=== PATIENT | female | born 1965 | race Caucasian/White ===

== ENCOUNTER 2021-01-16 16:56 | Emergency (ER) | payer MEDICARE, MEDICAID ==
[~2021-01-16] VITALS: Ht 160 cm; Wt 134.1 kg
[~2021-01-16 16:56] MED LIST: ASPI-1264 PO; ATOR40TA71 PO; GLAT40SY3 SQ; HYDR-3972 PO; LISI40TA13 PO; LORA-269 PO; NOR5T PO; OXYB5TAB16 PO
--- NOTE | 2021-01-16 19:21 | NUR ---
FERMÍN ([facility]): [phone]
[2021-01-16 19:35] LABS: CLARITY,URINE CLOUDY (Clear); COLOR,URINE YELLOW (Yellow); GLUCOSE, URINE NEGATIVE (Neg); KETONES,URINE NEGATIVE (Neg); LEUKOCYTE ESTERASE ,URINE TRACE (Neg); NITRITES, URINE NEGATIVE (Neg); OCCULT BLOOD,URINE TRACE-INTACT (Neg); PH,URINE 5.5 (4.8-8.0); PROTEIN,URINE NEGATIVE (Neg)
[2021-01-16 19:36] LABS: UA COLLECTION TYPE CLN CATCH MIDSTREAM
[2021-01-16 19:50] LABS: CAL OXALATE CRYSTALS 3+ /HPF (NEGATIVE)
[2021-01-16] MEDS ORDERED: ketorolac tromethamine 15mg/ml inj. IM ONE (19:50)
[2021-01-16 19:51] LABS: RBC,URINE 0-2 /HPF (0-2)
[2021-01-16 19:52] LABS: BACTERIA,URINE FEW /HPF (Neg); MUCUS STRANDS NONE SEEN /LPF (Neg); SQUAMOUS EPITHELIAL CELL,UR FEW /LPF (FEW)
[2021-01-16] MEDS ORDERED: CYCL-1 PO (21:56)
[2021-01-16 22:14] VITALS: BP 153/91
== END 2021-01-16 22:05 | disposition home or self-care (01) ==
LOC: ER 16:57
DX: M54.5 Low back pain (principal); M25.562 Pain in left knee; I10 Essential (primary) hypertension; Z86.73 Personal history of transient ischemic attack (TIA), and cerebral infarction without residual deficits; Z87.442 Personal history of urinary calculi; Z87.440 Personal history of urinary (tract) infections; Z90.89 Acquired absence of other organs; Z98.51 Tubal ligation status; Z56.0 Unemployment, unspecified; Z88.1 Allergy status to other antibiotic agents; Z88.8 Allergy status to other drugs, medicaments and biological substances; Z79.82 Long term (current) use of aspirin; Z79.899 Other long term (current) drug therapy
CPT/HCPCS: 73564; 81001; 87088; 96372; 99284; J1885

== ENCOUNTER 2021-05-01 06:45 | Day surgery (SDC) | payer MEDICARE, MEDICAID ==
[2021-05-01] VITALS (43 sets, daily range): BP systolic 108–165; BP diastolic 52–105
[~2021-05-01] VITALS: Ht 160 cm; Wt 133.0 kg
[~2021-05-01 06:45] MED LIST changes: +AMLO10TA13 PO; -ASPI-1264 PO; -ATOR40TA71 PO; +ATOR40TA72 PO; +BUPIVAcaine 0.5% inj/PF 30 ML ONE; +DIRO231C2 PO; -GLAT40SY3 SQ; +HYDR25TA4 PO; -LORA-269 PO; -NOR5T PO; -OXYB5TAB16 PO; +bacitracin 15gm ointment TP ONE; +ceFAZolin inj. 3,000 MG in normal saline 100ml IV soln 100 ML IV ONE; +famotidine 20mg tablet PO ONE; +ringers solution, lacted 1,000 ML IV SCH
[2021-05-01 08:28] LABS: BASOPHILS # (AUTO) 0.1 X10'3 (0-0.2); BASOPHILS % (AUTO) 1.2 % (0-1); EOSINOPHILS # (AUTO) 0.1 X10'3 (0-0.9); EOSINOPHILS % (AUTO) 1.8 % (0-6); LYMPHOCYTES # (AUTO) 0.8 X10'3 (1.1-4.8); LYMPHOCYTES % (AUTO) 15.7 % (21-51); MEAN CORPUSCULAR HEMOGLOBIN 29.4 PG (27.0-31.0); MEAN CORPUSCULAR HGB CONC 33.5 g/dL (33.0-36.5); MEAN CORPUSCULAR VOLUME 87.6 FL (78-98); MEAN PLATELET VOLUME 9.6 FL (7.4-10.4); MONOCYTES # (AUTO) 0.4 X10'3 (0-0.9); MONOCYTES % (AUTO) 7.7 % (2-12); NEUTROPHILS # (AUTO) 3.7 X10'3 (1.8-7.7); NEUTROPHILS % (AUTO) 73.6 % (42-75); PRE OP HEMOGLOBIN 14.1 g/dL (12.0-16.0); PRE OP PLATELET COUNT 261 X10'3 (140-440); RED BLOOD COUNT 4.79 X10'6 (4.20-5.60); RED CELL DISTRIBUTION WIDTH 14.1 % (11.5-14.5)
[2021-05-01] MEDS ORDERED: diazepam 5mg tablet PO ONE (08:30)
[2021-05-01 08:56] LABS: ALANINE AMINOTRANSFERASE 37 U/L (12-78); ALBUMIN 3.5 G/DL (3.4-5.0); ALBUMIN/GLOBULIN RATIO 0.8 (1.1-1.5); ALKALINE PHOSPHATASE 119 IU/L (46-116); ANION GAP 10 (8-16); ASPARTATE AMINO TRANSFERASE 22 U/L (10-37); BILIRUBIN,TOTAL 0.3 MG/DL (0.1-1.0); BLOOD UREA NITROGEN 10 MG/DL (7-18); BUN/CREATININE RATIO 14.1 (6.6-38.0); CALCIUM 9.4 MG/DL (8.5-10.1); CHLORIDE 108 MMOL/L (99-107); CREATININE 0.71 MG/DL (0.40-0.90); GLUCOSE 100 MG/DL (70-104); POTASSIUM 3.8 MMOL/L (3.5-5.1); SODIUM 145 MMOL/L (135-145); TOTAL CARBON DIOXIDE 27.4 MMOL/L (24-32); eGFR 86 ML/MIN
[2021-05-01] MEDS ORDERED: sevoflurane 250ml liquid IH ONE (09:01)
[2021-05-01] MEDS ORDERED: ondansetron/PF 4mg/2ml inj ONE (09:01)
[2021-05-01] MEDS ORDERED: glycopyrrolate 0.2mg/ml inj ONE (09:01)
[2021-05-01] MEDS ORDERED: fentaNYL/PF 50MCG/1 ML 2ML syringe ONE (09:06)
[2021-05-01] MEDS ORDERED: propofol inj 20 ML IV ONE (09:21)
[2021-05-01] MEDS ORDERED: midazolam 1 mg/ML 2ml injection ONE (09:21)
[2021-05-01] MEDS ORDERED: LIDOcaine 2% (20mg/ml) 5ml vial ONE (09:21)
--- NOTE | 2021-05-01 10:08 | NUR ---
Received from OR via , accompanied by Anesthesiologist DR CARRASQUILLO and report given by Anesthesiolgist. PT PRESETS WITH 20G PIV LEFT AC, DRESSING ON PT'S LEFT FOOT DRY AND INTACT. VSS. Addendum: 05/01/21 at 1013 by Olivia Soto RN, RN Amended: Links added.
[2021-05-01] MEDS ORDERED: hydrALAZINE 20mg/ml inj. IV PRN (10:25)
[2021-05-01] MEDS ORDERED: acetaminophen 1,000mg/100ml IV 100 ML IV PRN (10:25)
[2021-05-01] MEDS ORDERED: ondansetron/PF 4mg/2ml inj IV PRN ×2 (10:25→16:50)
[2021-05-01] MEDS ORDERED: ringers solution, lacted 1,000 ML IV SCH (10:25)
[2021-05-01] MEDS ORDERED: labetalol 20mg/4ml (5mg/ml) syringe IV PRN (10:25)
[2021-05-01] MEDS ORDERED: morphine 4 MG/ML inj SYRINge IV PRN (10:25)
[2021-05-01] MEDS ORDERED: proCHLORperazine 10 MG/2 ml inj IV PRN (10:25)
[2021-05-01] MEDS ORDERED: meperidine/PF 25mg/ml syringe IV PRN ×2 (10:25)
[2021-05-01] MEDS ORDERED: morphine 2 MG/ML inj. syringe IV PRN ×2 (10:25→16:50)
--- NOTE | 2021-05-01 11:10 | NUR ---
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 PT KIRSTEN NOT PUSH OR PULL WITH RIGHT SIDED FOOT. DR CARRASQUILLO CALLED, DR CARRASQUILLO ASKED TO CALL THE STROKE NURSE FOR PT. Addendum: 05/01/21 at 1122 by Olivia Soto RN, RN Amended: Links added.
--- NOTE | 2021-05-01 11:25 | NUR ---
PT BLOOD GLUCOSE 116 AT 1125, Addendum: 05/01/21 at 1236 by Olivia Soto RN RN Amended: Links added.
--- NOTE | 2021-05-01 11:52 | NUR ---
PT BACK FROM CT ON MONITOR, DR CARRASQUILLO STROKE NURSE LAKHWINDER AT BEDSIDE EVALAUTING PT. Addendum: 05/01/21 at 1153 by Olivia Soto RN, RN Amended: Links added.
--- NOTE | 2021-05-01 11:56 | NUR ---
TELE MONITOR AT BEDSIDE JACKLYNING FOR TELE NEURO, LAKHWINDER SALAZAR STROKE NURSE AT BEDSIDE WITH DR CARRASQUILLO. Addendum: 05/01/21 at 1157 by Olivia Soto RN, RN Amended: Links added.
--- NOTE | 2021-05-01 12:01 | NUR ---
PER DR CARRASQUILLO CT IS NEGATIVE, PT IS BEING EVALUATED BY GALI TA. Addendum: 05/01/21 at 1203 by Olivia Soto RN RN Amended: Links added.
[2021-05-01] MEDS ORDERED: acetaminophen 325mg tablet PO PRN ×2 (12:10→16:50)
--- NOTE | 2021-05-01 12:28 | NUR ---
DR ROSA TELE MEDICINE NEUROLOGIST COMPLETE EVALAUTEION. DR ROSA RECOMMENDED MIGRAINE COCKTAIL AND IF SYMPTOMS RESOLVE AFTER HEADACHE RESOLVES SHE CAN GO HOME AND FOLLOW UP WITH HER PCP. IF SYMPTOMS PERISIST WILL NEED AND ADMISSION FOR R/O CVA. PT'S RIGHT SIDED WEAKNESS IMPROVED SOME PRIOR TO NEUROLOGIST ASSESSMENT Addendum: 05/01/21 at 1231 by Olivia Soto RN, RN Amended: Links added.
--- NOTE | 2021-05-01 12:34 | NUR ---
DR WU NOTIFIED OF PT CONDITION, AND WE MIGHT NEED ADMIT ORDERSW FOR PT IF SYMPTOMS DO NOT RESOLVE. Addendum: 05/01/21 at 1235 by Olivia Soto RN, RN Amended: Links added.
[2021-05-01] MEDS: meperidine/PF 25mg/ml syringe IV PRN ×2 (13:33→14:56)
--- NOTE | 2021-05-01 13:36 | NUR ---
LAKHWINDER SALAZAR STROKE NURSE AT BEDSIDE, PT REPORTS DUNN PAIN 04/14. PT MEDICATED FOR PAIN 04/14. DR WU CALLED NO ANSWER. MCKAY KEANE RN REQUESTING TORADOL FOR PT DUNN. Addendum: 05/01/21 at 1337 by Mariajose Bryant RN Amended: Links added.
[2021-05-01] MEDS ORDERED: ketorolac trometh. 30mg/ml inj. IV ONE (14:20)
--- NOTE | 2021-05-01 15:45 | NUR ---
Patient states she still has a headache the right arm is better only has some numbness in her fingers. Right leg is better but still weaker than left, concerned about being able to use crutches at home.
[2021-05-01] MEDS ORDERED: mag hydrox/Alum hydrox/simeth 30ml oral suspension PO PRN (16:50)
[2021-05-01] MEDS ORDERED: HYDROcodone/acetaminophen 5mg/325mg tablet PO PRN (16:50)
[2021-05-01] MEDS ORDERED: magnesium hydroxide 30ml (MOM) UD suspension PO PRN (16:50)
--- NOTE | 2021-05-01 17:38 | NUR ---
PATIENT HAS MET ALL CRITERIA FOR TRANSFER TO THE ORTHO FLOOR. VSS. DRESSINGS INTACT. BED LOW, CALL LIGHT PRESENT AND 2 RAILS UP. CARLYLE SALAZAR PRESENT TO ACCEPT CARE OF PATIENT AND REPORT HAS BEEN CALLED. ALL QUESTIONS ANSWERED TO ACCEPTING RN. Addendum: 05/01/21 at 1758 by Olivia Soto RN RN Amended: Links added.
--- NOTE | 2021-05-01 18:00 | NUR ---
Patient in room ORTHO 4013. I have received report from Ermelinda SALAZAR and had the opportunity to ask questions and assume patient care. Addendum: 05/02/21 at 0120 by Kathryn Elizalde RN Amended: Links added.
[2021-05-01] MEDS: HYDROcodone/acetaminophen 10/325mg tab PO PRN (18:04)
--- NOTE | 2021-05-01 19:07 | NUR ---
Problems reprioritized. Patient report given, questions answered & plan of care reviewed with nadine juarez.
--- NOTE | 2021-05-01 21:00 | NUR ---
Pt. awake A & O Rt ORIF of her L 2nd digit with drsg and pin in place at this time. Pt. able to move self in bed with minimal assist at this time. Pt. voiding adequately. Call light within reach. Addendum: 05/02/21 at 0124 by Kathryn Elizalde RN Amended: Links added.
[2021-05-02] MEDS: heparin, porcine 5000 units/ml vial SQ SCH ×2 (00:01→07:27)
[2021-05-02] MEDS: HYDROcodone/acetaminophen 10/325mg tab PO PRN ×3 (00:01→10:09)
[2021-05-02] MEDS: docusate sod 100mg capsule PO SCH ×2 (00:06→07:25)
[2021-05-02] MEDS: [UNRECOGNIZED DRUG - OTHER] PO SCH ×2 (00:07→08:00)
[2021-05-02 03:00] VITALS: BP_SYST 124; BP_SYST 130; BP_DIAS 79
--- NOTE | 2021-05-02 06:24 | NUR ---
reported to days. anticipate discharge with weightbearing status clarified
[2021-05-02 06:58] LABS: ALANINE AMINOTRANSFERASE 35 U/L (12-78); ALBUMIN 3.2 G/DL (3.4-5.0); ALBUMIN/GLOBULIN RATIO 0.9 (1.1-1.5); ALKALINE PHOSPHATASE 127 IU/L (46-116); ANION GAP 9 (8-16); BILIRUBIN,TOTAL 0.4 MG/DL (0.1-1.0); BLOOD UREA NITROGEN 16 MG/DL (7-18); BUN/CREATININE RATIO 23.9 (6.6-38.0); CALCIUM 9.7 MG/DL (8.5-10.1); CHLORIDE 106 MMOL/L (99-107); CHOL/HDL RATIO 5.8 (0.00-4.99); CHOLESTEROL 261 MG/DL (0-200); CREATININE 0.67 MG/DL (0.40-0.90); GLUCOSE 136 MG/DL (70-104); HDL CHOLESTEROL 45 MG/DL (35-60); LDL CHOLESTEROL 176 MG/DL (50-100); SODIUM 139 MMOL/L (135-145); TOTAL CARBON DIOXIDE 24.4 MMOL/L (24-32); TOTAL PROTEIN 6.9 G/DL (6.4-8.2); TRIGLYCERIDES 141 MG/DL (20-135); eGFR > 90 ML/MIN
[2021-05-02 07:03] LABS: ASPARTATE AMINO TRANSFERASE 31 U/L (10-37)
[2021-05-02 07:05] LABS: POTASSIUM 4.4 MMOL/L (3.5-5.1)
[2021-05-02 08:00] VITALS: BP 155/84
[2021-05-02] MEDS ORDERED: atorvastatin 20mg tablet PO SCH (08:00)
[2021-05-02] MEDS ORDERED: amLODIPine 5mg tablet PO SCH (08:00)
[2021-05-02] MEDS ORDERED: HYDROchlorothiazide 25mg tablet PO SCH (08:00)
[2021-05-02] MEDS ORDERED: lisinopril 20mg tablet PO SCH (08:00)
[2021-05-02 08:28] LABS: BASOPHILS # (AUTO) 0.1 X10'3 (0-0.2); BASOPHILS % (AUTO) 0.8 % (0-1); EOSINOPHILS % (AUTO) 0.1 % (0-6); HEMATOCRIT 41.3 % (35.0-45.0); HEMOGLOBIN 14.1 g/dl (12.0-16.0); LYMPHOCYTES # (AUTO) 0.9 X10'3 (1.1-4.8); LYMPHOCYTES % (AUTO) 10.3 % (21-51); MEAN CORPUSCULAR HEMOGLOBIN 29.7 PG (27.0-31.0); MEAN CORPUSCULAR HGB CONC 34.3 g/dL (33.0-36.5); MEAN CORPUSCULAR VOLUME 86.8 FL (78-98); MEAN PLATELET VOLUME 9.6 FL (7.4-10.4); MONOCYTES # (AUTO) 0.6 X10'3 (0-0.9); MONOCYTES % (AUTO) 6.9 % (2-12); NEUTROPHILS # (AUTO) 7.2 X10'3 (1.8-7.7); NEUTROPHILS % (AUTO) 81.9 % (42-75); PLATELET COUNT 274 X10'3 (140-440); RED BLOOD COUNT 4.75 X10'6 (4.20-5.60); RED CELL DISTRIBUTION WIDTH 13.8 % (11.5-14.5); WHITE BLOOD COUNT 8.8 X10'3 (4.5-11.0)
[2021-05-02 08:49] LABS: PARTIAL THROMBOPLASTIN TIME 24 SECONDS (22-32)
[2021-05-02] MEDS ORDERED: FLUT16SP2 BOTHNARES (11:59)
[2021-05-02] MEDS ORDERED: AMOX-580 PO (11:59)
[2021-05-02 12:00] VITALS: BP 142/77
== END 2021-05-02 16:15 | disposition home or self-care (01) ==
LOC: PAS 06:45 → ORTHO 4S 16:53 → PAS 05-02 16:15
PROVIDERS: ATTEND Podiatrist Foot & Ankle Surgery
DX: S93.115A Dislocation of interphalangeal joint of left lesser toe(s), initial encounter (principal); J32.8 Other chronic sinusitis; G35 Multiple sclerosis; C85.90 Non-Hodgkin lymphoma, unspecified, unspecified site; E78.5 Hyperlipidemia, unspecified; I10 Essential (primary) hypertension; G89.29 Other chronic pain; E66.9 Obesity, unspecified; Z68.43 Body mass index [BMI] 50.0-59.9, adult; Z79.82 Long term (current) use of aspirin; Z79.899 Other long term (current) drug therapy; Z98.890 Other specified postprocedural states; Z88.8 Allergy status to other drugs, medicaments and biological substances; Z88.1 Allergy status to other antibiotic agents; Z91.041 Radiographic dye allergy status; Z87.442 Personal history of urinary calculi; Z79.01 Long term (current) use of anticoagulants; Z20.822 Contact with and (suspected) exposure to COVID-19; Z98.51 Tubal ligation status; Z86.73 Personal history of transient ischemic attack (TIA), and cerebral infarction without residual deficits; Z82.49 Family history of ischemic heart disease and other diseases of the circulatory system; W19.XXXA Unspecified fall, initial encounter; Y93.89 Activity, other specified; Y92.89 Other specified places as the place of occurrence of the external cause; Y99.8 Other external cause status
CPT/HCPCS: 28675; 36415; 70450; 73620; 76000; 80053; 80061; 82948; 85025; 85610; 85730; 87635; 97161; 97530; A6223; C1713; C9803; J0131; J0690; J0780; J1644; J1885; J2001; J2175; J2250; J2270; J2405; J2704; J3010; Z7506; Z7508; Z7512; A4215; A4618; A6449; A7000; G0378; J3490; J7120

== ENCOUNTER 2021-06-22 20:42 | Emergency (ER) | payer MEDICARE, MEDICAID ==
[~2021-06-22] VITALS: Ht 160 cm; Wt 127.3 kg
[~2021-06-22 20:42] MED LIST changes: +AMOX-580 PO; -BUPIVAcaine 0.5% inj/PF 30 ML ONE; +FLUT16SP2 BOTHNARES; -bacitracin 15gm ointment TP ONE; -ceFAZolin inj. 3,000 MG in normal saline 100ml IV soln 100 ML IV ONE; -famotidine 20mg tablet PO ONE; -ringers solution, lacted 1,000 ML IV SCH
[2021-06-22 20:48] VITALS: BP 186/93
[2021-06-22] MEDS ORDERED: normal saline 1000ml 1,000 ML IV ONE (21:05)
[2021-06-22] MEDS ORDERED: morphine 4 MG/ML inj SYRINge IV ONE (21:05)
[2021-06-22] MEDS ORDERED: proCHLORperazine 10 MG/2 ml inj IV ONE (21:25)
[2021-06-22] MEDS ORDERED: ketorolac tromethamine 15mg/ml inj. IV ONE (21:25)
[2021-06-22 21:36] LABS: BASOPHILS # (AUTO) 0.1 X10'3 (0-0.2); BASOPHILS % (AUTO) 0.7 % (0-1); EOSINOPHILS # (AUTO) 0.2 X10'3 (0-0.9); EOSINOPHILS % (AUTO) 2.5 % (0-6); HEMATOCRIT 39.7 % (35.0-45.0); HEMOGLOBIN 13.8 g/dl (12.0-16.0); LYMPHOCYTES # (AUTO) 0.9 X10'3 (1.1-4.8); LYMPHOCYTES % (AUTO) 10.9 % (21-51); MEAN CORPUSCULAR HEMOGLOBIN 30.4 PG (27.0-31.0); MEAN CORPUSCULAR HGB CONC 34.7 g/dL (33.0-36.5); MEAN CORPUSCULAR VOLUME 87.6 FL (78-98); MEAN PLATELET VOLUME 9.7 FL (7.4-10.4); MONOCYTES # (AUTO) 0.6 X10'3 (0-0.9); MONOCYTES % (AUTO) 7.3 % (2-12); NEUTROPHILS # (AUTO) 6.1 X10'3 (1.8-7.7); NEUTROPHILS % (AUTO) 78.6 % (42-75); PLATELET COUNT 242 X10'3 (140-440); RED BLOOD COUNT 4.53 X10'6 (4.20-5.60); RED CELL DISTRIBUTION WIDTH 14.2 % (11.5-14.5); WHITE BLOOD COUNT 7.8 X10'3 (4.5-11.0)
[2021-06-22 21:53] LABS: ALANINE AMINOTRANSFERASE 37 U/L (12-78); ALBUMIN 3.2 G/DL (3.4-5.0); ALBUMIN/GLOBULIN RATIO 0.9 (1.1-1.5); ALKALINE PHOSPHATASE 107 IU/L (46-116); ANION GAP 8 (8-16); BILIRUBIN,TOTAL 0.2 MG/DL (0.1-1.0); BLOOD UREA NITROGEN 18 MG/DL (7-18); BUN/CREATININE RATIO 23.1 (6.6-38.0); CALCIUM 9.2 MG/DL (8.5-10.1); CHLORIDE 112 MMOL/L (99-107); CREATININE 0.78 MG/DL (0.40-0.90); GLUCOSE 113 MG/DL (70-104); LIPASE 132 U/L (73-393); SODIUM 146 MMOL/L (135-145); TOTAL CARBON DIOXIDE 26.4 MMOL/L (24-32); TOTAL PROTEIN 6.9 G/DL (6.4-8.2); eGFR 77 ML/MIN
[2021-06-22 21:59] LABS: ASPARTATE AMINO TRANSFERASE 32 U/L (10-37); POTASSIUM 3.9 MMOL/L (3.5-5.1)
[2021-06-22 22:11] LABS: TOTAL CELLS COUNTED 100
[2021-06-22 22:12] LABS: PLATELET ESTIMATE NORMAL
[2021-06-22 22:37] LABS: URINE HCG NEGATIVE (NEG)
[2021-06-22 22:38] LABS: CLARITY,URINE SLIGHTLY CLOUDY (Clear); COLOR,URINE YELLOW (Yellow); UA COLLECTION TYPE CLN CATCH MIDSTREAM
[2021-06-22 22:39] LABS: GLUCOSE, URINE NEGATIVE (Neg); KETONES,URINE NEGATIVE (Neg); LEUKOCYTE ESTERASE ,URINE NEGATIVE (Neg); NITRITES, URINE NEGATIVE (Neg); OCCULT BLOOD,URINE LARGE (Neg); PROTEIN,URINE NEGATIVE (Neg); UROBILINOGEN,URINE 0.2 E.U/dL (0.2-1.0)
[2021-06-22 22:45] LABS: CAL OXALATE CRYSTALS FEW /HPF (NEGATIVE); MUCUS STRANDS FEW /LPF (Neg)
[2021-06-22 22:46] LABS: BACTERIA,URINE FEW /HPF (Neg); RBC,URINE 20-50 /HPF (0-2)
[2021-06-22 22:47] LABS: SQUAMOUS EPITHELIAL CELL,UR MODERATE /LPF (FEW)
[2021-06-22] MEDS ORDERED: IBUP-1985 PO (23:33)
[2021-06-22] MEDS ORDERED: FLO0.4C PO (23:33)
[2021-06-22] MEDS ORDERED: CEPH250T PO (23:33)
[2021-06-24] MEDS ORDERED: IBUP-1986 PO (08:05)
[2021-06-24] MEDS ORDERED: ATI1T PO (08:07)
== END 2021-06-23 00:21 | disposition home or self-care (01) ==
LOC: ER 20:42
DX: N20.0 Calculus of kidney (principal); G35 Multiple sclerosis; I10 Essential (primary) hypertension; Z87.440 Personal history of urinary (tract) infections; Z86.73 Personal history of transient ischemic attack (TIA), and cerebral infarction without residual deficits; Z90.49 Acquired absence of other specified parts of digestive tract; Z98.51 Tubal ligation status; Z56.0 Unemployment, unspecified; Z79.2 Long term (current) use of antibiotics; Z87.442 Personal history of urinary calculi; Z79.899 Other long term (current) drug therapy; Z91.041 Radiographic dye allergy status; Z88.1 Allergy status to other antibiotic agents; Z88.8 Allergy status to other drugs, medicaments and biological substances
CPT/HCPCS: 36415; 74176; 80053; 81001; 81025; 83690; 85007; 85025; 87088; 96361; 96374; 96375; 99284; J0780; J1885; J2270; J7030

== ENCOUNTER 2021-06-23 16:10 | Inpatient (IN) | payer MEDICARE, MEDICAID ==
[~2021-06-23] VITALS: Ht 160 cm; Wt 127.3 kg
[~2021-06-23 16:10] MED LIST changes: +CEPH250T PO; +FLO0.4C PO; +IBUP-1985 PO
[2021-06-23] MEDS ORDERED: morphine 10mg/ml inj. IV ONE (19:50)
[2021-06-23 21:11] LABS: BASOPHILS % (AUTO) 0.4 % (0-1); EOSINOPHILS % (AUTO) 0.4 % (0-6); HEMOGLOBIN 15.2 g/dl (12.0-16.0); MEAN CORPUSCULAR HEMOGLOBIN 29.9 PG (27.0-31.0); MEAN CORPUSCULAR HGB CONC 34.5 g/dL (33.0-36.5); MEAN CORPUSCULAR VOLUME 86.7 FL (78-98); MEAN PLATELET VOLUME 9.6 FL (7.4-10.4); MONOCYTES # (AUTO) 0.9 X10'3 (0-0.9); MONOCYTES % (AUTO) 8.2 % (2-12); NEUTROPHILS # (AUTO) 8.9 X10'3 (1.8-7.7); PLATELET COUNT 241 X10'3 (140-440); RED BLOOD COUNT 5.08 X10'6 (4.20-5.60); RED CELL DISTRIBUTION WIDTH 14.1 % (11.5-14.5); WHITE BLOOD COUNT 10.9 X10'3 (4.5-11.0)
[2021-06-23 21:14] LABS: ALBUMIN 3.4 G/DL (3.4-5.0); ANION GAP 9 (8-16); BLOOD UREA NITROGEN 15 MG/DL (7-18); BUN/CREATININE RATIO 13.2 (6.6-38.0); CALCIUM 9.6 MG/DL (8.5-10.1); CHLORIDE 104 MMOL/L (99-107); CREATININE 1.14 MG/DL (0.40-0.90); GLUCOSE 123 MG/DL (70-104); SODIUM 140 MMOL/L (135-145); TOTAL CARBON DIOXIDE 27.4 MMOL/L (24-32); eGFR 50 ML/MIN
[2021-06-23] MEDS ORDERED: potassium Cl 20 mEq SR tablet PO PRN ×2 (22:45)
[2021-06-23] MEDS ORDERED: magnesium 2GM in 50ml NS 50 ML IV PRN (22:45)
[2021-06-23] MEDS ORDERED: acetaminophen 325mg tablet PO PRN (22:45)
[2021-06-23] MEDS ORDERED: magnesium 4gm in 100ml NS 100 ML IV PRN (22:45)
[2021-06-23] MEDS ORDERED: magnesium Cl slow-release 64mg tablet PO PRN (22:45)
[2021-06-23] MEDS ORDERED: morphine 2 MG/ML inj. syringe IV PRN (22:45)
[2021-06-23] MEDS ORDERED: potassium Cl 40MEQ/1/2NS 520ml 520 ML IV PRN ×2 (22:45)
[2021-06-23] MEDS: normal saline 1000ml 1,000 ML IV SCH (23:09)
[2021-06-24] MEDS: morphine 2 MG/ML inj. syringe IV PRN ×6 (00:45→18:29)
[2021-06-24] MEDS: ondansetron/PF 4mg/2ml inj IV PRN ×3 (00:45→18:29)
--- NOTE | 2021-06-24 02:04 | NUR ---
PT MOVED TO A HOSPITAL BED DUE TO PT COMPLAINTS THAT THE GURNEY WAS CAUSING HER EVEN WORSE BACK PAIN. PT IS SITTING COMFORTABLY ON THE NEW BED, RESTING WITH EYES CLOSED WITH DEEP AND EVEN RESPIRATIONS.
[2021-06-24 04:05] LABS: BASOPHILS % (AUTO) 0.3 % (0-1); EOSINOPHILS % (AUTO) 0.4 % (0-6); HEMATOCRIT 41.7 % (35.0-45.0); HEMOGLOBIN 13.9 g/dl (12.0-16.0); LYMPHOCYTES # (AUTO) 0.9 X10'3 (1.1-4.8); LYMPHOCYTES % (AUTO) 8.4 % (21-51); MEAN CORPUSCULAR HEMOGLOBIN 29.8 PG (27.0-31.0); MEAN CORPUSCULAR HGB CONC 33.4 g/dL (33.0-36.5); MEAN PLATELET VOLUME 9.9 FL (7.4-10.4); MONOCYTES # (AUTO) 0.8 X10'3 (0-0.9); NEUTROPHILS # (AUTO) 8.7 X10'3 (1.8-7.7); NEUTROPHILS % (AUTO) 82.9 % (42-75); PLATELET COUNT 210 X10'3 (140-440); RED BLOOD COUNT 4.68 X10'6 (4.20-5.60); RED CELL DISTRIBUTION WIDTH 13.6 % (11.5-14.5); WHITE BLOOD COUNT 10.4 X10'3 (4.5-11.0)
[2021-06-24 04:16] LABS: ALBUMIN 3.1 G/DL (3.4-5.0); ANION GAP 10 (8-16); BLOOD UREA NITROGEN 18 MG/DL (7-18); BUN/CREATININE RATIO 16.8 (6.6-38.0); CALCIUM 9.4 MG/DL (8.5-10.1); CHLORIDE 106 MMOL/L (99-107); CREATININE 1.07 MG/DL (0.40-0.90); GLUCOSE 146 MG/DL (70-104); MAGNESIUM 2.1 MG/DL (1.5-2.4); POTASSIUM 3.7 MMOL/L (3.5-5.1); SODIUM 140 MMOL/L (135-145); eGFR 53 ML/MIN
[2021-06-24] MEDS: K and/or MAG REPLACEMENT MC SCH ×2 (08:00→21:10)
[2021-06-24] MEDS: docusate sod 100mg capsule PO SCH ×2 (08:00→20:00)
[2021-06-24] MEDS ORDERED: IBUP-1986 PO (08:05)
[2021-06-24] MEDS ORDERED: ATI1T PO (08:07)
[2021-06-24] MEDS ORDERED: FLU VACC QS2021-22(6MOS UP)/PF 60 MCG/0.5 ML SYRINGE IM ONE (09:00)
[2021-06-24] MEDS: ringers solution, lacted 1,000 ML IV SCH ×2 (10:10→20:10)
[2021-06-24] MEDS: normal saline 1000ml 1,000 ML IV SCH ×2 (11:01→18:45)
--- NOTE | 2021-06-24 12:01 | NUR ---
OR TO PICK PT TO SURG AROUND 190
--- NOTE | 2021-06-24 12:14 | NUR ---
npo since 0900 today
--- NOTE | 2021-06-24 13:35 | NUR ---
PAGER ID: [phone] MESSAGE: MARIAELENA [phone] RE: [facility] BED 9 MS NOT LASTING THE 4 HOURS. CAN WE GIVE SOEMTHING ELSE?
[2021-06-24] MEDS ORDERED: morphine 2 MG/ML inj. syringe IV PRN (14:05)
[2021-06-24 15:43] LABS: CLARITY,URINE SLIGHTLY CLOUDY (Clear); COLOR,URINE YELLOW (Yellow); GLUCOSE, URINE NEGATIVE (Neg); KETONES,URINE TRACE mg/dl (Neg); LEUKOCYTE ESTERASE ,URINE TRACE (Neg); NITRITES, URINE NEGATIVE (Neg); OCCULT BLOOD,URINE MODERATE (Neg); PROTEIN,URINE NEGATIVE (Neg); UA COLLECTION TYPE CLN CATCH MIDSTREAM; UROBILINOGEN,URINE 0.2 E.U/dL (0.2-1.0)
--- NOTE | 2021-06-24 15:45 | NUR ---
OR CALLED PT GOING TO SURGERY TOMORROW AT 0768
[2021-06-24 15:51] LABS: BACTERIA,URINE 1+ /HPF (Neg); CAL OXALATE CRYSTALS 4+ /HPF (NEGATIVE); MUCUS STRANDS FEW /LPF (Neg); RENAL CELLS, URINE FEW /HPF; SQUAMOUS EPITHELIAL CELL,UR MODERATE /LPF (FEW); TRANSITIONAL EPI CELLS,URINE FEW /HPF
[2021-06-24 19:35] VITALS: BP 143/86
[2021-06-24] MEDS ORDERED: levoFLOXACIN-Levaquin 500mg/D5 100 ML IV ONE (19:40)
[2021-06-24] MEDS ORDERED: LORazepam 1 MG tablet PO PRN (19:45)
[2021-06-24] MEDS: DIROXIMEL FUMARATE 231 MG PO SCH (20:00)
[2021-06-24] MEDS ORDERED: CefTRIAXone/D5W-Rocephin 1gm 50 ML IV SCH (20:00)
--- NOTE | 2021-06-24 20:20 | NUR ---
PATIENT ADMITTED TO 340A FROM ER FOR KIDNEY STONE. PLACED COMFORTABLE IN BED. VITAL SIGNS TAKEN AND RECORDED.
[2021-06-24] MEDS: HYDROcodone/acetaminophen 10/325mg tab PO PRN (20:33)
[2021-06-25] VITALS (12 sets, daily range): BP systolic 135–175; BP diastolic 66–89
[2021-06-25] MEDS: morphine 2 MG/ML inj. syringe IV PRN ×2 (01:23→11:31)
[2021-06-25] MEDS: ringers solution, lacted 1,000 ML IV SCH ×2 (03:54→11:37)
[2021-06-25] MEDS: normal saline 1000ml 1,000 ML IV SCH ×2 (04:45→14:45)
[2021-06-25] MEDS: HYDROcodone/acetaminophen 10/325mg tab PO PRN ×2 (04:50→15:35)
--- NOTE | 2021-06-25 06:09 | NUR ---
Problems reprioritized. Patient report given, questions answered & plan of care reviewed with ONEIL SALAZAR.
--- NOTE | 2021-06-25 07:00 | NUR ---
Pt. taken to OR for possible R side stent placement by John.
--- NOTE | 2021-06-25 07:11 | NUR ---
Called report to recovery.
[2021-06-25] MEDS ORDERED: HYDROmorphone/PF 0.2 MG/ML SYRINGE IV PRN ×2 (07:15)
[2021-06-25] MEDS ORDERED: labetalol 20mg/4ml (5mg/ml) syringe IV PRN (07:15)
[2021-06-25] MEDS ORDERED: ringers solution, lacted 1,000 ML IV SCH (07:15)
[2021-06-25] MEDS ORDERED: ondansetron/PF 4mg/2ml inj IV PRN (07:15)
[2021-06-25] MEDS ORDERED: morphine 4 MG/ML inj SYRINge IV PRN (07:15)
[2021-06-25] MEDS ORDERED: morphine 2 MG/ML inj. syringe IV PRN (07:15)
[2021-06-25] MEDS ORDERED: hydrALAZINE 20mg/ml inj. IV PRN (07:15)
[2021-06-25] MEDS ORDERED: proCHLORperazine 10 MG/2 ml inj IV PRN (07:15)
[2021-06-25] MEDS ORDERED: meperidine/PF 25mg/ml syringe IV PRN (07:15)
[2021-06-25] MEDS: K and/or MAG REPLACEMENT MC SCH (07:20)
[2021-06-25] MEDS: docusate sod 100mg capsule PO SCH (07:20)
[2021-06-25] MEDS: DIROXIMEL FUMARATE 231 MG PO SCH (07:21)
[2021-06-25] MEDS ORDERED: fentaNYL/PF 50MCG/1 ML 2ML syringe ONE (07:34)
[2021-06-25] MEDS ORDERED: midazolam 1 mg/ML 2ml injection ONE (07:36)
[2021-06-25] MEDS ORDERED: LIDOcaine 2% (20mg/ml) 5ml vial ONE (07:53)
[2021-06-25] MEDS ORDERED: ondansetron/PF 4mg/2ml inj ONE (07:53)
[2021-06-25] MEDS ORDERED: dexamethasone sod phosphate 4mg/ml inj. ONE (07:53)
[2021-06-25] MEDS ORDERED: propofol inj 20 ML IV ONE (07:53)
[2021-06-25] MEDS ORDERED: atorvastatin 20mg tablet PO SCH (08:00)
[2021-06-25] MEDS ORDERED: amLODIPine 5mg tablet PO SCH (08:00)
[2021-06-25] MEDS ORDERED: levoFLOXACIN-Levaquin 500mg/D5 100 ML IV SCH (08:00)
[2021-06-25] MEDS ORDERED: HYDROchlorothiazide 25mg tablet PO SCH (08:00)
[2021-06-25] MEDS ORDERED: lisinopril 20mg tablet PO SCH (08:00)
--- NOTE | 2021-06-25 08:03 | NUR ---
Received from OR via bed, accompanied by Anesthesiologist Dr. Park and report given by Anesthesiolgist and OR nurse. Pt arrived drowsy with oral airway and on 10L 02 with mask. Pt VVS. 18G to left upper arm. LR running at 100. Addendum: 06/25/21 at 0821 by Destiny Salas RN Amended: Links added.
--- NOTE | 2021-06-25 09:23 | NUR ---
Report called to receiving nurse. Transferred via BED, no Belongings. Nurses aid at bedside to receive pt. Pt bed wheels locked and low and call light within reach. Charge nurse notified of pt arrival. Special Issues communicated to receiving nurse aKthleen. Pt met all d/c criteria from [facility]. Addendum: 06/25/21 at 9702 by Destiny Salas RN Amended: Links added.
[2021-06-25 10:38] LABS: BASOPHILS # (AUTO) 0.1 X10'3 (0-0.2); BASOPHILS % (AUTO) 1.1 % (0-1); EOSINOPHILS # (AUTO) 0.1 X10'3 (0-0.9); EOSINOPHILS % (AUTO) 1.7 % (0-6); HEMATOCRIT 41.7 % (35.0-45.0); HEMOGLOBIN 13.9 g/dl (12.0-16.0); LYMPHOCYTES # (AUTO) 0.8 X10'3 (1.1-4.8); LYMPHOCYTES % (AUTO) 16.8 % (21-51); MEAN CORPUSCULAR HEMOGLOBIN 29.7 PG (27.0-31.0); MEAN CORPUSCULAR HGB CONC 33.4 g/dL (33.0-36.5); MEAN CORPUSCULAR VOLUME 88.8 FL (78-98); MEAN PLATELET VOLUME 9.8 FL (7.4-10.4); MONOCYTES # (AUTO) 0.4 X10'3 (0-0.9); MONOCYTES % (AUTO) 8.3 % (2-12); NEUTROPHILS # (AUTO) 3.6 X10'3 (1.8-7.7); NEUTROPHILS % (AUTO) 72.1 % (42-75); PLATELET COUNT 203 X10'3 (140-440); RED CELL DISTRIBUTION WIDTH 13.8 % (11.5-14.5); WHITE BLOOD COUNT 4.9 X10'3 (4.5-11.0)
[2021-06-25 10:54] LABS: ALBUMIN 2.9 G/DL (3.4-5.0); ANION GAP 8 (8-16); BLOOD UREA NITROGEN 13 MG/DL (7-18); BUN/CREATININE RATIO 16.7 (6.6-38.0); CALCIUM 9.4 MG/DL (8.5-10.1); CHLORIDE 106 MMOL/L (99-107); CREATININE 0.78 MG/DL (0.40-0.90); GLUCOSE 105 MG/DL (70-104); MAGNESIUM 2.1 MG/DL (1.5-2.4); POTASSIUM 3.9 MMOL/L (3.5-5.1); SODIUM 141 MMOL/L (135-145); TOTAL CARBON DIOXIDE 27.1 MMOL/L (24-32); eGFR 77 ML/MIN
[2021-06-25] MEDS ORDERED: ACET-1008 PO (11:47)
--- NOTE | 2021-06-25 11:57 | NUR ---
PT called back and they will come evaluate the pt.
[2021-06-25 12:26] LABS: PARTIAL THROMBOPLASTIN TIME 25 SECONDS (22-32)
[2021-06-25] MEDS ORDERED: CIPR-259 PO (13:05)
--- NOTE | 2021-06-25 15:23 | NUR ---
PT notified primary RN pt. OK for discharge.
--- NOTE | 2021-06-25 16:00 | NUR ---
DISCHARGE NOTE: Reviewed discharge paperwork with pt. She is aware to f/u with her PCP, foot , and John. She has [place] and tyelenol at home for pain and a discharge ATB. Reviewed discharge medications and possible ASE. Pt. had the opportunity to ask questions. Pt. gathered her belongings and took them home with her. IV DC'd, cannula intact, pressure bandage applied.
[2021-06-26] MEDS ORDERED: FLU VACC QS2021-22(6MOS UP)/PF 60 MCG/0.5 ML SYRINGE IM ONE (08:00)
== END 2021-06-25 16:10 | disposition home or self-care (01) | DRG 660 ==
LOC: ER 16:11 → ED HOLD 22:47 → SUR 3N 06-24 20:15
PROVIDERS: ADMIT Internal Medicine; ATTEND Family Medicine
PROC: BT1F1ZZ Fluoroscopy of Left Kidney, Ureter and Bladder using Low Osmolar Contrast (ICD-10-PCS; 2021-06-25)
PROC: 0T778DZ Dilation of Left Ureter with Intraluminal Device, Via Natural or Artificial Opening Endoscopic (ICD-10-PCS; principal; 2021-06-25 07:26)
DX: N13.2 Hydronephrosis with renal and ureteral calculous obstruction (principal); Z68.42 Body mass index [BMI] 45.0-49.9, adult; E78.5 Hyperlipidemia, unspecified; G47.30 Sleep apnea, unspecified; G35 Multiple sclerosis; E66.9 Obesity, unspecified; I12.9 Hypertensive chronic kidney disease with stage 1 through stage 4 chronic kidney disease, or unspecified chronic kidney disease; Z20.822 Contact with and (suspected) exposure to COVID-19; N18.9 Chronic kidney disease, unspecified; T39.315A Adverse effect of propionic acid derivatives, initial encounter; T50.2X5A Adverse effect of carbonic-anhydrase inhibitors, benzothiadiazides and other diuretics, initial encounter; Z85.72 Personal history of non-Hodgkin lymphomas; Z86.73 Personal history of transient ischemic attack (TIA), and cerebral infarction without residual deficits; Z87.442 Personal history of urinary calculi; Z90.49 Acquired absence of other specified parts of digestive tract; Z87.440 Personal history of urinary (tract) infections; Z88.8 Allergy status to other drugs, medicaments and biological substances; Z91.041 Radiographic dye allergy status; Z98.51 Tubal ligation status; Z56.0 Unemployment, unspecified; Z79.899 Other long term (current) drug therapy; Y92.89 Other specified places as the place of occurrence of the external cause
CPT/HCPCS: 36415; 74018; 74176; 76000; 80048; 80053; 81001; 81025; 82948; 83690; 83735; 84145; 85007; 85025; 85610; 85730; 87081; 87088; 87635; 93005; 96361; 96374; 96375; 97116; 97161; 97530; 99284; 99285; A4618; C1758; C1769; C2617; G0378; J0696; J0780; J1100; J1885; J2001; J2250; J2270; J2405; J2704; J3010; J7030; J7120

== ENCOUNTER 2021-07-19 19:49 | Inpatient (IN) | payer MEDICARE, MEDICAID ==
[~2021-07-19] VITALS: Ht 160 cm; Wt 125.6 kg
[~2021-07-19 19:49] MED LIST changes: -AMOX-580 PO; +ATI1T PO; -CEPH250T PO; +CIPR-259 PO; -FLO0.4C PO; -FLUT16SP2 BOTHNARES; -IBUP-1985 PO
--- NOTE | 2021-07-19 20:19 | NUR ---
PT ROOMED. ASSUMED CARE OF PT. PA AT BEDSIDE EXAMINING PT.
[2021-07-19] MEDS ORDERED: ketorolac tromethamine 15mg/ml inj. IM ONE (20:20)
[2021-07-19] MEDS ORDERED: ondansetron 4mg rapidly disintigrating tab PO ONE (20:20)
[2021-07-19 21:08] LABS: BASOPHILS % (AUTO) 0.7 % (0-1); EOSINOPHILS # (AUTO) 0.1 X10'3 (0-0.9); EOSINOPHILS % (AUTO) 0.8 % (0-6); HEMATOCRIT 42.6 % (35.0-45.0); HEMOGLOBIN 14.5 g/dl (12.0-16.0); LYMPHOCYTES % (AUTO) 13.7 % (21-51); MEAN CORPUSCULAR HEMOGLOBIN 29.9 PG (27.0-31.0); MEAN CORPUSCULAR HGB CONC 34.2 g/dL (33.0-36.5); MEAN CORPUSCULAR VOLUME 87.4 FL (78-98); MEAN PLATELET VOLUME 9.2 FL (7.4-10.4); MONOCYTES # (AUTO) 0.6 X10'3 (0-0.9); MONOCYTES % (AUTO) 8.4 % (2-12); NEUTROPHILS # (AUTO) 5.6 X10'3 (1.8-7.7); NEUTROPHILS % (AUTO) 76.4 % (42-75); PLATELET COUNT 239 X10'3 (140-440); RED BLOOD COUNT 4.87 X10'6 (4.20-5.60); RED CELL DISTRIBUTION WIDTH 13.6 % (11.5-14.5); WHITE BLOOD COUNT 7.4 X10'3 (4.5-11.0)
[2021-07-19 21:34] LABS: ALANINE AMINOTRANSFERASE 46 U/L (12-78); ALBUMIN 3.6 G/DL (3.4-5.0); ALBUMIN/GLOBULIN RATIO 0.8 (1.1-1.5); ALKALINE PHOSPHATASE 112 IU/L (46-116); ANION GAP 12 (8-16); ASPARTATE AMINO TRANSFERASE 28 U/L (10-37); BILIRUBIN,TOTAL 0.3 MG/DL (0.1-1.0); BLOOD UREA NITROGEN 16 MG/DL (7-18); BUN/CREATININE RATIO 18.4 (6.6-38.0); CALCIUM 10.2 MG/DL (8.5-10.1); CHLORIDE 105 MMOL/L (99-107); CREATININE 0.87 MG/DL (0.40-0.90); GLUCOSE 133 MG/DL (70-104); SODIUM 142 MMOL/L (135-145); TOTAL CARBON DIOXIDE 24.8 MMOL/L (24-32); TOTAL PROTEIN 7.9 G/DL (6.4-8.2); eGFR 68 ML/MIN
[2021-07-19] MEDS ORDERED: HYDROcodone/acetaminophen 5mg/325mg tablet PO ONE (21:55)
[2021-07-19 23:22] LABS: CLARITY,URINE CLOUDY (Clear); COLOR,URINE YELLOW (Yellow); GLUCOSE, URINE NEGATIVE (Neg); KETONES,URINE NEGATIVE (Neg); NITRITES, URINE NEGATIVE (Neg); OCCULT BLOOD,URINE LARGE (Neg); PROTEIN,URINE 100 mg/dl (Neg); UA COLLECTION TYPE CLN CATCH MIDSTREAM; UROBILINOGEN,URINE 0.2 E.U/dL (0.2-1.0)
[2021-07-19 23:23] LABS: BACTERIA,URINE FEW /HPF (Neg); CAL OXALATE CRYSTALS FEW /HPF (NEGATIVE); LEUKOCYTE ESTERASE ,URINE TRACE (Neg); RBC,URINE TNTC /HPF (0-2); SQUAMOUS EPITHELIAL CELL,UR FEW /LPF (FEW)
[2021-07-19] MEDS ORDERED: HYDR-3965 PO (23:58)
[2021-07-20] MEDS ORDERED: CefTRIAXone/D5W-Rocephin 1gm 50 ML IV ONE (00:05)
[2021-07-20] MEDS ORDERED: ondansetron/PF 4mg/2ml inj IV ONE (00:05)
[2021-07-20] MEDS ORDERED: morphine 2 MG/ML inj. syringe IV ONE (00:05)
--- NOTE | 2021-07-20 01:24 | NUR ---
PT SWITCHED FROM [facility] TO [facility] BED
[2021-07-20] MEDS ORDERED: diphenhydrAMINE 50 mg/ml inj IV PRN (01:30)
[2021-07-20] MEDS ORDERED: morphine 2 MG/ML inj. syringe IV PRN (01:30)
[2021-07-20] MEDS ORDERED: acetaminophen 325mg tablet PO PRN ×2 (01:30)
[2021-07-20] MEDS ORDERED: mag hydrox/Alum hydrox/simeth 30ml oral suspension PO PRN (01:30)
[2021-07-20] MEDS ORDERED: HYDROmorphone inj. 0.5 MG/0.5 ML DISP.SYRIN IV PRN (01:30)
[2021-07-20] MEDS ORDERED: diphenhydrAMINE 25mg capsule PO PRN (01:30)
[2021-07-20] MEDS ORDERED: magnesium hydroxide 30ml (MOM) UD suspension PO PRN (01:30)
[2021-07-20] MEDS ORDERED: ondansetron 4mg rapidly disintigrating tab PO PRN (01:30)
[2021-07-20] MEDS ORDERED: HYDROcodone/acetaminophen 5mg/325mg tablet PO PRN (01:30)
[2021-07-20] MEDS ORDERED: bisacodyl 10mg suppository rectal RC PRN (01:30)
[2021-07-20] MEDS ORDERED: SODI650T29 PO (01:50)
[2021-07-20] MEDS ORDERED: DESL5TAB45 PO (01:50)
[2021-07-20] MEDS ORDERED: IBUP-1986 PO (01:50)
[2021-07-20] MEDS: morphine 2 MG/ML inj. syringe IV PRN ×3 (02:00→13:30)
[2021-07-20] MEDS ORDERED: HYDROcodone/acetaminophen 10/325mg tab PO PRN (02:05)
[2021-07-20] MEDS ORDERED: LORazepam 1 MG tablet PO PRN (02:05)
[2021-07-20] MEDS: normal saline 1000ml 1,000 ML IV SCH ×2 (02:06→14:11)
[2021-07-20] MEDS: HYDROcodone/acetaminophen 10/325mg tab PO PRN ×4 (05:09→22:10)
--- NOTE | 2021-07-20 06:35 | NUR ---
ASSUMED CARE. PT SHOWS NO S/S OF ACUTE DISTRESS. BED LOCKED AND LOW, CALL LIGHT IN REACH.
[2021-07-20 07:32] LABS: PARTIAL THROMBOPLASTIN TIME 24 SECONDS (22-32)
[2021-07-20] MEDS: amLODIPine 5mg tablet PO SCH (07:37)
[2021-07-20] MEDS: lisinopril 20mg tablet PO SCH (07:38)
[2021-07-20] MEDS: atorvastatin 20mg tablet PO SCH (07:38)
[2021-07-20] MEDS: docusate sod 100mg capsule PO SCH ×2 (07:38→19:10)
[2021-07-20] MEDS: loratadine 10mg tablet PO SCH (07:38)
[2021-07-20] MEDS: pantoprazole 40mg Tablet.DR PO SCH (07:39)
[2021-07-20] MEDS: heparin, porcine 5000 units/ml vial SQ SCH ×2 (07:39→17:14)
[2021-07-20] MEDS: CefTRIAXone/D5W-Rocephin 1gm 50 ML IV SCH ×2 (07:40→19:38)
[2021-07-20] MEDS: DIROXIMEL FUMARATE 231 MG PO SCH ×2 (08:00→20:00)
[2021-07-20 08:13] LABS: MAGNESIUM 2.2 MG/DL (1.5-2.4)
--- NOTE | 2021-07-20 12:00 | NUR ---
Patient in room ZHOU 357. I have received report from Oswaldo SALAZAR and had the opportunity to ask questions and assume patient care.
[2021-07-20 13:47] VITALS: BP 139/94
[2021-07-20] MEDS: ondansetron/PF 4mg/2ml inj IV PRN ×2 (13:58→20:01)
--- NOTE | 2021-07-20 16:46 | NUR ---
as clinical instructor, i reviewed student documentation
--- NOTE | 2021-07-20 17:48 | NUR ---
Problems reprioritized. Patient report given, questions answered & plan of care reviewed with Oswaldo SALAZAR.
--- NOTE | 2021-07-20 18:30 | NUR ---
Patient in room ZHOU 357. I have received report from MARTIN Chacon and had the opportunity to ask questions and assume patient care with student Addi. Addendum: 07/21/21 at 0010 by Kojo Lobo RN Amended: Links added.
[2021-07-20] MEDS: lactobacillus rhamnosus 10,000 MMU CELLS/CAPSULE PO SCH (19:10)
[2021-07-20 20:00] VITALS: BP 149/95
[2021-07-20] MEDS ORDERED: temazepam 15mg capsule PO PRN (21:00)
--- NOTE | 2021-07-20 22:45 | NUR ---
Student documentation: I have reviewed and agree with all interventions, assessments performed and documented by Addendum: 07/21/21 at 0015 by Kojo Lobo RN Amended: Links added.
[2021-07-20] MEDS ORDERED: calcium carbonate 500mg chew tablet PO PRN (23:15)
[2021-07-21] VITALS: BP 147/90
[2021-07-21] MEDS: heparin, porcine 5000 units/ml vial SQ SCH ×2 (00:37→08:03)
[2021-07-21] MEDS: normal saline 1000ml 1,000 ML IV SCH ×2 (00:38→08:06)
[2021-07-21] MEDS: ondansetron/PF 4mg/2ml inj IV PRN (04:32)
[2021-07-21] MEDS: HYDROcodone/acetaminophen 10/325mg tab PO PRN ×2 (04:32→13:30)
--- NOTE | 2021-07-21 06:33 | NUR ---
Problems reprioritized. Patient report given, questions answered & plan of care reviewed with Almaz SALAZAR.
[2021-07-21 07:00] VITALS: BP 154/99
--- NOTE | 2021-07-21 07:55 | NUR ---
PAGER ID: [phone] MESSAGE: Carmina Norton [phone] Pt. would like regular food please. She is on a CL diet and we don't know why. Kathleen [phone]
[2021-07-21] MEDS: docusate sod 100mg capsule PO SCH (08:00)
[2021-07-21] MEDS: DIROXIMEL FUMARATE 231 MG PO SCH (08:00)
[2021-07-21] MEDS: atorvastatin 20mg tablet PO SCH (08:00)
[2021-07-21] MEDS: lactobacillus rhamnosus 10,000 MMU CELLS/CAPSULE PO SCH (08:00)
[2021-07-21] MEDS: pantoprazole 40mg Tablet.DR PO SCH (08:00)
[2021-07-21] MEDS: amLODIPine 5mg tablet PO SCH (08:01)
[2021-07-21] MEDS: loratadine 10mg tablet PO SCH (08:01)
[2021-07-21] MEDS: lisinopril 20mg tablet PO SCH (08:02)
[2021-07-21] MEDS: CefTRIAXone/D5W-Rocephin 1gm 50 ML IV SCH (08:05)
[2021-07-21] MEDS ORDERED: LEVO500T90 PO ×2 (09:33)
--- NOTE | 2021-07-21 09:50 | NUR ---
CALLED [facility] OFFICE. aSKED FOR [facility]KE [place] OR JAKY. WAS INFORMED MD WITH PT. AND WOULD CALL ME BACK. THE OFFICE IS AWARE THAT DISCHARGE PENDING ON DIANA CONFIRMATION. PT ALSO STATES HER MOTHER/ RIDE CAN NOT PICK HER UP UNTIL 1230PM TODAY.
--- NOTE | 2021-07-21 10:38 | NUR ---
JAKY CALLED BACK. OKED DISCHARGE.
--- NOTE | 2021-07-21 11:18 | NUR ---
PAGER ID: [phone] MESSAGE: Genny Grewal 357O Can you please prescribe a antibiotic for discharge that the pt. is not allergic to. Thank you. Kathleen [phone]
[2021-07-21 11:20] VITALS: BP 142/80
[2021-07-21] MEDS ORDERED: AMOX-117 PO (13:02)
--- NOTE | 2021-07-21 13:12 | NUR ---
Called pharmacy [facility] to verify pt's Levaquin order canceled and new prescription e-scripted. Will proceed with discharge.
--- NOTE | 2021-07-21 13:17 | NUR ---
DISCHARGE NOTE: Reviewed discharge paperwork with pt. She had an opportunity to ask questions. IV DC'd, cannula intact, no s/sx bleeding noted. Reviewed discharge medications. Pt. can take prescribed antibiotic. Pt. calling her mother to give her a ride home. She has an appointment with John 08/31/21 for lithotripsy which she will keep and she will follow up with him. She takes pain medication at home already. Pt. has gather all of her belongings to take home with her.
== END 2021-07-21 13:45 | disposition home or self-care (01) | DRG 690 ==
LOC: ER 19:50 → UNDOADMIN 07-20 01:33 → ED HOLD 07-20 01:33 → EDBEDREQSVC 07-20 13:05 → ED HOLD 07-20 13:48 → SUR 3N 07-20 13:48
PROVIDERS: ADMIT Family Medicine; ATTEND Internal Medicine
DX: N13.6 Pyonephrosis (principal); Z68.42 Body mass index [BMI] 45.0-49.9, adult; G35 Multiple sclerosis; B96.20 Unspecified Escherichia coli [E. coli] as the cause of diseases classified elsewhere; E66.01 Morbid (severe) obesity due to excess calories; E78.5 Hyperlipidemia, unspecified; F41.9 Anxiety disorder, unspecified; R31.9 Hematuria, unspecified; I10 Essential (primary) hypertension; Z79.899 Other long term (current) drug therapy; Z85.72 Personal history of non-Hodgkin lymphomas; Z86.73 Personal history of transient ischemic attack (TIA), and cerebral infarction without residual deficits; Z87.442 Personal history of urinary calculi; Z87.891 Personal history of nicotine dependence; Z90.49 Acquired absence of other specified parts of digestive tract; Z88.8 Allergy status to other drugs, medicaments and biological substances; Z91.041 Radiographic dye allergy status; Z98.51 Tubal ligation status; Z56.0 Unemployment, unspecified
CPT/HCPCS: 36415; 74176; 80053; 81001; 83605; 83735; 83880; 84100; 84145; 85025; 85610; 85730; 87040; 87077; 87088; 87186; 99285; G0378; J0696; J1644; J1885; J2270; J2405; J7030

== ENCOUNTER 2021-08-25 18:06 | Emergency (ER) | payer MEDICARE, MEDICAID ==
[~2021-08-25] VITALS: Ht 160 cm; Wt 127.3 kg
[~2021-08-25 18:06] MED LIST changes: -CIPR-259 PO; +DESL5TAB45 PO; -HYDR25TA4 PO; +IBUP-1986 PO; +SODI650T29 PO
[2021-08-25] MEDS ORDERED: acetaminophen 325mg tablet PO STA (18:23)
--- NOTE | 2021-08-25 18:36 | NUR ---
ULTRASOUND PAGED AT [phone]
[2021-08-25 19:23] VITALS: BP 152/100
[2021-08-25] MEDS ORDERED: normal saline 1000ml 1,000 ML IV ONE ×2 (19:50)
[2021-08-25 20:05] LABS: BASOPHILS % (AUTO) 0.3 % (0-1); EOSINOPHILS # (AUTO) 0.1 X10'3 (0-0.9); EOSINOPHILS % (AUTO) 0.8 % (0-6); HEMATOCRIT 42.6 % (35.0-45.0); HEMOGLOBIN 14.6 g/dl (12.0-16.0); LYMPHOCYTES # (AUTO) 0.4 X10'3 (1.1-4.8); LYMPHOCYTES % (AUTO) 5.7 % (21-51); MEAN CORPUSCULAR HEMOGLOBIN 29.7 PG (27.0-31.0); MEAN CORPUSCULAR HGB CONC 34.2 g/dL (33.0-36.5); MEAN CORPUSCULAR VOLUME 86.8 FL (78-98); MEAN PLATELET VOLUME 9.8 FL (7.4-10.4); MONOCYTES # (AUTO) 0.3 X10'3 (0-0.9); MONOCYTES % (AUTO) 4.9 % (2-12); NEUTROPHILS # (AUTO) 6.2 X10'3 (1.8-7.7); NEUTROPHILS % (AUTO) 88.3 % (42-75); PLATELET COUNT 241 X10'3 (140-440); RED BLOOD COUNT 4.91 X10'6 (4.20-5.60); RED CELL DISTRIBUTION WIDTH 14.1 % (11.5-14.5)
[2021-08-25 20:17] LABS: ALANINE AMINOTRANSFERASE 40 U/L (12-78); ALBUMIN 3.7 G/DL (3.4-5.0); ALKALINE PHOSPHATASE 124 IU/L (46-116); ANION GAP 11 (8-16); ASPARTATE AMINO TRANSFERASE 25 U/L (10-37); BILIRUBIN,TOTAL 0.4 MG/DL (0.1-1.0); BLOOD UREA NITROGEN 21 MG/DL (7-18); BUN/CREATININE RATIO 25.3 (6.6-38.0); CHLORIDE 104 MMOL/L (99-107); CREATININE 0.83 MG/DL (0.40-0.90); GLUCOSE 132 MG/DL (70-104); POTASSIUM 3.8 MMOL/L (3.5-5.1); SODIUM 140 MMOL/L (135-145); TOTAL CARBON DIOXIDE 24.6 MMOL/L (24-32); TOTAL PROTEIN 7.5 G/DL (6.4-8.2); eGFR 72 ML/MIN
[2021-08-25] MEDS ORDERED: ondansetron/PF 4mg/2ml inj IV ONE ×2 (20:30→20:55)
[2021-08-25] MEDS ORDERED: ketorolac trometh. 30mg/ml inj. IV ONE (20:30)
[2021-08-25] MEDS ORDERED: morphine 4 MG/ML inj SYRINge IV ONE ×2 (20:30→20:55)
[2021-08-25 21:43] LABS: CLARITY,URINE CLOUDY (Clear); COLOR,URINE YELLOW (Yellow); GLUCOSE, URINE NEGATIVE (Neg); KETONES,URINE NEGATIVE (Neg); LEUKOCYTE ESTERASE ,URINE SMALL (Neg); NITRITES, URINE NEGATIVE (Neg); OCCULT BLOOD,URINE LARGE (Neg); PH,URINE 5.5 (4.8-8.0); PROTEIN,URINE 30 mg/dl (Neg); UROBILINOGEN,URINE 0.2 E.U/dL (0.2-1.0)
[2021-08-25 21:48] LABS: UA COLLECTION TYPE VOIDED
[2021-08-25 21:50] LABS: SQUAMOUS EPITHELIAL CELL,UR MODERATE /LPF (FEW)
[2021-08-25 21:51] LABS: MUCUS STRANDS MODERATE /LPF (Neg)
[2021-08-25 21:52] LABS: RBC,URINE 20-50 /HPF (0-2)
[2021-08-25 21:53] LABS: BACTERIA,URINE 1+ /HPF (Neg)
[2021-08-25 21:54] LABS: RENAL CELLS, URINE FEW /HPF
[2021-08-25 21:55] LABS: TRANSITIONAL EPI CELLS,URINE FEW /HPF
[2021-08-25 22:03] LABS: CAL OXALATE CRYSTALS FEW /HPF (NEGATIVE)
== END 2021-08-25 21:39 | disposition home or self-care (01) ==
LOC: ER 18:07
DX: R10.32 Left lower quadrant pain (principal); R11.2 Nausea with vomiting, unspecified; M54.50 Low back pain, unspecified; R31.9 Hematuria, unspecified; I10 Essential (primary) hypertension; Z86.73 Personal history of transient ischemic attack (TIA), and cerebral infarction without residual deficits; Z87.442 Personal history of urinary calculi; Z87.440 Personal history of urinary (tract) infections; Z90.89 Acquired absence of other organs; Z98.51 Tubal ligation status; Z56.0 Unemployment, unspecified; Z88.1 Allergy status to other antibiotic agents; Z88.8 Allergy status to other drugs, medicaments and biological substances; Z79.899 Other long term (current) drug therapy
CPT/HCPCS: 36415; 76770; 80053; 81001; 83605; 84145; 85025; 87040; 87088; 96361; 96374; 96375; 96376; 99284; J1885; J2270; J2405; J7030

== ENCOUNTER 2021-09-18 08:54 | Day surgery (SDC) | payer MEDICARE, MEDICAID ==
[2021-09-14 10:33] LABS: BASOPHILS % (AUTO) 0.6 % (0-1); EOSINOPHILS # (AUTO) 0.1 X10'3 (0-0.9); EOSINOPHILS % (AUTO) 1.3 % (0-6); LYMPHOCYTES # (AUTO) 0.6 X10'3 (1.1-4.8); LYMPHOCYTES % (AUTO) 9.1 % (21-51); MEAN CORPUSCULAR HEMOGLOBIN 29.7 PG (27.0-31.0); MEAN CORPUSCULAR VOLUME 87.4 FL (78-98); MEAN PLATELET VOLUME 8.9 FL (7.4-10.4); MONOCYTES # (AUTO) 0.5 X10'3 (0-0.9); MONOCYTES % (AUTO) 7.9 % (2-12); NEUTROPHILS # (AUTO) 5.5 X10'3 (1.8-7.7); NEUTROPHILS % (AUTO) 81.1 % (42-75); PRE OP HEMATOCRIT 39.3 % (35.0-45.0); PRE OP HEMOGLOBIN 13.4 g/dL (12.0-16.0); PRE OP PLATELET COUNT 245 X10'3 (140-440); RED CELL DISTRIBUTION WIDTH 14.6 % (11.5-14.5)
[2021-09-14 10:48] LABS: ALBUMIN 3.6 G/DL (3.4-5.0); ALBUMIN/GLOBULIN RATIO 0.9 (1.1-1.5); ALKALINE PHOSPHATASE 124 IU/L (46-116); BLOOD UREA NITROGEN 14 MG/DL (7-18); BUN/CREATININE RATIO 18.2 (6.6-38.0); CALCIUM 9.7 MG/DL (8.5-10.1); CHLORIDE 106 MMOL/L (99-107); CREATININE 0.77 MG/DL (0.40-0.90); PRE OP ALT 48 U/L (30-65); PRE OP ANION GAP 11 (8-16); PRE OP AST 27 U/L (10-37); PRE OP BILIRUB, TOTAL 0.3 MG/DL (0.0-1.0); PRE OP GLUCOSE 122 MG/DL (70-104); PRE OP POTASSIUM 3.5 MMOL/L (3.4-5.1); PRE OP SODIUM 141 MMOL/L (135-145); TOTAL CARBON DIOXIDE 23.6 MMOL/L (24-32); TOTAL PROTEIN 7.6 G/DL (6.4-8.2); eGFR 78 ML/MIN
[2021-09-18] VITALS (14 sets, daily range): BP systolic 128–157; BP diastolic 74–99
[~2021-09-18] VITALS: Ht 160 cm; Wt 124.0 kg
[~2021-09-18 08:54] MED LIST changes: +CHOL500050 PO; -DESL5TAB45 PO; -SODI650T29 PO; +cefazolin/dext.iso 2gm/50ml IV ONE; +famotidine 20mg tablet PO ONE; +ringers solution, lacted 1,000 ML IV SCH; +sevoflurane 250ml liquid IH ONE
[2021-09-18] MEDS ORDERED: ceFAZolin/D5W- 1GM premix 50 ML IV ONE (10:10)
[2021-09-18] MEDS ORDERED: midazolam 1 mg/ML 2ml injection ONE (10:44)
[2021-09-18] MEDS ORDERED: fentaNYL/PF 50MCG/1 ML 2ML syringe ONE (10:54)
[2021-09-18] MEDS ORDERED: propofol inj 20 ML IV ONE (10:54)
[2021-09-18] MEDS ORDERED: iohexol 300 MG/1 ML 50ml polymer ONE (11:33)
[2021-09-18] MEDS ORDERED: rocuronium 10mg/ml inj IV ONE (12:55)
[2021-09-18] MEDS ORDERED: neostigmine methylsulfate 1 MG/ML 10ml vial ONE (12:55)
[2021-09-18] MEDS ORDERED: glycopyrrolate 0.2mg/ml inj ONE (12:55)
[2021-09-18] MEDS ORDERED: ringers solution, lacted 1,000 ML IV SCH (13:05)
[2021-09-18] MEDS ORDERED: proCHLORperazine 10 MG/2 ml inj IV PRN (13:05)
[2021-09-18] MEDS ORDERED: morphine 4 MG/ML inj SYRINge IV PRN (13:05)
[2021-09-18] MEDS ORDERED: ondansetron/PF 4mg/2ml inj IV PRN (13:05)
[2021-09-18] MEDS ORDERED: morphine 2 MG/ML inj. syringe IV PRN (13:05)
[2021-09-18] MEDS ORDERED: meperidine/PF 25mg/ml syringe IV PRN ×3 (13:05)
--- NOTE | 2021-09-18 14:15 | NUR ---
PT ATTEMPTED TO VOID STATES SHE FEEL LIKE SHE CANT GO. PER DR STARKEY I&O CATH FOR 600 ML. PT STATES RELIEF Addendum: 09/18/21 at 1637 by Na Gee RN Amended: Links added.
--- NOTE | 2021-09-18 15:49 | NUR ---
PT DC TO HOME WITH GRANDMOTHER. PT VERBAL UNDERSTANDING OF DC INSTRUCTIONS. PT GIVEN PRINTED INSTRUCTIONS. RX FOR SEPTRA DS 1 PO BID # 14 CALLED INTO [facility] PER DR ORTIZ PRINTED DC INSTRUCTIONS. ALL QUESTIONS ASKED AND ANSWERED. PT DC VIA WC TO HOME WITH GRANDMOTHER Addendum: 09/18/21 at 1637 by Na Gee RN Amended: Links added.
== END 2021-09-18 15:49 | disposition home or self-care (01) ==
LOC: PAS 08:54
PROVIDERS: ATTEND Urology
DX: N20.0 Calculus of kidney (principal)
CPT/HCPCS: 36415; 52356; 80053; 82948; 85025; C1758; C1769; C2617; J0690; J2175; J2250; J2704; J2710; J3010; J3490; J7030; J7120; Q9967; U0003; U0005; Z7506; Z7508; Z7512; 76000; 88300; A4618; A7000; C1894

== ENCOUNTER 2021-10-04 10:55 | Inpatient (IN) | payer MEDICARE, MEDICAID ==
[~2021-10-04] VITALS: Ht 160 cm; Wt 125.0 kg
[~2021-10-04 10:55] MED LIST changes: -cefazolin/dext.iso 2gm/50ml IV ONE; -famotidine 20mg tablet PO ONE; -ringers solution, lacted 1,000 ML IV SCH; -sevoflurane 250ml liquid IH ONE
[2021-10-04 11:20] LABS: URINE HCG NEGATIVE (NEG)
[2021-10-04 11:22] LABS: CLARITY,URINE CLOUDY (Clear); GLUCOSE, URINE NEGATIVE (Neg); KETONES,URINE NEGATIVE (Neg); LEUKOCYTE ESTERASE ,URINE LARGE (Neg); NITRITES, URINE NEGATIVE (Neg); OCCULT BLOOD,URINE SMALL (Neg); PROTEIN,URINE TRACE mg/dl (Neg); UROBILINOGEN,URINE 0.2 E.U/dL (0.2-1.0)
[2021-10-04 11:23] LABS: COLOR,URINE STRAW (Yellow); UA COLLECTION TYPE CLN CATCH MIDSTREAM
[2021-10-04 11:32] LABS: BASOPHILS # (AUTO) 0.1 X10'3 (0-0.2); BASOPHILS % (AUTO) 0.8 % (0-1); EOSINOPHILS % (AUTO) 0.4 % (0-6); HEMATOCRIT 40.1 % (35.0-45.0); HEMOGLOBIN 13.8 g/dl (12.0-16.0); LYMPHOCYTES # (AUTO) 0.8 X10'3 (1.1-4.8); LYMPHOCYTES % (AUTO) 9.3 % (21-51); MEAN CORPUSCULAR HEMOGLOBIN 29.7 PG (27.0-31.0); MEAN CORPUSCULAR HGB CONC 34.4 g/dL (33.0-36.5); MEAN CORPUSCULAR VOLUME 86.5 FL (78-98); MEAN PLATELET VOLUME 8.5 FL (7.4-10.4); MONOCYTES # (AUTO) 0.9 X10'3 (0-0.9); MONOCYTES % (AUTO) 10.3 % (2-12); NEUTROPHILS # (AUTO) 7.1 X10'3 (1.8-7.7); NEUTROPHILS % (AUTO) 79.2 % (42-75); PLATELET COUNT 288 X10'3 (140-440); RED BLOOD COUNT 4.63 X10'6 (4.20-5.60); RED CELL DISTRIBUTION WIDTH 14.7 % (11.5-14.5)
[2021-10-04 11:37] LABS: BACTERIA,URINE 3+ /HPF (Neg); MUCUS STRANDS NONE SEEN /LPF (Neg); SQUAMOUS EPITHELIAL CELL,UR FEW /LPF (FEW); WBC CLUMPS,URINE MODERATE /HPF (NEGATIVE); WBC,URINE TNTC /HPF (0-4)
[2021-10-04 11:46] LABS: ALANINE AMINOTRANSFERASE 42 U/L (12-78); ALBUMIN 3.2 G/DL (3.4-5.0); ALBUMIN/GLOBULIN RATIO 0.6 (1.1-1.5); ALKALINE PHOSPHATASE 126 IU/L (46-116); ANION GAP 11 (8-16); ASPARTATE AMINO TRANSFERASE 27 U/L (10-37); BILIRUBIN,TOTAL 0.2 MG/DL (0.1-1.0); BLOOD UREA NITROGEN 15 MG/DL (7-18); BUN/CREATININE RATIO 18.5 (6.6-38.0); CHLORIDE 102 MMOL/L (99-107); CREATININE 0.81 MG/DL (0.40-0.90); GLUCOSE 127 MG/DL (70-104); LIPASE 95 U/L (73-393); POTASSIUM 4.1 MMOL/L (3.5-5.1); SODIUM 138 MMOL/L (135-145); TOTAL CARBON DIOXIDE 25.1 MMOL/L (24-32); TOTAL PROTEIN 8.3 G/DL (6.4-8.2); eGFR 74 ML/MIN
[2021-10-04] MEDS ORDERED: morphine 4 MG/ML inj SYRINge IV ONE ×2 (12:45→15:45)
[2021-10-04] MEDS ORDERED: normal saline 1000ML IV soln IVB ONE (12:45)
[2021-10-04] MEDS ORDERED: ondansetron/PF 4mg/2ml inj IV ONE (13:00)
--- NOTE | 2021-10-04 13:00 | NUR ---
pt reports nausea. received order for zofran 4mg iv x1 now from [facility]. order placed as received
--- NOTE | 2021-10-04 13:16 | NUR ---
pt daughter shakira [phone]
[2021-10-04] MEDS ORDERED: CefTRIAXone/D5W-Rocephin 1gm 50 ML IV ONE (15:05)
[2021-10-04 15:35] LABS: C-REACTIVE PROTEIN 4.56 MG/DL (0.0-0.5)
[2021-10-04] MEDS ORDERED: LORazepam 1 MG tablet PO PRN (15:55)
[2021-10-04] MEDS ORDERED: magnesium 4gm in 100ml NS 100 ML IV PRN (16:00)
[2021-10-04] MEDS ORDERED: potassium CL 10mEq/100ml bag 100 ML IV PRN (16:00)
[2021-10-04] MEDS ORDERED: acetaminophen 650mg rectal suppository RC PRN (16:00)
[2021-10-04] MEDS ORDERED: diphenhydrAMINE 25mg capsule PO PRN (16:00)
[2021-10-04] MEDS ORDERED: magnesium Cl slow-release 64mg tablet PO PRN (16:00)
[2021-10-04] MEDS ORDERED: bisacodyl 10mg suppository rectal RC PRN (16:00)
[2021-10-04] MEDS ORDERED: potassium Cl 20 mEq SR tablet PO PRN ×2 (16:00)
[2021-10-04] MEDS ORDERED: ondansetron/PF 4mg/2ml inj IV PRN (16:00)
[2021-10-04] MEDS ORDERED: magnesium 2GM in 50ml NS 50 ML IV PRN (16:00)
[2021-10-04] MEDS ORDERED: acetaminophen 325mg tablet PO PRN ×2 (16:00)
[2021-10-04] MEDS ORDERED: mag hydrox/Alum hydrox/simeth 30ml oral suspension PO PRN (16:00)
[2021-10-04] MEDS ORDERED: magnesium hydroxide 30ml (MOM) UD suspension PO PRN (16:00)
[2021-10-04 16:23] LABS: APTT 26 SECONDS (22-32); D-DIMER 0.93 MG/L FEU (0-0.50)
[2021-10-04 16:32] LABS: HEMOGLOBIN A1C 6.2 % (4.5-6.2)
[2021-10-04 18:00] VITALS: BP 158/95
[2021-10-04] MEDS: normal saline 1000ml 1,000 ML IV SCH ×2 (18:15→23:52)
[2021-10-04] MEDS: docusate sod 100mg capsule PO SCH (19:34)
[2021-10-04] MEDS: heparin, porcine 5000 units/ml vial SQ SCH (19:34)
[2021-10-04] MEDS: K and/or MAG REPLACEMENT MC SCH (19:36)
[2021-10-04] MEDS: HYDROcodone/acetaminophen 10/325mg tab PO PRN (19:41)
[2021-10-04 22:00] VITALS: BP 158/85
[2021-10-04] MEDS: HYDROcodone/acetaminophen 5mg/325mg tablet PO PRN (23:52)
[2021-10-05] VITALS (19 sets, daily range): BP systolic 102–173; BP diastolic 68–101
[2021-10-05] MEDS: HYDROcodone/acetaminophen 10/325mg tab PO PRN ×2 (05:52→10:31)
[2021-10-05] MEDS ORDERED: non-formulary drug (Lisinopril* 1 TAB) PO SCH (08:00)
[2021-10-05] MEDS: K and/or MAG REPLACEMENT MC SCH ×2 (08:00→20:00)
[2021-10-05] MEDS ORDERED: non-formulary drug (Atorvastatin Calcium 1 TAB) PO SCH (08:00)
[2021-10-05] MEDS ORDERED: non-formulary drug (Amlodipine Besylate 1 TAB) PO SCH (08:00)
[2021-10-05] MEDS: docusate sod 100mg capsule PO SCH ×2 (08:07→20:00)
[2021-10-05] MEDS: cholecalciferol (vitamin D3) 1,000 unit (25mcg) tablet PO SCH (08:07)
[2021-10-05] MEDS: amLODIPine 5mg tablet PO SCH (08:07)
[2021-10-05] MEDS: atorvastatin 20mg tablet PO SCH (08:07)
[2021-10-05] MEDS: lisinopril 20mg tablet PO SCH (08:08)
[2021-10-05] MEDS: heparin, porcine 5000 units/ml vial SQ SCH ×2 (08:08→18:56)
[2021-10-05] MEDS: CefTRIAXone/D5W-Rocephin 1gm 50 ML IV SCH (08:08)
[2021-10-05] MEDS: morphine 2 MG/ML inj. syringe IV PRN ×2 (08:21→21:47)
[2021-10-05] MEDS: normal saline 1000ml 1,000 ML IV SCH ×2 (08:22→16:00)
[2021-10-05 10:31] LABS: D-DIMER 0.67 MG/L FEU (0-0.50)
[2021-10-05 10:33] LABS: BASOPHILS % (AUTO) 0.4 % (0-1); EOSINOPHILS % (AUTO) 0.4 % (0-6); HEMOGLOBIN 12.2 g/dl (12.0-16.0); LYMPHOCYTES # (AUTO) 0.8 X10'3 (1.1-4.8); LYMPHOCYTES % (AUTO) 15.1 % (21-51); MEAN CORPUSCULAR HEMOGLOBIN 29.5 PG (27.0-31.0); MEAN CORPUSCULAR HGB CONC 33.9 g/dL (33.0-36.5); MEAN CORPUSCULAR VOLUME 87.1 FL (78-98); MEAN PLATELET VOLUME 8.7 FL (7.4-10.4); MONOCYTES # (AUTO) 0.5 X10'3 (0-0.9); MONOCYTES % (AUTO) 10.1 % (2-12); PLATELET COUNT 212 X10'3 (140-440); RED BLOOD COUNT 4.14 X10'6 (4.20-5.60); RED CELL DISTRIBUTION WIDTH 14.3 % (11.5-14.5); WHITE BLOOD COUNT 5.3 X10'3 (4.5-11.0)
[2021-10-05 11:00] LABS: ALANINE AMINOTRANSFERASE 38 U/L (12-78); ALBUMIN 2.7 G/DL (3.4-5.0); ALBUMIN/GLOBULIN RATIO 0.7 (1.1-1.5); ALKALINE PHOSPHATASE 111 IU/L (46-116); ANION GAP 8 (8-16); ASPARTATE AMINO TRANSFERASE 25 U/L (10-37); BILIRUBIN,TOTAL 0.2 MG/DL (0.1-1.0); BLOOD UREA NITROGEN 11 MG/DL (7-18); BUN/CREATININE RATIO 14.9 (6.6-38.0); C-REACTIVE PROTEIN 14.87 MG/DL (0.0-0.5); CALCIUM 9.4 MG/DL (8.5-10.1); CHLORIDE 103 MMOL/L (99-107); CHOL/HDL RATIO 5.6 (0.00-4.99); CHOLESTEROL 197 MG/DL (0-200); CREATININE 0.74 MG/DL (0.40-0.90); GLUCOSE 172 MG/DL (70-104); HDL CHOLESTEROL 35 MG/DL (35-60); LACTATE DEHYDROGENASE 192 U/L (81-234); LDL CHOLESTEROL 111 MG/DL (50-100); MAGNESIUM 1.9 MG/DL (1.5-2.4); PHOSPHORUS 2.8 MG/DL (2.3-4.5); POTASSIUM 3.8 MMOL/L (3.5-5.1); SODIUM 138 MMOL/L (135-145); TOTAL CARBON DIOXIDE 26.8 MMOL/L (24-32); TOTAL PROTEIN 6.6 G/DL (6.4-8.2); TRIGLYCERIDES 209 MG/DL (20-135); eGFR 82 ML/MIN
[2021-10-05] MEDS ORDERED: morphine 4 MG/ML inj SYRINge IV PRN (12:55)
[2021-10-05] MEDS ORDERED: ondansetron/PF 4mg/2ml inj IV PRN (12:55)
[2021-10-05] MEDS ORDERED: hydrALAZINE 20mg/ml inj. IV PRN (12:55)
[2021-10-05] MEDS ORDERED: fentaNYL/PF 50MCG/1 ML 2ML syringe IV PRN ×2 (12:55)
[2021-10-05] MEDS ORDERED: labetalol 20mg/4ml (5mg/ml) syringe IV PRN (12:55)
[2021-10-05] MEDS ORDERED: albumin (Human) 5% 250ml 250 ML IV ONE ×2 (12:55→14:31)
[2021-10-05] MEDS ORDERED: morphine 2 MG/ML inj. syringe IV PRN (12:55)
[2021-10-05] MEDS ORDERED: ringers solution, lacted 1,000 ML IV SCH (12:55)
[2021-10-05] MEDS ORDERED: ePHEDrine 50MG/ML INJ. ONE (12:56)
[2021-10-05] MEDS ORDERED: iohexol 300 MG/1 ML 50ml polymer ONE (13:17)
--- NOTE | 2021-10-05 13:55 | NUR ---
PT TRANSPORTED TO OR.
[2021-10-05] MEDS ORDERED: MIDAZolam 1mg/ml 10ml vial ONE (13:59)
[2021-10-05] MEDS ORDERED: fentaNYL/PF 50MCG/1 ML 2ML syringe ONE (14:00)
--- NOTE | 2021-10-05 15:25 | NUR ---
report received from anesthesia, pt is sleepy and cold, crystal hugger applied, vital signs stable, o2 via face mask at 8 ltr, pts block is thigh high at this time.
--- NOTE | 2021-10-05 16:09 | NUR ---
REPORT FROM SUPERVISOR PACKING ROOM RECEIVED. PT IS NOW S/P LEFT URETEROSCOPIC STONE REMOVAL AND LEFT URETRAL STENT PLACEMENT. AWAITING TRANSFER TO ROOM.
--- NOTE | 2021-10-05 16:25 | NUR ---
Report called to receiving nurse Gage SALAZAR. Transferred via bed on 3 ltr oxygen via nasal cannula, no belongings. Receiving RN at bedside to receive pt, bed in low locked position, side rails up and call light given to pt. Special Issues communicated to receiving nurse. yes
--- NOTE | 2021-10-05 16:46 | NUR ---
PT RETURNED FROM OR, A/O X4,DROWSY, LUNGS CTAB, 3 LTR O2, TITRATING TO OFF. JIMENEZ. NAD.
[2021-10-05] MEDS: lactobacillus rhamnosus 10,000 MMU CELLS/CAPSULE PO SCH (18:56)
[2021-10-05] MEDS: HYDROcodone/acetaminophen 5mg/325mg tablet PO PRN (18:56)
[2021-10-06] MEDS: HYDROcodone/acetaminophen 5mg/325mg tablet PO PRN (01:26)
[2021-10-06 02:00] VITALS: BP 149/87
[2021-10-06] MEDS: HYDROcodone/acetaminophen 10/325mg tab PO PRN ×2 (05:23→10:47)
[2021-10-06 06:27] VITALS: BP 138/86
--- NOTE | 2021-10-06 06:27 | NUR ---
Patient in room ORTHO 4023. I have received report from Kirsten SALAZAR and had the opportunity to ask questions and assume patient care.
--- NOTE | 2021-10-06 06:30 | NUR ---
Patient in room ORTHO 4023. I have received report from Kirsten SALAZAR and had the opportunity to ask questions and assume patient care.
[2021-10-06] MEDS: morphine 2 MG/ML inj. syringe IV PRN ×2 (07:12→13:58)
[2021-10-06] MEDS: CefTRIAXone/D5W-Rocephin 1gm 50 ML IV SCH (07:18)
[2021-10-06 07:42] LABS: BASOPHILS % (AUTO) 0.6 % (0-1); EOSINOPHILS # (AUTO) 0.1 X10'3 (0-0.9); EOSINOPHILS % (AUTO) 1.8 % (0-6); HEMATOCRIT 35.5 % (35.0-45.0); HEMOGLOBIN 12.1 g/dl (12.0-16.0); LYMPHOCYTES # (AUTO) 0.9 X10'3 (1.1-4.8); LYMPHOCYTES % (AUTO) 18.1 % (21-51); MEAN CORPUSCULAR HEMOGLOBIN 29.6 PG (27.0-31.0); MEAN CORPUSCULAR HGB CONC 34.2 g/dL (33.0-36.5); MEAN CORPUSCULAR VOLUME 86.6 FL (78-98); MEAN PLATELET VOLUME 9.1 FL (7.4-10.4); MONOCYTES # (AUTO) 0.5 X10'3 (0-0.9); MONOCYTES % (AUTO) 11.6 % (2-12); NEUTROPHILS # (AUTO) 3.2 X10'3 (1.8-7.7); NEUTROPHILS % (AUTO) 67.9 % (42-75); PLATELET COUNT 202 X10'3 (140-440); RED CELL DISTRIBUTION WIDTH 14.3 % (11.5-14.5); WHITE BLOOD COUNT 4.7 X10'3 (4.5-11.0)
[2021-10-06] MEDS: normal saline 1000ml 1,000 ML IV SCH ×2 (08:00)
[2021-10-06] MEDS: K and/or MAG REPLACEMENT MC SCH (08:00)
[2021-10-06 08:03] LABS: ALANINE AMINOTRANSFERASE 53 U/L (12-78); ALBUMIN 2.9 G/DL (3.4-5.0); ALBUMIN/GLOBULIN RATIO 0.7 (1.1-1.5); ALKALINE PHOSPHATASE 101 IU/L (46-116); ANION GAP 10 (8-16); ASPARTATE AMINO TRANSFERASE 40 U/L (10-37); BILIRUBIN,TOTAL 0.2 MG/DL (0.1-1.0); BLOOD UREA NITROGEN 14 MG/DL (7-18); BUN/CREATININE RATIO 20.3 (6.6-38.0); C-REACTIVE PROTEIN 13.25 MG/DL (0.0-0.5); CALCIUM 9.5 MG/DL (8.5-10.1); CHLORIDE 105 MMOL/L (99-107); CREATININE 0.69 MG/DL (0.40-0.90); GLUCOSE 166 MG/DL (70-104); LACTATE DEHYDROGENASE 204 U/L (81-234); PHOSPHORUS 3.2 MG/DL (2.3-4.5); POTASSIUM 4.2 MMOL/L (3.5-5.1); SODIUM 141 MMOL/L (135-145); TOTAL CARBON DIOXIDE 26.1 MMOL/L (24-32); TOTAL PROTEIN 6.8 G/DL (6.4-8.2); eGFR 89 ML/MIN
[2021-10-06] MEDS: atorvastatin 20mg tablet PO SCH (08:45)
[2021-10-06] MEDS ORDERED: allopurinol 300 MG tablet PO SCH (08:45)
[2021-10-06] MEDS: docusate sod 100mg capsule PO SCH ×2 (08:45→08:56)
[2021-10-06] MEDS: cholecalciferol (vitamin D3) 1,000 unit (25mcg) tablet PO SCH (08:45)
[2021-10-06] MEDS: lactobacillus rhamnosus 10,000 MMU CELLS/CAPSULE PO SCH (08:45)
[2021-10-06] MEDS: heparin, porcine 5000 units/ml vial SQ SCH (08:46)
[2021-10-06] MEDS: amLODIPine 5mg tablet PO SCH (08:49)
[2021-10-06] MEDS: lisinopril 20mg tablet PO SCH (08:49)
[2021-10-06 09:19] LABS: D-DIMER 0.94 MG/L FEU (0-0.50)
[2021-10-06 10:31] VITALS: BP 132/86
[2021-10-06] MEDS ORDERED: LACT1CAP26 PO (13:54)
[2021-10-06] MEDS ORDERED: CIPR-202 PO (13:54)
[2021-10-06] MEDS ORDERED: ALLO300T8 PO (13:54)
[2021-10-06] MEDS ORDERED: ASPI-611 PO (14:05)
--- NOTE | 2021-10-06 16:14 | NUR ---
Patient discharged to home in stable condition via wheelchair. All DC instructions given to patient and she verbalized understanding and had no questions. 20 gauge piv removed from left AC cannula intact. Prescriptions were sent electronically to [facility].
[2021-10-07] MEDS ORDERED: allopurinol 300 MG tablet PO SCH (08:30)
== END 2021-10-06 15:30 | disposition home or self-care (01) | DRG 659 ==
LOC: ER 14:53 → ED HOLD 16:03 → ORTHO 4S 17:30
PROVIDERS: ADMIT Family Medicine; ATTEND Family Medicine
PROC: 0T778DZ Dilation of Left Ureter with Intraluminal Device, Via Natural or Artificial Opening Endoscopic (ICD-10-PCS; 2021-10-05)
PROC: BT1F1ZZ Fluoroscopy of Left Kidney, Ureter and Bladder using Low Osmolar Contrast (ICD-10-PCS; 2021-10-05)
PROC: 0TC18ZZ Extirpation of Matter from Left Kidney, Via Natural or Artificial Opening Endoscopic (ICD-10-PCS; principal; 2021-10-05 13:50)
DX: N13.6 Pyonephrosis (principal); U07.1 COVID-19; E87.2 Acidosis; Z68.42 Body mass index [BMI] 45.0-49.9, adult; E66.01 Morbid (severe) obesity due to excess calories; E78.5 Hyperlipidemia, unspecified; F41.9 Anxiety disorder, unspecified; R73.03 Prediabetes; G35 Multiple sclerosis; I10 Essential (primary) hypertension; Z78.9 Other specified health status; Z79.899 Other long term (current) drug therapy; Z85.72 Personal history of non-Hodgkin lymphomas; Z86.73 Personal history of transient ischemic attack (TIA), and cerebral infarction without residual deficits; Z87.442 Personal history of urinary calculi; Z87.891 Personal history of nicotine dependence; Z90.49 Acquired absence of other specified parts of digestive tract; Z98.51 Tubal ligation status; Z56.0 Unemployment, unspecified; Z88.8 Allergy status to other drugs, medicaments and biological substances; Z91.041 Radiographic dye allergy status; Z87.440 Personal history of urinary (tract) infections
CPT/HCPCS: 36415; 74176; 76000; 80053; 80061; 81001; 81025; 82948; 83036; 83605; 83615; 83690; 83735; 84100; 84145; 84443; 85025; 85379; 85610; 85730; 86140; 87040; 87077; 87081; 87088; 87186; 87635; 88300; 96361; 96365; 96375; 96376; 99285; A7000; C1758; C1769; C1894; C2617; C9803; G0378; J0696; J1644; J2250; J2270; J2405; J3010; J3490; J7030; P9045; Q9967

== ENCOUNTER 2021-10-19 03:06 | Inpatient (IN) | payer MEDICARE, MEDICAID ==
[~2021-10-19] VITALS: Ht 172.7 cm; Wt 116.5 kg
[~2021-10-19 03:06] MED LIST changes: +ALLO300T8 PO; +ASPI-611 PO; +CIPR-202 PO; -DIRO231C2 PO; -HYDR-3972 PO; +LACT1CAP26 PO
[2021-10-19 04:46] LABS: BASOPHILS # (AUTO) 0.1 X10'3 (0-0.2); BASOPHILS % (AUTO) 0.8 % (0-1); EOSINOPHILS # (AUTO) 0.1 X10'3 (0-0.9); EOSINOPHILS % (AUTO) 1.4 % (0-6); HEMATOCRIT 39.2 % (35.0-45.0); HEMOGLOBIN 13.2 g/dl (12.0-16.0); LYMPHOCYTES # (AUTO) 0.8 X10'3 (1.1-4.8); LYMPHOCYTES % (AUTO) 7.3 % (21-51); MEAN CORPUSCULAR HEMOGLOBIN 29.5 PG (27.0-31.0); MEAN CORPUSCULAR HGB CONC 33.8 g/dL (33.0-36.5); MEAN CORPUSCULAR VOLUME 87.3 FL (78-98); MEAN PLATELET VOLUME 11.2 FL (7.4-10.4); MONOCYTES # (AUTO) 0.8 X10'3 (0-0.9); MONOCYTES % (AUTO) 8.1 % (2-12); NEUTROPHILS # (AUTO) 8.5 X10'3 (1.8-7.7); NEUTROPHILS % (AUTO) 82.4 % (42-75); PLATELET COUNT 191 X10'3 (140-440); RED BLOOD COUNT 4.49 X10'6 (4.20-5.60); WHITE BLOOD COUNT 10.4 X10'3 (4.5-11.0)
--- NOTE | 2021-10-19 04:47 | NUR ---
Per nursing remote encoding operations supervisor, patient tested positive for covid approx two weeks ago and a swab would still test positve. Swab not needed.
[2021-10-19 04:56] LABS: ALBUMIN 3.8 G/DL (3.4-5.0); ANION GAP 11 (8-16); BLOOD UREA NITROGEN 25 MG/DL (7-18); BUN/CREATININE RATIO 23.4 (6.6-38.0); CALCIUM 10.3 MG/DL (8.5-10.1); CHLORIDE 104 MMOL/L (99-107); CREATININE 1.07 MG/DL (0.40-0.90); SODIUM 137 MMOL/L (135-145); TOTAL CARBON DIOXIDE 22.5 MMOL/L (24-32); eGFR 53 ML/MIN
[2021-10-19 04:57] LABS: COLOR,URINE YELLOW (Yellow); GLUCOSE, URINE NEGATIVE (Neg); KETONES,URINE NEGATIVE (Neg); LEUKOCYTE ESTERASE ,URINE SMALL (Neg); NITRITES, URINE NEGATIVE (Neg); OCCULT BLOOD,URINE MODERATE (Neg); PH,URINE 5.5 (4.8-8.0); PROTEIN,URINE NEGATIVE (Neg); UROBILINOGEN,URINE 0.2 E.U/dL (0.2-1.0)
[2021-10-19 04:57] LABS: GLUCOSE 133 MG/DL (70-104)
[2021-10-19 05:01] LABS: UA COLLECTION TYPE NON-SPECIFIED
[2021-10-19 05:02] LABS: CLARITY,URINE SLIGHTLY CLOUDY (Clear)
[2021-10-19 05:03] LABS: BACTERIA,URINE FEW /HPF (Neg)
[2021-10-19 05:04] LABS: SQUAMOUS EPITHELIAL CELL,UR MODERATE /LPF (FEW)
[2021-10-19] MEDS ORDERED: ondansetron/PF 4mg/2ml inj IV ONE (05:15)
[2021-10-19] MEDS ORDERED: HYDROmorphone 1 mg/ml syringe IV ONE (05:15)
[2021-10-19 05:39] LABS: ANISOCYTOSIS 1+; LARGE PLATELETS FEW; PLATELET ESTIMATE NORMAL
[2021-10-19 05:40] LABS: POLYCHROMASIA FEW
[2021-10-19] MEDS ORDERED: CefTRIAXone/D5W-Rocephin 1gm 50 ML IV ONE (05:45)
[2021-10-19] MEDS ORDERED: tamsulosin 0.4mg capsule PO ONE (07:25)
[2021-10-19] MEDS ORDERED: morphine 4 MG/ML inj SYRINge IV ONE (07:55)
[2021-10-19] MEDS ORDERED: magnesium 4gm in 100ml NS 100 ML IV PRN (09:15)
[2021-10-19] MEDS ORDERED: potassium Cl 20 mEq SR tablet PO PRN ×2 (09:15)
[2021-10-19] MEDS ORDERED: ondansetron/PF 4mg/2ml inj IV PRN (09:15)
[2021-10-19] MEDS ORDERED: magnesium Cl slow-release 64mg tablet PO PRN (09:15)
[2021-10-19] MEDS ORDERED: magnesium 2GM in 50ml NS 50 ML IV PRN (09:15)
[2021-10-19] MEDS ORDERED: acetaminophen 325mg tablet PO PRN ×2 (09:15)
[2021-10-19] MEDS ORDERED: HYDROcodone/acetaminophen 5mg/325mg tablet PO PRN (09:15)
[2021-10-19] MEDS ORDERED: potassium CL 10mEq/100ml bag 100 ML IV PRN (09:15)
[2021-10-19] MEDS ORDERED: HYDROcodone/acetaminophen 10/325mg tab PO PRN (09:15)
[2021-10-19] MEDS: normal saline 1000ml 1,000 ML IV SCH ×2 (09:15→19:15)
[2021-10-19 10:03] LABS: MAGNESIUM 1.7 MG/DL (1.5-2.4)
[2021-10-19] MEDS ORDERED: ALLO300T2 PO (10:57)
[2021-10-19] MEDS ORDERED: DIRO231C2 PO (10:57)
[2021-10-19] MEDS ORDERED: ASPI81TA52 PO (10:57)
[2021-10-19] MEDS ORDERED: CHOL100017 PO (10:57)
[2021-10-19] MEDS ORDERED: HYDR-3972 PO (10:57)
[2021-10-19] MEDS: morphine 2 MG/ML inj. syringe IV PRN ×3 (11:22→22:25)
[2021-10-19] MEDS: K and/or MAG REPLACEMENT MC SCH (18:56)
[2021-10-19 19:00] VITALS: BP 122/61
[2021-10-19] MEDS: heparin, porcine 5000 units/ml vial SQ SCH (19:28)
[2021-10-19] MEDS: DIROXIMEL FUMARATE 231 MG PO SCH (20:00)
[2021-10-19] MEDS ORDERED: temazepam 15mg capsule PO PRN (21:00)
[2021-10-19] MEDS: tamsulosin 0.4mg capsule PO SCH (21:06)
[2021-10-20 00:37] VITALS: BP 108/76
[2021-10-20] MEDS: morphine 2 MG/ML inj. syringe IV PRN ×3 (04:56→17:05)
[2021-10-20] MEDS: normal saline 1000ml 1,000 ML IV SCH ×3 (05:15→10:20)
[2021-10-20 07:07] VITALS: BP 118/63
[2021-10-20] MEDS: CefTRIAXone 2gm/D5W 50ml BAG 50 ML IV SCH (07:52)
[2021-10-20] MEDS: allopurinol 300 MG tablet PO SCH (07:52)
[2021-10-20] MEDS: heparin, porcine 5000 units/ml vial SQ SCH ×2 (07:53→08:00)
[2021-10-20] MEDS: amLODIPine 5mg tablet PO SCH (07:53)
[2021-10-20] MEDS: atorvastatin 20mg tablet PO SCH (07:53)
[2021-10-20] MEDS: DIROXIMEL FUMARATE 231 MG PO SCH ×2 (08:00→20:00)
[2021-10-20] MEDS: K and/or MAG REPLACEMENT MC SCH ×2 (08:00→20:00)
--- NOTE | 2021-10-20 08:09 | NUR ---
message to dr sheikh "PAGER ID: [phone] MESSAGE: [phone] precidio [place] makes her itch. pain 7/10morphine not avail for another hour. please switch [place] to another med. please consider ordering something for anxiety. pts on covid unt, appears to not to be doing well. thank you [phone]"
[2021-10-20] MEDS ORDERED: LORazepam 2 mg/ml vial IV PRN (09:00)
[2021-10-20 11:18] VITALS: BP 123/71
[2021-10-20] MEDS: LORazepam 0.5 MG tablet PO PRN ×2 (12:29→20:40)
[2021-10-20] MEDS: HYDROmorphone 2mg tablet PO PRN ×2 (12:30→16:56)
[2021-10-20 17:45] LABS: BASOPHILS # (AUTO) 0.1 X10'3 (0-0.2); BASOPHILS % (AUTO) 1.4 % (0-1); EOSINOPHILS # (AUTO) 0.2 X10'3 (0-0.9); HEMATOCRIT 34.7 % (35.0-45.0); HEMOGLOBIN 11.9 g/dl (12.0-16.0); LYMPHOCYTES % (AUTO) 25.3 % (21-51); MEAN CORPUSCULAR HEMOGLOBIN 29.5 PG (27.0-31.0); MEAN CORPUSCULAR HGB CONC 34.2 g/dL (33.0-36.5); MEAN CORPUSCULAR VOLUME 86.3 FL (78-98); MEAN PLATELET VOLUME 10.8 FL (7.4-10.4); MONOCYTES # (AUTO) 0.4 X10'3 (0-0.9); NEUTROPHILS # (AUTO) 2.2 X10'3 (1.8-7.7); NEUTROPHILS % (AUTO) 58.3 % (42-75); PLATELET COUNT 165 X10'3 (140-440); RED BLOOD COUNT 4.02 X10'6 (4.20-5.60); RED CELL DISTRIBUTION WIDTH 14.8 % (11.5-14.5); WHITE BLOOD COUNT 3.8 X10'3 (4.5-11.0)
[2021-10-20 17:58] LABS: ALANINE AMINOTRANSFERASE 35 U/L (12-78); ALBUMIN 3.2 G/DL (3.4-5.0); ALBUMIN/GLOBULIN RATIO 0.9 (1.1-1.5); ANION GAP 8 (8-16); ASPARTATE AMINO TRANSFERASE 20 U/L (10-37); BILIRUBIN,TOTAL 0.2 MG/DL (0.1-1.0); BLOOD UREA NITROGEN 12 MG/DL (7-18); BUN/CREATININE RATIO 22.2 (6.6-38.0); CALCIUM 9.5 MG/DL (8.5-10.1); CHLORIDE 107 MMOL/L (99-107); CREATININE 0.54 MG/DL (0.40-0.90); POTASSIUM 3.9 MMOL/L (3.5-5.1); SODIUM 140 MMOL/L (135-145); TOTAL CARBON DIOXIDE 25.2 MMOL/L (24-32); TOTAL PROTEIN 6.6 G/DL (6.4-8.2); eGFR > 90 ML/MIN
[2021-10-20 17:59] LABS: GLUCOSE 112 MG/DL (70-104)
[2021-10-20 18:00] VITALS: BP 104/76
[2021-10-20] MEDS: tamsulosin 0.4mg capsule PO SCH (20:40)
[2021-10-20 21:12] LABS: PLATELET ESTIMATE NORMAL; TOTAL CELLS COUNTED 100
[2021-10-20 21:13] LABS: LARGE PLATELETS FEW
[2021-10-20 21:15] LABS: ANISOCYTOSIS FEW; POLYCHROMASIA FEW
[2021-10-20] MEDS: HYDROmorphone 1 mg/ml syringe IV PRN (22:24)
[2021-10-20 23:54] VITALS: BP 110/72
[2021-10-21] MEDS: HYDROmorphone 1 mg/ml syringe IV PRN (05:35)
[2021-10-21] MEDS: DIROXIMEL FUMARATE 231 MG PO SCH (07:33)
[2021-10-21] MEDS: K and/or MAG REPLACEMENT MC SCH (08:00)
[2021-10-21 08:38] VITALS: BP 121/80
--- NOTE | 2021-10-21 08:41 | NUR ---
message to dr thomas"PAGER ID: [phone] MESSAGE: [phone] precidio claus ok to d/c with f/u in 1 wk ~Kayleen juarez [phone]"""
[2021-10-21] MEDS: amLODIPine 5mg tablet PO SCH (08:52)
[2021-10-21] MEDS: LORazepam 0.5 MG tablet PO PRN (08:52)
[2021-10-21] MEDS: CefTRIAXone 2gm/D5W 50ml BAG 50 ML IV SCH (08:52)
[2021-10-21] MEDS: atorvastatin 20mg tablet PO SCH (08:52)
[2021-10-21] MEDS: heparin, porcine 5000 units/ml vial SQ SCH (08:53)
[2021-10-21] MEDS: allopurinol 300 MG tablet PO SCH (08:53)
[2021-10-21] MEDS ORDERED: CEPH500C2 PO (10:53)
[2021-10-21] MEDS ORDERED: tamsulosin capsule PO (10:53)
[2021-10-21] MEDS: morphine 2 MG/ML inj. syringe IV PRN (11:09)
[2021-10-21] MEDS: normal saline 1000ml 1,000 ML IV SCH (11:15)
[2021-10-21 11:42] VITALS: BP 153/95
--- NOTE | 2021-10-21 13:04 | NUR ---
message to dr thomas "PAGER ID: [phone] MESSAGE: [id number] pt needs pain meds, has not been taking [place] due to itching ~Kayleen b [phone]". returned page and stated that he will come up later to discuss with pt
[2021-10-21] MEDS ORDERED: oxyCODONE/APAP 5-325mg tablet PO ONE (14:35)
[2021-10-21] MEDS ORDERED: OXYC1TAB17 PO (14:48)
== END 2021-10-21 16:03 | disposition home or self-care (01) | DRG 690 ==
LOC: ER 03:07 → ED HOLD 09:15 → SUR 3N 13:45
PROVIDERS: ADMIT Internal Medicine; ATTEND Internal Medicine
DX: N13.6 Pyonephrosis (principal); N17.0 Acute kidney failure with tubular necrosis; Z20.822 Contact with and (suspected) exposure to COVID-19; G35 Multiple sclerosis; L27.0 Generalized skin eruption due to drugs and medicaments taken internally; N18.9 Chronic kidney disease, unspecified; I12.9 Hypertensive chronic kidney disease with stage 1 through stage 4 chronic kidney disease, or unspecified chronic kidney disease; F41.9 Anxiety disorder, unspecified; T40.2X5A Adverse effect of other opioids, initial encounter; Y92.89 Other specified places as the place of occurrence of the external cause; Z85.72 Personal history of non-Hodgkin lymphomas; Z86.73 Personal history of transient ischemic attack (TIA), and cerebral infarction without residual deficits; Z87.442 Personal history of urinary calculi; Z90.49 Acquired absence of other specified parts of digestive tract; Z56.0 Unemployment, unspecified; Z88.8 Allergy status to other drugs, medicaments and biological substances; Z91.041 Radiographic dye allergy status; Z98.51 Tubal ligation status; Z79.899 Other long term (current) drug therapy; Z79.82 Long term (current) use of aspirin; R00.0 Tachycardia, unspecified
CPT/HCPCS: 36415; 74176; 80048; 80053; 81001; 83605; 83735; 85007; 85008; 85025; 87040; 87081; 87088; 87635; 96374; 97161; 97530; 99285; C9803; G0378; J0696; J1170; J1644; J2270; J2405; J7030

== ENCOUNTER 2024-01-22 14:17 | Emergency (ER) | payer MEDICARE, MEDICAID ==
[~2024-01-22] VITALS: Ht 160 cm; Wt 118.0 kg
[~2024-01-22 14:17] MED LIST changes: +ALLO300T2 PO; -ALLO300T8 PO; -ASPI-611 PO; +ASPI81TA52 PO; +CEPH500C2 PO; +CHOL100017 PO; -CHOL500050 PO; -CIPR-202 PO; +DIRO231C2 PO; +HYDR-3972 PO; -IBUP-1986 PO; -LACT1CAP26 PO; +OXYC1TAB17 PO; +tamsulosin capsule PO
[2024-01-22 14:34] VITALS: BP 151/95; PULSE 77; RESP 16; TEMP 98.4; O2SAT 96
[2024-01-22 15:22] LABS: BASOPHILS % (AUTO) 0.6 % (0-1); EOSINOPHILS % (AUTO) 0.5 % (0-6); HEMATOCRIT 44.3 % (35.0-45.0); HEMOGLOBIN 15.2 g/dl (12.0-16.0); LYMPHOCYTES # (AUTO) 0.3 X10'3 (1.1-4.8); LYMPHOCYTES % (AUTO) 5.1 % (21-51); MEAN CORPUSCULAR HEMOGLOBIN 31.3 PG (27.0-31.0); MEAN CORPUSCULAR HGB CONC 34.4 g/dL (33.0-36.5); MEAN CORPUSCULAR VOLUME 91.1 FL (78-98); MEAN PLATELET VOLUME 9.3 FL (7.4-10.4); MONOCYTES # (AUTO) 0.7 X10'3 (0-0.9); MONOCYTES % (AUTO) 12.4 % (2-12); NEUTROPHILS # (AUTO) 4.7 X10'3 (1.8-7.7); NEUTROPHILS % (AUTO) 81.4 % (42-75); PLATELET COUNT 252 X10'3 (140-440); RED BLOOD COUNT 4.86 X10'6 (4.20-5.60); RED CELL DISTRIBUTION WIDTH 14.3 % (11.5-14.5); WHITE BLOOD COUNT 5.8 X10'3 (4.5-11.0)
[2024-01-22 15:33] LABS: ALBUMIN 3.5 G/DL (3.4-5.0); ANION GAP 9 (8-16); BLOOD UREA NITROGEN 18 MG/DL (7-18); BUN/CREATININE RATIO 26.1 (10.0-20.0); CALCIUM 10.2 MG/DL (8.5-10.1); CHLORIDE 107 MMOL/L (99-107); CREATININE 0.69 MG/DL (0.40-0.90); GLUCOSE 108 MG/DL (70-104); POTASSIUM 3.6 MMOL/L (3.5-5.1); PRO BRAIN NATRIURETIC PEPTIDE 108 PG/ML (0-125); SODIUM 140 MMOL/L (135-145); TOTAL CARBON DIOXIDE 23.6 MMOL/L (24-32); eCRCL 74 ML/MIN; eGFR 88 ML/MIN
== END 2024-01-22 17:59 | disposition left against medical advice (07) ==
LOC: ER 14:18
DX: R10.10 Upper abdominal pain, unspecified (principal); Z53.21 Procedure and treatment not carried out due to patient leaving prior to being seen by health care provider
CPT/HCPCS: 36415; 71045; 80048; 83880; 84484; 85025; 93005

== ENCOUNTER 2025-03-23 16:32 | Emergency (ER) | payer MEDICARE, MEDICAID ==
[~2025-03-23] VITALS: Ht 160 cm; Wt 122.5 kg
[2025-03-23] MEDS ORDERED: ketorolac trometh 30MG/ML vial 30 MG/ML VIAL IM ONE (16:50)
--- NOTE | 2025-03-23 16:53 | Physician Documentation ---
History of Present Illness ~ Chief Complaint: Back Pain Stated Complaint: "KIDNEY STONE" Time Seen by MD: 17:08 OK to notify your PCP?: Yes Primary Medical Doctor: [facility] Oma Smith Source: patient Mode of Arrival: POV Exam Limitations: no limitations HPI 60-year-old female presents for right flank pain. She was seen at [facility] yesterday given 2 bags of fluids was told it might be a kidney stone and given a prescription for narcotic pain medication. 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 She has a history of kidney stones and says it feels the same. She has had a history of having to have ureter stents placed for stones. She has also been having decreased urination. has a history of non-Hodgkin's lymphoma and multiple sclerosis. Medication Reconciliation Allergies: Coded Allergies: Iodinated Contrast Media (Verified Allergy, Severe, SOB, HIVES, 03/21/20) diatrizoate meglumine (Verified Allergy, Severe, HIVES, SOB, 03/21/20) levofloxacin (Verified Allergy, Intermediate, HIVES, 03/21/20) Uncoded Allergies: IV CONTRAST (Adverse Reaction, Severe, HIVES, SOB, 05/05/11) Scheduled Allopurinol (Allopurinol), 1 TAB PO QAM, (Reported) Amlodipine Besylate (Amlodipine Besylate), 1 TAB PO DAILY, (Reported) Aspirin (Aspirin EC), 1 TAB PO DAILY, (Reported) Atorvastatin Calcium (Atorvastatin Calcium), 1 TAB PO DAILY, (Reported) Cephalexin Monohydrate (Cephalexin), 1 CAP PO QID Cholecalciferol (Vitamin D3) (Vitamin D3), 1 TAB PO DAILY, (Reported) Diroximel Fumarate (Vumerity), 2 CAP PO BID, (Reported) Lisinopril* (Lisinopril*), 1 TAB PO QAM, (Reported) [tamsulosin capsule], 0.4 MG PO HS Scheduled PRN Hydrocodone Bit/Acetaminophen (Hydrocodon-Acetaminophn 10-325 tablet), 1 EACH PO DAILY PRN for moderate or severe pain 4-10, (Reported) Lorazepam (Ativan), 1 MG PO DAILY PRN for IVIG TREATMENT, (Reported) Oxycodone Hcl/Acetaminophen (Oxycodone-Acetaminophen 10-325), 1 TAB PO Q8H PRN for severe pain (7-10) Past Medical History Past Medical History: CVA/TIA/Stroke, Multiple Sclerosis, Hypertension, Kidney Stones, UTI, Lymphoma Past Surgical History: appendectomy, tubal ligation, other Other Past Surgical History: Lithotripsy Other Past Family History: Reviewed, noncontribturoy Alcohol Use: None Drug Use: none Lives with: Spouse Lives In: Home Occupation: unemployed Review of Systems All Other Systems at this time: Reviewed and Negative Physical Exam Physical Exam Vital Signs: RN Vital Signs have been reviewed: Yes, Temperature: 98.1, Heart Rate: 78, Respiratory Rate: 20, BP: 135/93, Pulse Oximetry: 97, Weight: 122.500 Oxygen Flow Rate: 0 Pulse Oximetry Reflects: adequate oxygenation Physical Exam General: Alert, no distress. HEENT: No injection, moist mucous membranes. Neck: Full range of motion. Respiratory: No respiratory distress, equal chest rise and fall. Chest: No accessory muscle use. Cardiovascular: Regular rate and rhythm. Gastrointestinal: Nondistended. Extremities: Normal range of motion, no deformity. Back: Right CVA tenderness Neurologic: Oriented x4. Psychiatric: Normal mood and affect. Skin: Normal color, warm and dry. Progress Results/Orders Results/Orders Orders - OLIVIA GUZMAN SUPERVISOR ESTIMATOR AND DRAFTER Urinalysis, Cult If Indicated (03/23/25 17:14) Oxycodone/Acetaminophen Tablet (Percocet (03/23/25 18:45) Completed Orders - OLIVIA GUZMAN SUPERVISOR ESTIMATOR AND DRAFTER Cbc/Diff (03/23/25 17:14) Ondansetron Inj. (Zofran 4mg/2ml Vial) (03/23/25 17:15) Morphine 4mg/Ml Inj. (Morphine Inj.) (03/23/25 17:15) Normal Saline 1000ml (0.9% Sodium Chlori (03/23/25 17:15) BMP (03/23/25 17:14) Ketorolac Trometh 15mg/Ml Vial (Toradol (03/23/25 17:15) Morphine Er Tablet (Ms Contin Tablet) (03/23/25 18:35) Medications Received in ER Medications (Trade) Dose Ordered Sig/Talha Route PRN Reason Start Time Stop Time Status Last Admin Dose Admin (Zofran 4mg/2ml vial) 4 mg ONCE ONCE IV 03/23/25 17:15 03/23/25 17:20 DC 03/23/25 18:41 4 MG (morphine inj.) 4 mg ONCE ONCE IV 03/23/25 17:15 03/23/25 17:20 DC 03/23/25 18:43 4 MG (Toradol injection) 15 mg ONCE ONCE IV 03/23/25 17:15 03/23/25 17:20 DC 03/23/25 18:42 15 MG Vital Signs 03/23/25 03/23/25 03/23/25 03/23/25 16:35 18:30 18:42 18:43 Temp 98.1 Pulse 78 Resp 20 16 18 18 B/P (MAP) 135/93 Pulse Ox 97 O2 Flow Rate 0 Laboratory Tests Test 03/23/25 17:40 White Blood Count 7.9 Red Blood Count 5.09 Hemoglobin 15.7 Hematocrit 45.7 H Mean Corpuscular Volume 90.0 Mean Corpuscular Hemoglobin 30.9 Mean Corpuscular Hemoglobin Concent 34.4 Red Cell Distribution Width 13.9 Platelet Count 240 Mean Platelet Volume 9.9 Neutrophils (%) (Auto) 83.3 H Lymphocytes (%) (Auto) 4.9 L Monocytes (%) (Auto) 11.3 Eosinophils (%) (Auto) 0.1 Basophils (%) (Auto) 0.4 Neutrophils # (Auto) 6.6 Lymphocytes # (Auto) 0.4 L Monocytes # (Auto) 0.9 Eosinophils # (Auto) 0.0 Basophils # (Auto) 0.0 CBC Comment Sodium Level 137 Potassium Level 3.8 Chloride Level 106 Carbon Dioxide Level 25.8 Anion Gap 5 L Blood Urea Nitrogen 18 Creatinine 0.59 Estimated GFR/1.73 m2 > 90 BUN/Creatinine Ratio 30.5 H Glucose Level 109 H Calcium Level 9.9 Albumin 3.3 L Chemistry Comments EKG/XRAY/CT/US/VASC/MRI CT : Impression CT CT ABDOMEN PELVIS INDICATION: right flank pain. hx kidney stones EXAM DATE: 03/23/2025 05:09 PM COMPARISON: CT ABDOMEN PELVIS on DOS: 10/19/21, CT ABDOMEN PELVIS on DOS: 10/04/21, CT ABDOMEN PELVIS on DOS: 07/19/21 RADIATION DOSE: CTDIvol: 36 mGy, DLP: 1837 mGy*cm PROCEDURE: Helical CT images were obtained of the abdomen and pelvis without IV contrast Sagittal and coronal reconstructions are provided. ORAL CONTRAST: None. ADDITIONAL IMAGES / REFORMATS: None All CT scans at this medical facility are performed using dose modulation techniques as appropriate to a performed exam including the following: Automated exposure control was utilized; adjustment of the MA and/or KV according to patient size; and use of iterative reconstruction technique. FINDINGS: LUNG BASE: LLL consolidation. LIVER: Normal. GALLBLADDER AND BILIARY TREE: No calcified gallstones. Normal caliber wall. No intra- or extrahepatic biliary ductal dilation. PANCREAS: Normal. SPLEEN: Normal. BOWEL: Mild colonic diverticulosis. Appendix not seen. ADRENALS: Normal. KIDNEYS AND URETER: 3.3 cm left kidney cyst. Tiny nonobstructive right kidney stone. BLADDER: Normal. REPRODUCTIVE ORGANS: Normal. LYMPH NODES:No lymphadenopathy. PERITONEUM: No ascites or free air. No other fluid collection. VESSELS: Scattered atherosclerotic calcifications are noted. RETROPERITONEUM: Normal. ABDOMINAL WALL: Normal. BONES: Scattered osseous degenerative changes are noted. Lumbar spinal hardware appears intact. IMPRESSION: No acute intraabdominal abnormality. Mild colonic diverticulosis. Tiny nonobstructive right kidney stone. LLL consolidation. Medical Decision Making Findings Patient already worked up for kidney stones but was unable to continuous pickling line pickler helper her medications. We will attempt to achieve pain control for patient to continuous pickling line pickler helper medications. CT was already ordered to evaluate size of kidney stone and potential obstruction as well as hydronephrosis. Fluid to help pass stone. CT shows tiny nonobstructing right kidney stone simple left kidney cyst. We will give her medications for pain management which she was not able to continuous pickling line pickler helper today but now they are ready for pickup. Follow up with urologist and primary care Departure Time of Disposition: 18:21 Disposition: 01 HOME / SELF CARE / HOMELESS Impression: Primary Impression: Kidney stone Condition: Stable Discharge Instructions: Kidney Stones, [id number] Additional Instructions: millroom supervisor pain medications that were prescribed yesterday when being evaluated at [facility]. Call and make an appointment with [facility]. Kidney stone is small and non obstructive. Rest and stay well hydrated Referrals: NO PRIMARY CARE PROVIDER (PCP) Education Educated: Patient Educated regarding: diagnosis, treatment, need for follow up Signature Scribe Signature: No Scribe Attestation: The note accurately reflects work and decisions made by me.Olivia Guzman - [facility] 03/23/25 17:17 IRIS RAMOS JIVE DEVELOPER Mar 23, 2025 16:53 OLIVIA GUZMAN NP Mar 23, 2025 17:17
[2025-03-23] MEDS ORDERED: ondansetron 4mg rapidly disintigrating tab PO ONE (16:55)
[2025-03-23] MEDS ORDERED: normal saline 1000ML IV soln IVB ONE (17:15)
[2025-03-23 17:52] LABS: MEAN PLATELET VOLUME 9.9 FL (7.4-10.4); RED CELL DISTRIBUTION WIDTH 13.9 % (11.5-14.5)
[2025-03-23 18:02] LABS: CREATININE 0.59 MG/DL (0.40-0.90); TOTAL CARBON DIOXIDE 25.8 MMOL/L (24-32); eCRCL 86 ML/MIN; eGFR > 90 ML/MIN
--- NOTE | 2025-03-23 18:08 | RADIOLOGY REPORT ---
CT CT ABDOMEN PELVIS INDICATION: right flank pain. hx kidney stones EXAM DATE: 03/23/2025 05:09 PM COMPARISON: CT ABDOMEN PELVIS on DOS: 10/19/21, CT ABDOMEN PELVIS on DOS: 10/04/21, CT ABDOMEN PELVIS o n DOS: 07/19/21 RADIATION DOSE: CTDIvol: 36 mGy, DLP: 1837 mGy*cm PROCEDURE: Helical CT images were obtained of the abdomen and pelvis without IV contrast Sagittal and coronal reconstructions are provided. ORAL CONTRAST: None. ADDITIONAL IMAGES / REFORMATS: None All C T scans at this medical facility are performed using dose modulation techniques as appropriate to a p erformed exam including the following: Automated exposure control was utilized; adjustment of the MA and/or KV according to patient size; and use of iterative reconstruction technique. FINDINGS: LUNG BASE: LLL consolidation. LIVER: Normal. GALLBLADDER AND BILIARY TREE: No calcified gallstones. Normal caliber wall. No intra- or extrahepatic biliary ductal dilation. PANCREAS: Normal. SPLEEN: Normal. BOWEL: Mild colonic diverticulosis. Appendix not seen. ADRENALS: Normal. KIDNEYS AND URETER: 3.3 cm left kidney cyst. Tiny nonobstructive right kidney stone. BLADDER: Normal. REPRODUCTIVE ORGANS: Normal. LYMPH NODES:No lymphadenopathy. PERITONEUM: No ascites or free air. No other fluid collection. VESSELS: Scattered atherosclerotic calcifications are noted. RETROPERITONEUM: Normal. ABDOMINAL WALL: Normal. BONES: Scattered osseous degenerative changes are noted. Lumbar spinal hardware appears intact. IMPRESSION: No acute intraabdominal abnormality. Mild colonic diverticulosis. Tiny nonobstructive right kidney stone. LLL consolidation.
[2025-03-23] MEDS ORDERED: morphine ER 15mg tablet PO ONE (18:35)
[2025-03-23] MEDS: ondansetron/PF 4mg/2ml inj IV ONE (18:41)
[2025-03-23] MEDS: ketorolac trometh 15mg/ml vial 15 MG/ML ML IV ONE (18:42)
[2025-03-23] MEDS: morphine 4 MG/ML inj SYRINge IV ONE (18:43)
[2025-03-23 18:47] VITALS: BP 165/113; PULSE 71; O2SAT 99
[2025-03-23 18:52] VITALS: RESP 18
[2025-03-23 19:16] VITALS: TEMP 98.1
== END 2025-03-23 19:20 | disposition home or self-care (01) ==
LOC: ER 16:33
DX: N20.0 Calculus of kidney (principal); I10 Essential (primary) hypertension; Z86.73 Personal history of transient ischemic attack (TIA), and cerebral infarction without residual deficits; Z88.1 Allergy status to other antibiotic agents; Z88.8 Allergy status to other drugs, medicaments and biological substances; Z90.49 Acquired absence of other specified parts of digestive tract; Z91.041 Radiographic dye allergy status; Z98.51 Tubal ligation status
CPT/HCPCS: 36415; 74176; 80048; 85025; 96374; 96375; 99285; J1885; J2270; J2405

== ENCOUNTER 2025-03-24 14:31 | Emergency (ER) | payer MEDICARE, MEDICAID ==
[~2025-03-24] VITALS: Ht 160 cm; Wt 122.0 kg
[~2025-03-24 14:31] MED LIST changes: -LISI40TA13 PO; +LISI40TA20 PO
[2025-03-24] MEDS: ondansetron 4mg rapidly disintigrating tab PO ONE (16:54)
[2025-03-24] MEDS: ketorolac trometh 15mg/ml vial 15 MG/ML ML IM ONE (16:55)
--- NOTE | 2025-03-24 17:42 | Physician Documentation ---
History of Present Illness ~ Chief Complaint: Flank Pain Stated Complaint: KIDNEY STONES Time Seen by MD: 16:39 OK to notify your PCP?: Yes Primary Medical Doctor: [facility] Source: patient Mode of Arrival: POV Exam Limitations: no limitations HPI 60-year-old female returns for right flank pain. She was here yesterday and received a full workup for kidney stones and was found to have a tiny kidney stone in the right kidney. She was also seen at [facility] 2 days ago for the same thing they did not do any imaging but diagnosed based on clinical signs. She has been taking the pain medication and Flomax given from prior ER visits with no relief. She says the pain is 10 times worse than it was yesterday. Medication Reconciliation Allergies: Coded Allergies: Iodinated Contrast Media (Verified Allergy, Severe, SOB, HIVES, 03/21/20) diatrizoate meglumine (Verified Allergy, Severe, HIVES, SOB, 03/21/20) levofloxacin (Verified Allergy, Intermediate, HIVES, 03/21/20) Uncoded Allergies: IV CONTRAST (Adverse Reaction, Severe, HIVES, SOB, 05/05/11) Scheduled Allopurinol (Allopurinol), 1 TAB PO QAM, (Reported) Amlodipine Besylate (Amlodipine Besylate), 1 TAB PO DAILY, (Reported) Aspirin (Aspirin EC), 1 TAB PO DAILY, (Reported) Atorvastatin Calcium (Atorvastatin Calcium), 1 TAB PO DAILY, (Reported) Cephalexin Monohydrate (Cephalexin), 1 CAP PO QID Cholecalciferol (Vitamin D3) (Vitamin D3), 1 TAB PO DAILY, (Reported) Diroximel Fumarate (Vumerity), 2 CAP PO BID, (Reported) Lisinopril* (Lisinopril*), 1 TAB PO QAM, (Reported) [tamsulosin capsule], 0.4 MG PO HS Scheduled PRN Hydrocodone Bit/Acetaminophen (Hydrocodon-Acetaminophn 10-325 tablet), 1 EACH PO DAILY PRN for moderate or severe pain 4-10, (Reported) Lorazepam (Ativan), 1 MG PO DAILY PRN for IVIG TREATMENT, (Reported) Oxycodone Hcl/Acetaminophen (Oxycodone-Acetaminophen 10-325), 1 TAB PO Q8H PRN for severe pain (7-10) Past Medical History Past Medical History: CVA/TIA/Stroke, Multiple Sclerosis, Hypertension, Kidney Stones, UTI, Lymphoma Past Surgical History: appendectomy, tubal ligation, other Other Past Surgical History: Lithotripsy Other Past Family History: Reviewed, noncontribturoy Smoking Status: Never smoker Alcohol Use: None Drug Use: none Lives with: Spouse Lives In: Home Occupation: unemployed Review of Systems All Other Systems at this time: Reviewed and Negative Physical Exam Vital Signs: RN Vital Signs have been reviewed: Yes, Temperature: 97.7, Source: Temporal, Heart Rate: 76, Respiratory Rate: 16, BP: 146/101, Pulse Oximetry: 97, Weight: 122.000 Oxygen Flow Rate: 0 Pulse Oximetry Reflects: adequate oxygenation Physical Exam General: Alert, mild distress. HEENT: PERRL, EOMI, no injection, moist mucous membranes. Neck: Full range of motion. Respiratory: Lungs clear, no respiratory distress. Chest: No accessory muscle use. Cardiovascular: Regular rate and rhythm, no murmurs. Gastrointestinal: Soft, nontender, nondistended. Bowels sounds present. Back: Right CVA tenderness. no midline tenderness to palpation. Extremities: Normal range of motion, no deformity. Neurologic: Oriented x4. Psychiatric: Normal mood and affect. Skin: Normal color, warm and dry. No edema, no ecchymosis. Progress Results/Orders Reviewed/noted all lab results: Yes Results/Orders Orders - CAIT RAMOS IRON CUTTER Monitor (03/24/25 17:31) Saline Lock (03/24/25 17:31) Cta Chest Ct Abd Pelvis (03/24/25 17:31) Morphine Er Tablet (Ms Contin Tablet) (03/24/25 23:05) Completed Orders - CAIT RAMOS IRON CUTTER Ketorolac Trometh 15mg/Ml Vial (Toradol (03/24/25 16:40) Ondansetron Disint. Tablet (Zofran Odt T (03/24/25 16:40) Cbc/Diff (03/24/25 17:31) CMP (03/24/25 17:31) Lipase (03/24/25 17:31) Ondansetron Inj. (Zofran 4mg/2ml Vial) (03/24/25 17:35) Morphine 4mg/Ml Inj. (Morphine Inj.) (03/24/25 17:35) Normal Saline 1000ml (0.9% Sodium Chlori (03/24/25 17:35) Diphenhydramine Inj (Benadryl Inj.) (03/24/25 17:35) Dexamethasone Inj (Decadron 10mg/Ml Inj) (03/24/25 17:46) Cta Chest Ct Abd Pelvis (03/24/25 17:31) Iohexol 350mg/Ml 100ml (Omnipaque 350mg/ (03/24/25 18:36) Morphine 4mg/Ml Inj. (Morphine Inj.) (03/24/25 22:10) Ua W/Microscopic, Cult If Ind (03/24/25 22:04) Medications Received in ER Medications (Trade) Dose Ordered Sig/Talha Route PRN Reason Start Time Stop Time Status Last Admin Dose Admin (Toradol injection) 15 mg ONCE ONCE IM 03/24/25 16:40 03/24/25 16:48 DC 03/24/25 16:55 15 MG (Zofran ODT tablet) 4 mg ONCE ONCE PO 03/24/25 16:40 03/24/25 16:48 DC 03/24/25 16:54 4 MG (Zofran 4mg/2ml vial) 4 mg ONCE ONCE IV 03/24/25 17:35 03/24/25 17:38 DC 03/24/25 17:51 4 MG (morphine inj.) 4 mg Q20M PRN IV moderate to severe pain 4-10 03/24/25 17:35 03/24/25 19:16 DC 03/24/25 19:14 4 MG (0.9% sodium chloride (NS) 1000ml IV soln) 1,000 ml ONCE ONCE IVB 03/24/25 17:35 03/24/25 17:38 DC 03/24/25 17:52 1,000 ML (Benadryl inj.) 50 mg ONCE ONCE IV 03/24/25 17:35 03/24/25 17:37 DC 03/24/25 17:51 50 MG (Decadron 10mg/ ml inj) 10 mg ONCE STAT IV 03/24/25 17:46 03/24/25 17:52 DC 03/24/25 18:25 10 MG (morphine inj.) 4 mg ONCE ONCE IV 03/24/25 22:10 03/24/25 22:16 DC 03/24/25 22:27 4 MG Vital Signs 03/24/25 03/24/25 03/24/25 03/24/25 14:50 15:25 15:26 16:55 Temp 97.7 Pulse 85 76 Resp 16 16 16 B/P (MAP) 191/118 146/101 (116) Pulse Ox 96 97 O2 Flow Rate 0 03/24/25 03/24/25 03/24/25 17:52 19:14 22:06 Temp 97.7 Pulse 75 Resp 16 16 B/P (MAP) 160/97 (118) Pulse Ox 96 O2 Flow Rate 0 Laboratory Tests Test 03/24/25 17:45 03/24/25 22:04 White Blood Count 7.9 Red Blood Count 5.05 Hemoglobin 15.8 Hematocrit 45.4 H Mean Corpuscular Volume 89.9 Mean Corpuscular Hemoglobin 31.2 H Mean Corpuscular Hemoglobin Concent 34.7 Red Cell Distribution Width 13.7 Platelet Count 195 Mean Platelet Volume 9.7 Neutrophils (%) (Auto) 83.1 H Lymphocytes (%) (Auto) 7.5 L Monocytes (%) (Auto) 8.5 Eosinophils (%) (Auto) 0.5 Basophils (%) (Auto) 0.4 Neutrophils # (Auto) 6.6 Lymphocytes # (Auto) 0.6 L Monocytes # (Auto) 0.7 Eosinophils # (Auto) 0.0 Basophils # (Auto) 0.0 CBC Comment Sodium Level 133 L Potassium Level 3.7 Chloride Level 104 Carbon Dioxide Level 25.7 Anion Gap 3 L Blood Urea Nitrogen 15 Creatinine 0.55 Estimated GFR/1.73 m2 > 90 BUN/Creatinine Ratio 27.3 H Glucose Level 100 Calcium Level 9.4 Total Bilirubin 0.5 Aspartate Amino Transf (AST/SGOT) 20 Alanine Aminotransferase (ALT/SGPT) 38 Alkaline Phosphatase 111 Total Protein 7.5 Albumin 3.3 L Globulin 4.2 Albumin/Globulin Ratio 0.8 L Lipase 55 Chemistry Comments Urine Specimen Description Cln catch midstream Urine Color Yellow Urine Clarity Clear Urine pH 5.5 Urine Specific [place]ola 1.015 Urine Protein Negative Urine Glucose (UA) Negative Urine Ketones Negative Urine Occult Blood Trace-intact Urine Nitrite Negative Urine Bilirubin Negative Urine Urobilinogen 0.2 Urine Leukocyte Esterase Negative Urine RBC 0-2 Urine WBC 0-4 Urine Squamous Epithelial Cells Few Urine Bacteria 1+ Urine Culture Indicated Not ind Volume Urine Centrifuged 10 ml Urine Comment EKG/XRAY/CT/US/VASC/MRI CT : Impression CT of chest and CT with contrast of abdomen pelvis it as interpreted by me shows: No pulmonary embolism, no gallstones, no hydronephrosis on either kidney, no urethral or bladder calculus is identified, urinary bladder is unremarkable, no free air, no pleural effusion, pancreas and spleen are normal size, liver is normal in size and contour. Medical Decision Making Additional info obtained from: old records Findings 52-year-old female returns for right flank pain. Yesterday's CT scan showed a tiny kidney stone in the right side as well as a 3.3 cm cyst on the left kidney. She is tearful during the exam and is having right CVA tenderness. She does not have any midline tenderness in the thoracic or lumbar spine. We gave Toradol and ODT Zofran and she did have some relief of her nausea but very little pain relief from the Toradol. She has a history of multiple sclerosis and non-Hodgkin's lymphoma. She does have a right chest wall port and she receives treatment for her lymphoma every 28 days. Discussed this case with Dr. Roach and he recommended giving medication for pain relief as well as a CT of her abdomen and pelvis. I talked to him again due to her history and he recommends considering a pulmonary embolism as this can present as flank pain. She is not anticoagulated but she does receive heparin in her port after her tr eatments. She is allergic to IV contrast and she says that it causes a rash as well as some throat tightness. She has been treated with Benadryl prior to scans at [facility] in did not have a reaction. The nurse was able to access the port and administered all medications. I ordered a CTA of the chest PE study with abdomen pelvis. I pretreated her for the exposure to contrast with Benadryl and Decadron. As well as 1 L NS, morphine and Zofran for pain relief. Morphine helped but due to some delay in getting her images completed the pain returned and I repeated the dose of 4 mg of morphine. She experienced some relief from this. Her CT of the chest with CT with contrast of abdomen pelvis showed no evidence of pulmonary embolism no thoracic aortic dissection or aneurysm, small hiatal hernia, medial left lower lobe consolidation. I discussed these findings with the patient and she says that the left lower lobe consolidation is normal for her in his scar tissue from previous lung infections. She states that she had knows what pneumonia feels like and she does not have that. On the CT exam the kidneys enhance symmetrically there is no solid renal mass there are a few simple left renal cyst the largest of which is 3.9 cm on the left kidney. There is no hydronephrosis of either kidney, urethral or bladder calculus were not identified. She has a history of an appendectomy. There are no gallstones identified in the hepatic veins and portal veins are normal. Liver is normal in size and contour. Her labs are unremarkable in her urinalysis shows trace blood but no UTI. Discussed this case with Dr. Woodward, as this patient is in intractable pain and he recommends admission despite all of her findings being reassuring other than the kidney stone found yesterday. The patient is adamant that she has had many kidney stones in her life and it never felt like this before. I discussed this case with the admitting hospitalist who declined the admission for intractable pain due to a normal workup besides having a tiny kidney stone yesterday. I discussed this with the patient that she will be discharged home as she does not meet any of the criteria for admission per the hospitalist. I ordered a 15 mg MS Contin just prior to discharge. She does not drive and we will be giving her a taxi ride home. She does have a relationship with a [facility]rologist [facility] she used to see Dr. Cronin who has since retired. I encouraged her to call them 1st thing in the morning on Tuesday explained the situation and see if she can be seen on an outpatient basis with him. She already has pain medication and Flomax at home that was prescribed at prior ER visits and she was encouraged to take that, increase fluids, try heating pack to help with the pain relief. We discussed that she should return back here for any new or worsening symptoms and follow up with the primary care in the next 3 days. Diff Dx Pain:Considerations: Include: Angina/MA, Aortic dissection, Appendicitis, Cholelithasis, Ovarian cyst/torsion, Pancreatitis, Urinary obstruction, Urinary tract infection, Urolithiasis Departure Disposition: 01 HOME / SELF CARE / HOMELESS Impression: Primary Impression: Kidney stone Condition: Stable Discharge Instructions: Kidney Stones Additional Instructions: Continue to take the Flomax at home that you already have once daily the other medications that you have been prescribed already to pass this kidney stone. Call the urologist 1st thing in the morning and let them know what has been going on to see if they can see urgently on outpatient basis. Increase fluid intake. Return back here for any new or worsening symptoms. Follow up with her primary care provider within the next 3 days. Referrals: NO PRIMARY CARE PROVIDER (PCP) Education Educated: Patient Educated regarding: diagnosis, treatment, prognosis, need for follow up Additional Comment Medical Screen Exam This patient recieved a medical screening examination. After reviewing the individual's medical complaints with presenting symptoms and performing an appropriate physical examination, it was determined that no immediate life- threatening emergency medical condition is present. This individual is also not a women having contractions. Signature Scribe Signature: . Attestation: Scribed for Cait Ramos [facility] by Cait Soto NP . 03/24/25 23:15 Parts of this note were created using [employer] voice recognition software program. While efforts were made to correct any mistakes made by this voice recognition software program, nonsensical phrases may remain in this note. In addition, there may be errors and syntax, grammar, content and spelling. CAIT RAMOS IRON CUTTER Mar 24, 2025 17:42
[2025-03-24] MEDS: ondansetron/PF 4mg/2ml inj IV ONE (17:51)
[2025-03-24] MEDS: morphine 4 MG/ML inj SYRINge IV PRN (17:52)
[2025-03-24] MEDS: normal saline 1000ML IV soln IVB ONE (17:52)
[2025-03-24 17:56] LABS: MEAN PLATELET VOLUME 9.7 FL (7.4-10.4); RED CELL DISTRIBUTION WIDTH 13.7 % (11.5-14.5)
[2025-03-24 18:11] LABS: CREATININE 0.55 MG/DL (0.40-0.90); TOTAL CARBON DIOXIDE 25.7 MMOL/L (24-32); eCRCL 92 ML/MIN; eGFR > 90 ML/MIN
[2025-03-24] MEDS: dexamethasone sod phosphate 10mg/ml inj IV STA (18:25)
[2025-03-24 19:14] VITALS: RESP 16
--- NOTE | 2025-03-24 21:37 | RADIOLOGY REPORT ---
EXAM: CT CTA CHEST CT ABD PELVIS HISTORY: flank pain, worse than yesterday COMPARISON: None TECHNIQUE: Helical high resolution CT images of the chest were performed with 90 ml Isovue 370 IV con trast using CTA protocol. CT of the abdomen and pelvis were performed with contrast in the portal jadon ous phase. Sagittal and coronal reformatted images and 3-D MIP images were obtained. This CT exam was performed using one or more of the following dose reduction techniques: Automated exposure control, adjustment of the mA and/or kv according to patient size, or the use of iterative reconstruction tech niques. Radiation Dose : CT Dose: CTDI volume is 35 mGy. Dose-length product is 2636 mGy*cm FINDINGS: There is no thoracic aortic aneurysm or dissection. There is no pulmonary arterial filling defect as far as the subsegmental level to suggest pulmonary embolism. There is partial consolidation of the me dial left lower lobe with air bronchograms, unchanged. The lungs are otherwise clear. There is no ple ural effusion. There is no pneumothorax. There is no pericardial effusion. There is a port in the ri t chest with the catheter terminating in the mid SVC. There are coronary artery calcifications. The spleen is not enlarged. The liver is normal in size and contour. The portal vein is patent. The hepatic veins are patent. No calcified gallstone is identified. The pancreas appears normal. The adr enal glands are within normal limits. The kidneys enhance symmetrically. No solid renal mass is ident ified. There are a few simple left renal cysts, the largest of which is a 3.9 cm simple cyst at the i nterpolar region of the left kidney which requires no dedicated follow-up. There is no hydronephrosis of either kidney. No ureteral or bladder calculus is identified. The urinary bladder is unremarkable . The uterus and ovaries are within normal limits. No free fluid is identified in the abdomen or pel vis. There is no pathologic lymphadenopathy by size criteria. There is no abdominal aortic aneurysm . There is a small hiatal hernia. There is no pathologic distention of the small bowel to suggest ob struction. The colonic stool burden is small. The appendix is surgically absent. There is no patholog ic distention of the small bowel to suggest obstruction. There is a small fat containing umbilical he rnia. No acute osseous abnormality is identified. There is linear soft tissue density in the subcutan eous fat superficial to the lumbar spine likely representing scarring. There is transpedicular fusion of L3, L4, and L5. IMPRESSION: No evidence of pulmonary embolism as far as the subsegmental level. No thoracic aortic dissection or aneurysm. Medial left lower lobe consolidation with air bronchograms, unchanged. This is concerning for focal pneumonia. Small hiatal hernia. Appendectomy. Surgical changes associated with fusion of L3, L4, and L5.
[2025-03-24 22:06] VITALS: BP 160/97; PULSE 75; O2SAT 96
[2025-03-24 22:22] LABS: LEUKOCYTE ESTERASE ,URINE NEGATIVE (Neg); OCCULT BLOOD,URINE TRACE-INTACT (Neg)
[2025-03-24] MEDS: morphine 4 MG/ML inj SYRINge IV ONE (22:27)
[2025-03-24 22:32] LABS: UA COLLECTION TYPE CLN CATCH MIDSTREAM
[2025-03-24 22:33] LABS: NITRITES, URINE NEGATIVE (Neg)
[2025-03-24 22:35] LABS: SQUAMOUS EPITHELIAL CELL,UR FEW /LPF (FEW)
[2025-03-24] MEDS: morphine ER 15mg tablet PO ONE (23:15)
[2025-03-24] MEDS: heparin sodium, porcine/PF 100unit/ml 5ML syringe IV ONE (23:31)
[2025-03-24 23:44] VITALS: TEMP 97.7
== END 2025-03-24 23:46 | disposition home or self-care (01) ==
LOC: ER 14:32
DX: N20.0 Calculus of kidney (principal); I10 Essential (primary) hypertension; Z86.73 Personal history of transient ischemic attack (TIA), and cerebral infarction without residual deficits; Z87.440 Personal history of urinary (tract) infections; Z88.1 Allergy status to other antibiotic agents; Z88.8 Allergy status to other drugs, medicaments and biological substances; Z90.49 Acquired absence of other specified parts of digestive tract; Z91.041 Radiographic dye allergy status; Z98.51 Tubal ligation status
CPT/HCPCS: 36415; 71275; 74177; 80053; 81001; 83690; 85025; 96372; 96374; 96375; 96376; 99285; J1100; J1200; J1642; J1885; J2270; J2405; J7030; Q9967

== ENCOUNTER 2025-03-26 13:16 | Emergency (ER) | payer MEDICARE, MEDICAID ==
[~2025-03-26] VITALS: Ht 160 cm; Wt 119.5 kg
[~2025-03-26 13:16] MED LIST changes: +LISI40TA13 PO; -LISI40TA20 PO
[2025-03-26 13:49] VITALS: TEMP 97.9
--- NOTE | 2025-03-26 14:42 | Physician Documentation ---
History of Present Illness ~ Chief Complaint: Flank Pain Stated Complaint: KIDNEY STONES Time Seen by MD: 13:49 Primary Medical Doctor: [facility] Mode of Arrival: POV HPI Patient is seen today with complaints of right-sided flank pain. Patient does admit to previous history of urinary stones or kidney stones. Patient states she was having IVIG few min at [facility] when she was sent to the [facility] ER and was discharged on pain meds due to suspected kidney stones. Patient states over the last few days she has had uncontrollable pain in the right flank and states she was told recently that her kidney stones are very small but she states they do not feel small because they are so painful. Patient states he did have some hematuria yesterday but states her urine is cleared up today. She has no other concern or complaint at this time. Medication Reconciliation Allergies: Coded Allergies: Iodinated Contrast Media (Verified Allergy, Severe, SOB, HIVES, 03/26/25) diatrizoate meglumine (Verified Allergy, Severe, HIVES, SOB, 03/26/25) levofloxacin (Verified Allergy, Intermediate, HIVES, 03/26/25) Uncoded Allergies: IV CONTRAST (Adverse Reaction, Severe, HIVES, SOB, 05/05/11) Scheduled Allopurinol (Allopurinol), 1 TAB PO QAM, (Reported) Amlodipine Besylate (Amlodipine Besylate), 1 TAB PO DAILY, (Reported) Aspirin (Aspirin EC), 1 TAB PO DAILY, (Reported) Atorvastatin Calcium (Atorvastatin Calcium), 1 TAB PO DAILY, (Reported) Cholecalciferol (Vitamin D3) (Vitamin D3), 1 TAB PO DAILY, (Reported) Gabapentin (Gabapentin), 1 CAP PO TID, (Reported) Lisinopril* (Lisinopril*), 1 TAB PO QAM, (Reported) Siponimod (Mayzent), 1 TAB PO DAILY, (Reported) Scheduled PRN Lorazepam (Ativan), 1 MG PO DAILY PRN for IVIG TREATMENT, (Reported) Oxycodone Hcl/Acetaminophen (Oxycodone-Acetaminophen 10-325), 1 TAB PO Q8H PRN for severe pain (7-10) Discontinued Medications Cephalexin Monohydrate (Cephalexin), 1 CAP PO QID Discontinued Reason: patient no longer taking Diroximel Fumarate (Vumerity), 2 CAP PO BID, (Reported) Discontinued Reason: patient no longer taking Hydrocodone Bit/Acetaminophen (Hydrocodon-Acetaminophn 10-325 tablet), 1 EACH PO DAILY PRN for moderate or severe pain 4-10, (Reported) Discontinued Reason: patient no longer taking [tamsulosin capsule], 0.4 MG PO HS Discontinued Reason: patient no longer taking Past Medical History Past Medical History: CVA/TIA/Stroke, Multiple Sclerosis, Hypertension, Kidney Stones, UTI, Lymphoma Past Surgical History: appendectomy, tubal ligation, other Other Past Surgical History: Lithotripsy Other Past Family History: Reviewed, noncontribturoy Alcohol Use: None Drug Use: none Lives with: Spouse Lives In: Home Occupation: unemployed Review of Systems Constitutional: Denies: chills, fever, weakness Eyes: Denies: pain, blurred vision ENT: Denies: ear pain, nose pain, throat pain, mouth pain Respiratory: Denies: cough, shortness of breath Cardiovascular: Denies: chest pain, palpitations Gastrointestinal: Denies: abdominal pain, nausea, vomiting Genitourinary: Denies: burning, dysuria Female Genitalia: Denies: vaginal discharge, pelvic pain Neurological: Denies: headache, dizziness Musculoskeletal: Denies: pain, swelling Integumentary: Denies: rash, lesions Allergic/Immunologic: Denies: hives, itching Hematologic/Lymphatic: Denies: no symptoms reported Psychiatric: Denies: depression, anxiety Physical Exam Vital Signs: Temperature: 97.9, Source: Temporal, Heart Rate: 72, Respiratory Rate: 20, BP: 170/107, Pulse Oximetry: 98, Weight: 119.550 Physical Exam General: Awake and Alert, no acute distress. HEENT: Conjunctiva pink, Sclera clear, Mucus Membranes moist. Neck: Supple without masses and tenderness. Resp: Unlabored. Lungs clear to auscultation bilaterally. Heart: Regular Rate and rhythm, normal S1 and S2 without murmur, rub or gallop. Abdomen: Soft and non tender no organomegaly Musculoskeletal: Patient on exam does have significant tenderness to palpation of the paraspinal muscles on the right side of her lumbar spine. I do not appreciate any significant CVA tenderness on the right side. Patient has decreased range of motion of the lumbar spine in all planes of motion. Patient is neurovascularly intact of the bilateral lower extremities. Function and strength intact distally. Extremities: No cyanosis,clubbing or edema. Skin: Warm and Dry. Progress Results/Orders Results/Orders Orders - KARLA MEZA PAC Cult Urine + [address] (03/26/25 16:20) Page Hospitalist (03/26/25 17:34) Fill Out Med Reconciliation (03/26/25 17:34) Completed Orders - KARLA MEZA PAC Hcg, Ur Ql (03/26/25 14:05) Cbc/Diff (03/26/25 14:05) BMP (03/26/25 14:05) Lipase (03/26/25 14:05) CMP (03/26/25 14:05) Morphine 4mg/Ml Inj. (Morphine Inj.) (03/26/25 14:36) Ondansetron Inj. (Zofran 4mg/2ml Vial) (03/26/25 14:36) Ua W/Microscopic, Cult If Ind (03/26/25 15:51) Ceftriaxone/E1b-Hewwfbbg 1gm (Rocephin 1 (03/26/25 16:34) Acetaminophen 1,000mg/100ml Iv (Ofirmev (03/26/25 17:49) Ketorolac Trometh 30mg/Ml Vial (Toradol (03/26/25 17:49) Baclofen Tablet (Lioresal Tablet) (03/26/25 17:49) Medications Received in ER Medications (Trade) Dose Ordered Sig/Talha Route PRN Reason Start Time Stop Time Status Last Admin Dose Admin (morphine inj.) 4 mg ONCE STAT IV 03/26/25 14:36 03/26/25 14:41 DC 03/26/25 14:48 4 MG (Zofran 4mg/2ml vial) 4 mg ONCE STAT IV 03/26/25 14:36 03/26/25 14:41 DC 03/26/25 14:49 4 MG Ceftriaxone Sodium 50 ml @ 100 mls/hr ONCE STAT IV 03/26/25 16:34 03/26/25 17:03 DC 03/26/25 17:07 100 MLS/HR Acetaminophen 100 ml @ 400 mls/hr ONCE STAT IV 03/26/25 17:49 03/26/25 18:03 DC 03/26/25 18:46 400 MLS/HR (Toradol inj. 30mg/ml) 30 mg ONCE STAT IV 03/26/25 17:49 03/26/25 17:55 DC 03/26/25 18:45 30 MG (Lioresal tablet) 10 mg ONCE STAT PO 03/26/25 17:49 03/26/25 17:52 DC 03/26/25 18:44 10 MG Vital Signs 03/26/25 03/26/25 03/26/25 03/26/25 13:49 14:01 14:48 15:55 Temp 97.9 Pulse 72 62 Resp 18 20 18 16 B/P (MAP) 170/107 161/89 (113) Pulse Ox 98 96 O2 Flow Rate 0 03/26/25 03/26/25 03/26/25 15:57 17:26 18:58 Pulse 59 60 Resp 18 16 18 B/P (MAP) 161/89 (113) 138/92 (107) Pulse Ox 97 96 O2 Flow Rate 0 Laboratory Tests Test 03/26/25 14:44 03/26/25 15:51 White Blood Count 8.9 Red Blood Count 5.22 Hemoglobin 16.0 Hematocrit 46.7 H Mean Corpuscular Volume 89.6 Mean Corpuscular Hemoglobin 30.7 Mean Corpuscular Hemoglobin Concent 34.3 Red Cell Distribution Width 14.2 Platelet Count 228 Mean Platelet Volume 9.6 Neutrophils (%) (Auto) 82.2 H Lymphocytes (%) (Auto) 4.6 L Monocytes (%) (Auto) 12.5 H Eosinophils (%) (Auto) 0.4 Basophils (%) (Auto) 0.3 Neutrophils # (Auto) 7.3 Lymphocytes # (Auto) 0.4 L Monocytes # (Auto) 1.1 H Eosinophils # (Auto) 0.0 Basophils # (Auto) 0.0 CBC Comment Sodium Level 138 Potassium Level 3.7 Chloride Level 103 Carbon Dioxide Level 27.6 Anion Gap 7 L Blood Urea Nitrogen 18 Creatinine 0.75 Estimated GFR/1.73 m2 79 BUN/Creatinine Ratio 24.0 H Glucose Level 101 Calcium Level 9.8 Total Bilirubin 0.6 Aspartate Amino Transf (AST/SGOT) 21 Alanine Aminotransferase (ALT/SGPT) 37 Alkaline Phosphatase 112 Total Protein 7.5 Albumin 3.4 Globulin 4.1 Albumin/Globulin Ratio 0.8 L Lipase 42 Chemistry Comments Urine Specimen Description Voided Urine Color Yellow Urine Clarity Slightly cloudy Urine pH 6.0 Urine Specific [place] 1.025 Urine Protein Negative Urine Glucose (UA) Negative Urine Ketones Negative Urine Occult Blood Negative Urine Nitrite Positive H Urine Bilirubin Negative Urine Urobilinogen 0.2 Urine Leukocyte Esterase Negative Urine RBC 0-2 Urine WBC 10-20 H Urine Squamous Epithelial Cells Few Urine Bacteria 4+ Urine Culture Indicated Indicated Volume Urine Centrifuged 10 ml Urine HCG, Qualitative Negative Urine Comment Microbiology Date/Time Source Procedure Growth Status 03/26/25 16:20 Urine Voided Urine Culture - Preliminary Culture received. Resulted Medical Decision Making Findings Patient is seen today with complaints of right-sided flank pain. Patient does admit to previous history of urinary stones or kidney stones. Patient states she was having IVIG few min at [facility] when she was sent to the [facility] ER and was discharged on pain meds due to suspected kidney stones. Patient states over the last few days she has had uncontrollable pain in the right flank and states she was told recently that her kidney stones are very small but she states they do not feel small because they are so painful. Patient states he did have some hematuria yesterday but states her urine is cleared up today. She has no other concern or complaint at this time. Patient's labs did show positive nitrites on urinalysis and was sent for culture. Patient's blood work otherwise was largely unremarkable. Given patient's history and physical exam findings, I feel pyelonephritis is unlikely given her recent CT scan a day or two ago that showed no signs of pyelonephritis and showed nonobstructing stones. Also patient likely has significant muscle spasm of the right lower lumbar spine. I did consult with the hospitalist and hospitalist felt there was no admittable diagnosis and declined to speak with the patient today. Prescription of Keflex 500 mg one tab q.i.d. for seven days sent to patient's pharmacy. Patient has had a very elevated amount of CT scans performed over the last 10 years or so and also had recent CT scans so CT scan imaging was not performed today. Patient does have history of significant intractable pain turning or kidney stones. Departure Disposition: HOME / SELF CARE / HOMELESS Impression: Primary Impression: Acute urinary tract infection Additional Impressions: Kidney stone Low back pain Qualified Codes: M54.50 - Low back pain, unspecified Muscle spasm Condition: Improved Discharge Instructions: Kidney Stones Additional Instructions: Prescription of Keflex 500 mg one tab every 6 hours for seven days sent to [facility] pharmacy. Prescription of Flomax one tab once a day also sent to patient's pharmacy. Prescription of [place] 10/325 mg, one tab 3 times a day for seven days sent to patient's pharmacy as well. Prescription of methocarbamol 750 mg one tab 3 times a day for seven days sent to patient's pharmacy. Patient will return to ED with any worsening, concerning or changing symptoms. I strongly advised patient follow up with primary care in 3-5 days if no better as needed sooner. Patient recommended to continue physical therapy for low back pain. Referrals: NO PRIMARY CARE PROVIDER (PCP) Prescriptions Methocarbamol (Methocarbamol) 750 Mg Tablet 1 TAB PO Q8H for 7 Days, #21 TAB 0 Refills Prov: KARLA MEZA 03/26/25 Hydrocodone Bit/Acetaminophen (Hydrocodone-Apap 10-325 Tablet) 10mg/325mg Tablet 1 TAB PO TID PRN PRN for pain for 7 Days, #21 TAB Prov: KARLA MEZA 03/26/25 Tamsulosin Hcl* (Flomax*) 0.4 Mg Cap.sr.24h 1 CAP PO DAILY for 10 Days, #10 CAP Prov: KARLA MEZA 03/26/25 Cephalexin*Monohydrate* (Keflex*) 500 Mg Capsule 1 CAP PO Q6H for 7 Days, #28 CAP Prov: KARLA MEZA 03/26/25 Signature Scribe Signature: No scribe Attestation: No scribe KARLA MEZA Mar 26, 2025 14:42
[2025-03-26] MEDS: morphine 4 MG/ML inj SYRINge IV STA (14:48)
[2025-03-26] MEDS: ondansetron/PF 4mg/2ml inj IV STA (14:49)
[2025-03-26 14:54] LABS: MEAN PLATELET VOLUME 9.6 FL (7.4-10.4); RED CELL DISTRIBUTION WIDTH 14.2 % (11.5-14.5)
[2025-03-26 15:11] LABS: CREATININE 0.75 MG/DL (0.40-0.90); TOTAL CARBON DIOXIDE 27.6 MMOL/L (24-32); eCRCL 68 ML/MIN; eGFR 79 ML/MIN
[2025-03-26 16:09] LABS: LEUKOCYTE ESTERASE ,URINE NEGATIVE (Neg); NITRITES, URINE POSITIVE (Neg); OCCULT BLOOD,URINE NEGATIVE (Neg)
[2025-03-26 16:10] LABS: URINE HCG NEGATIVE (NEG)
[2025-03-26 16:16] LABS: UA COLLECTION TYPE VOIDED
[2025-03-26 16:19] LABS: SQUAMOUS EPITHELIAL CELL,UR FEW /LPF (FEW)
[2025-03-26] MEDS: CefTRIAXone/D5W-Rocephin 1gm 50 ML IV STA (17:07)
[2025-03-26] MEDS: ketorolac trometh 30MG/ML vial 30 MG/ML VIAL IV STA (18:45)
[2025-03-26] MEDS: acetaminophen 1,000mg/100ml IV 100 ML IV STA (18:46)
[2025-03-26] MEDS ORDERED: GABA-535 PO (18:50)
[2025-03-26] MEDS ORDERED: SIPO2TAB PO (18:50)
[2025-03-26] MEDS ORDERED: CEPH-585 PO (19:41)
[2025-03-26] MEDS ORDERED: HYDR-3973 PO (20:08)
[2025-03-26] MEDS ORDERED: TAMS-55 PO (20:08)
[2025-03-26] MEDS ORDERED: METH-798 PO (20:11)
[2025-03-26 21:12] VITALS: BP 136/88; PULSE 68; RESP 16; O2SAT 98
== END 2025-03-26 21:16 | disposition home or self-care (01) ==
LOC: ER 13:17
DX: N39.0 Urinary tract infection, site not specified (principal); N20.0 Calculus of kidney; M54.50 Low back pain, unspecified; M62.838 Other muscle spasm; G35 Multiple sclerosis; I10 Essential (primary) hypertension; Z86.73 Personal history of transient ischemic attack (TIA), and cerebral infarction without residual deficits; Z88.1 Allergy status to other antibiotic agents; Z88.8 Allergy status to other drugs, medicaments and biological substances; Z90.49 Acquired absence of other specified parts of digestive tract; Z91.041 Radiographic dye allergy status; Z98.51 Tubal ligation status
CPT/HCPCS: 36415; 80053; 81001; 81025; 83690; 85025; 87088; 96365; 96366; 96368; 96375; 99285; J0131; J0696; J1885; J2270; J2405; 87077; 87186

== ENCOUNTER 2025-03-27 13:37 | Inpatient (IN) | payer MEDICARE, MEDICAID ==
[~2025-03-27] VITALS: Ht 160 cm; Wt 121.8 kg
[~2025-03-27 13:37] MED LIST changes: +CEPH-585 PO; +GABA-535 PO; +HYDR-3973 PO; -LISI40TA13 PO; +LISI40TA20 PO; +METH-798 PO; +SIPO2TAB PO; +TAMS-55 PO
--- NOTE | 2025-03-27 14:49 | Physician Documentation ---
History of Present Illness ~ Chief Complaint: Flank Pain Stated Complaint: KIDNEY STONES Time Seen by MD: 14:33 Primary Medical Doctor: [facility] Source: patient Mode of Arrival: POV Exam Limitations: no limitations HPI Chief Complaint: Right lower quadrant abdominal pain and flank pain Caveat: None Independent Historians: None History of Present Illness: Patient is a 60-year-old woman who comes in complaining of severe right lower flank pain and right lower quadrant abdominal pain. Patient was seen here two days ago for the same and found to have kidney stones. Patient states that she was prescribed Flomax and Keflex for a coexisting urinary tract infection and [place]. However [facility] pharmacy would not fill her [place]. Patient isn't on chronic pain medications. [facility] did not give a reason for not feeling the prescription. Patient has had chills but no known fever. She has had associated nausea and vomiting. Patient denies any dysuria urgency or frequency. MEDICAL RECORDS REVIEW: PATIENT HAS HAD AN ER VISIT EVERY DAY FOR THE LAST FOUR DAYS FOR THE SAME PAIN. PATIENT'S LAST CT SCAN WAS THE 1ST ER VISIT ON MARCH 23. THERE WERE NO SIGNIFICANT FINDINGS EXCEPT FOR SOME LEFT LOWER LOBE CONSOLIDATION AND A VERY TINY NONOBSTRUCTIVE RIGHT KIDNEY STONE. Review of systems: All systems were reviewed and are negative except for what is indicated in the history of present illness. Past Medical History: Kidney stones Past Surgical History: Urological procedures including ureteral stent by Dr. Hayes Social History: No tobacco use, no alcohol use, no drug use Medications: Reviewed as documented Nursing Notes Allergies: Reviewed as documented in Nursing Notes Medication Reconciliation Allergies: Coded Allergies: Iodinated Contrast Media (Verified Allergy, Severe, SOB, HIVES, 03/27/25) diatrizoate meglumine (Verified Allergy, Severe, HIVES, SOB, 03/27/25) levofloxacin (Verified Allergy, Intermediate, HIVES, 03/27/25) Uncoded Allergies: IV CONTRAST (Adverse Reaction, Severe, HIVES, SOB, 05/05/11) Scheduled Allopurinol (Allopurinol), 1 TAB PO QAM, (Reported) Amlodipine Besylate (Amlodipine Besylate), 1 TAB PO DAILY, (Reported) Aspirin (Aspirin EC), 1 TAB PO DAILY, (Reported) Atorvastatin Calcium (Atorvastatin Calcium), 1 TAB PO DAILY, (Reported) Cholecalciferol (Vitamin D3) (Vitamin D3), 1 TAB PO DAILY, (Reported) Gabapentin (Gabapentin), 1 CAP PO TID, (Reported) Lisinopril* (Lisinopril*), 1 TAB PO QAM, (Reported) Methocarbamol (Methocarbamol), 1 TAB PO Q8H Siponimod (Mayzent), 1 TAB PO DAILY, (Reported) Tamsulosin Hcl* (Flomax*), 1 CAP PO DAILY Scheduled PRN Hydrocodone Bit/Acetaminophen (Hydrocodone-Apap 10-325 Tablet), 1 TAB PO TID PRN PRN for pain Lorazepam (Ativan), 1 MG PO DAILY PRN for IVIG TREATMENT, (Reported) Oxycodone Hcl/Acetaminophen (Oxycodone-Acetaminophen 10-325), 1 TAB PO Q8H PRN for severe pain (7-10) Discontinued Medications Cephalexin Monohydrate (Cephalexin), 1 CAP PO QID Discontinued Reason: patient no longer taking Cephalexin*Monohydrate* (Keflex*), 1 CAP PO Q6H Diroximel Fumarate (Vumerity), 2 CAP PO BID, (Reported) Discontinued Reason: patient no longer taking Hydrocodone Bit/Acetaminophen (Hydrocodon-Acetaminophn 10-325 tablet), 1 EACH PO DAILY PRN for moderate or severe pain 4-10, (Reported) Discontinued Reason: patient no longer taking [tamsulosin capsule], 0.4 MG PO HS Discontinued Reason: patient no longer taking Past Medical History Past Medical History: CVA/TIA/Stroke, Multiple Sclerosis, Hypertension, Kidney Stones, UTI, Lymphoma Past Surgical History: appendectomy, tubal ligation, other Other Past Surgical History: Lithotripsy Other Past Family History: Reviewed, noncontribturoy Alcohol Use: None Drug Use: none Lives with: Spouse Lives In: Home Occupation: unemployed Review of Systems All Other Systems at this time: Reviewed and Negative ROS Patient denies any other acute symptoms other than above. All other systems are negative Physical Exam Vital Signs: RN Vital Signs have been reviewed: Yes, Temperature: 97.9, Source: Temporal, Heart Rate: 80, Respiratory Rate: 16, BP: 163/93, Pulse Oximetry: 95, Weight: 121.820 Oxygen Flow Rate: 0 Pulse Oximetry Reflects: adequate oxygenation Physical Exam General Appearance: Moderate distress HEENT: Normal OP, moist oral mucosa, PERRL, EOMI Neck: supple, normal ROM, trachea midline Pulmonary: No respiratory distress, CTA, BS equal Cardiac: RRR, no murmur, rub or gallop, GI: nondistended, soft, right lower quadrant abdominal tenderness, no CVA tenderness, normal bowel sounds, no guarding, no rebound Extremities: normal ROM, no swelling, non-tender Skin: intact, dry, warm, no rashes Neuro: AAOx3, speech is clear, no focal motor weakness Psych: normal affect, good eye contact, no apparent hallucination, normal speech Progress Results/Orders Results/Orders Orders - AMANDA FOWLER MD Monitor (03/27/25 14:53) Saline Lock (03/27/25 14:53) Cult Urine + [address] (03/27/25 16:34) Page Hospitalist (03/27/25 16:52) Fill Out Med Reconciliation (03/27/25 16:52) Completed Orders - AMANDA FOWLER MD Cbc/Diff (03/27/25 14:53) Lipase (03/27/25 14:53) Ondansetron Inj. (Zofran 4mg/2ml Vial) (03/27/25 14:55) Morphine 4mg/Ml Inj. (Morphine Inj.) (03/27/25 14:55) Normal Saline 1000ml (0.9% Sodium Chlori (03/27/25 14:55) BMP (03/27/25 14:53) Nothing By Mouth (03/27/25 Dinner) Fentanyl/Pf (Fentanyl 0.05 Mg/Ml Syringe (03/27/25 16:10) Ua W/Microscopic, Cult If Ind (03/27/25 15:50) Diatr Meglu/Diatrizoate 30ml (Gastrograf (03/27/25 17:10) Vital Signs 03/27/25 03/27/25 03/27/25 03/27/25 13:44 14:24 15:15 16:15 Temp 97.9 Pulse 81 80 Resp 20 16 15 17 B/P (MAP) 140/95 163/93 (116) Pulse Ox 96 95 O2 Flow Rate 0 03/27/25 03/27/25 03/27/25 16:20 16:22 16:30 Temp 97.9 Pulse 67 Resp 17 17 16 B/P (MAP) 161/104 (123) Pulse Ox 95 O2 Flow Rate 0 Laboratory Tests Test 03/27/25 15:04 03/27/25 15:50 White Blood Count 9.3 Red Blood Count 5.11 Hemoglobin 15.8 Hematocrit 45.4 H Mean Corpuscular Volume 88.8 Mean Corpuscular Hemoglobin 30.9 Mean Corpuscular Hemoglobin Concent 34.8 Red Cell Distribution Width 13.9 Platelet Count 215 Mean Platelet Volume 9.8 Neutrophils (%) (Auto) 85.0 H Lymphocytes (%) (Auto) 4.4 L Monocytes (%) (Auto) 9.7 Eosinophils (%) (Auto) 0.4 Basophils (%) (Auto) 0.5 Neutrophils # (Auto) 7.9 H Lymphocytes # (Auto) 0.4 L Monocytes # (Auto) 0.9 Eosinophils # (Auto) 0.0 Basophils # (Auto) 0.0 CBC Comment Sodium Level 141 Potassium Level 4.0 Chloride Level 106 Carbon Dioxide Level 28.3 Anion Gap 7 L Blood Urea Nitrogen 17 Creatinine 0.75 Estimated GFR/1.73 m2 79 BUN/Creatinine Ratio 22.7 H Glucose Level 127 H Calcium Level 10.0 Albumin 3.2 L Lipase 44 Procalcitonin < 0.05 Chemistry Comments Urine Specimen Description Other Urine Color Yellow Urine Clarity Slightly cloudy Urine pH 6.0 Urine Specific [place] 1.020 Urine Protein Negative Urine Glucose (UA) Negative Urine Ketones Negative Urine Occult Blood Negative Urine Nitrite Negative Urine Bilirubin Negative Urine Urobilinogen 1.0 Urine Leukocyte Esterase Negative Urine RBC 0-2 Urine WBC 5-10 H Urine Squamous Epithelial Cells Moderate Urine Transitional Epithelial Cells Few Urine Bacteria Few Urine Mucus Few Urine Culture Indicated Indicated Volume Urine Centrifuged 10 ml Urine Comment Microbiology Date/Time Source Procedure Growth Status 03/27/25 16:34 Urine Other Urine Culture - Preliminary NO GROWTH AFTER 1 DAY Resulted Medical Decision Making Findings Differential diagnosis includes but is not limited to: Pyelonephritis, urinary tract infection, ureteral colic, renal colic, kidney stones, acute appendicitis Laboratory data independent interpretation: CBC: Unremarkable CMP: Unremarkable Urinalysis: Unremarkable, contaminated specimen Emergency department course/medical decision-making: Patient presents with a right lower quadrant abdominal pain and very low right flank pain. Cause for her pain is unknown. CT scan only showed a tiny right kidney stone that was nonobstructive on March 23. This is not the cause of her pain. Cause for her pain has not been identified. Patient is requiring IV morphine for pain relief. Patient has non-Hodgkin's lymphoma and received an IgG treatment last Tuesday. That may explain her unremarkable CBC. Patient definitely has abdominal tenderness but no infection was identified on the CT scan. Patient was diagnosed with a urinary tract infection and was placed on Keflex. Patient's lab work is unremarkable. The urinalysis today is a contaminated specimen but shows no concern for continued urinary tract infection. Cause of t he patient's pain remains unknown. Recommend admission for repeat CT scan with oral and IV contrast. Patient is requiring repeated doses of morphine which does not last long. Patient is given IV fentanyl. Test results, treatment plan and all the above discussed and reviewed with the patient. Cause with the patient's pain is unknown at this time. Consultation/communications: 5:15 p.m.: Case discussed with the hospitalist. Recommend admission for intractable abdominal pain and repeat abdomen and pelvis CT scan with oral and IV contrast. This has been ordered. Departure Disposition: ADMITTED INPATIENT Admitted to Inpatient Unit: to hospitalist Admission Level of Care: Med/Surg Impression: Primary Impression: Intractable abdominal pain Education Educated: Patient Educated regarding: diagnosis, treatment Signature Scribe Signature: No scribe Attestation: No scribe AMANDA FOWLER MD Mar 27, 2025 14:49
[2025-03-27 15:14] LABS: MEAN PLATELET VOLUME 9.8 FL (7.4-10.4); RED CELL DISTRIBUTION WIDTH 13.9 % (11.5-14.5)
[2025-03-27] MEDS: normal saline 1000ML IV soln IVB ONE (15:15)
[2025-03-27] MEDS: morphine 4 MG/ML inj SYRINge IV PRN (15:15)
[2025-03-27] MEDS: ondansetron/PF 4mg/2ml inj IV ONE (15:15)
[2025-03-27 15:26] LABS: CREATININE 0.75 MG/DL (0.40-0.90); TOTAL CARBON DIOXIDE 28.3 MMOL/L (24-32); eCRCL 68 ML/MIN; eGFR 79 ML/MIN
[2025-03-27 16:14] LABS: LEUKOCYTE ESTERASE ,URINE NEGATIVE (Neg); NITRITES, URINE NEGATIVE (Neg); OCCULT BLOOD,URINE NEGATIVE (Neg)
[2025-03-27] MEDS: fentaNYL/PF 50MCG/1 ML 2ML syringe IV ONE (16:15)
[2025-03-27 16:22] LABS: UA COLLECTION TYPE OTHER
[2025-03-27 16:34] LABS: MUCUS STRANDS FEW /LPF (Neg); SQUAMOUS EPITHELIAL CELL,UR MODERATE /LPF (FEW)
[2025-03-27] MEDS ORDERED: magnesium sulf-water 4G/100mL 100 ML IV PRN (17:10)
[2025-03-27] MEDS ORDERED: potassium Cl 40MEQ/1/2NS 520ml 520 ML IV PRN (17:10)
[2025-03-27] MEDS ORDERED: hydrALAZINE 20mg/ml inj. IV PRN (17:10)
[2025-03-27] MEDS ORDERED: HYDROcodone/acetaminophen 5mg/325mg tablet PO PRN (17:10)
[2025-03-27] MEDS ORDERED: diatr meglu/diatrizoate 30ml oral sol.-(3 dose) bottle PO SCH ×2 (17:10→21:00)
[2025-03-27] MEDS ORDERED: ondansetron 4mg rapidly disintigrating tab PO PRN (17:10)
[2025-03-27] MEDS ORDERED: potassium Cl 20 mEq SR tablet PO PRN ×2 (17:10)
[2025-03-27] MEDS ORDERED: magnesium sulf-water 2g/50mL 50 ML IV PRN (17:10)
[2025-03-27] MEDS: normal saline 1000ml 1,000 ML IV SCH (18:06)
--- NOTE | 2025-03-27 18:24 | HISTORY AND PHYSICAL ---
History & Physical Providers to CC ~ History of Present Illness Reason for Admit\Complaint: Intractable abdominal pain History of Present Illness Carmina Norton is a 60-year-old female who presented to the ED 4th times within the past five days with most recent visit being two days ago due to intractable right lower quadrant abdominal pain x 1 week. Patient also reports associated symptoms of nausea without vomiting. Workups including CT abdomen/pelvis w/o contrast and CTA chest/abdomen/pelvis were unremarkable for acute findings. Patient returned to ED today due to intractable right quadrant abdominal pain. Patient denies prior [place]/CAD, CVA, cardiac arrhythmia, DVT/PE, or GIB. Patient denies chest pain, palpitations, shortness of breath, vomiting, diarrhea, constipation, dysuria, fever, chills, loss of consciousness. Patient is to be admitted for further workups and treatment. Allergies: Coded Allergies: Iodinated Contrast Media (Verified Allergy, Severe, SOB, HIVES, 03/27/25) diatrizoate meglumine (Verified Allergy, Severe, HIVES, SOB, 03/27/25) levofloxacin (Verified Allergy, Intermediate, HIVES, 03/27/25) Uncoded Allergies: IV CONTRAST (Adverse Reaction, Severe, HIVES, SOB, 05/05/11) Home Medications Home Medications Active Methocarbamol 750 Mg Tablet 1 Tab PO Q8H 7 Days Hydrocodone-Apap 10-325 Tablet (Acetaminophen/Hydrocodone Bitart) 10mg/325mg Tablet 1 Tab PO TID PRN PRN 7 Days Flomax* (Tamsulosin HCl) 0.4 Mg Cap.sr.24h 1 Cap PO DAILY 10 Days Keflex* (Cephalexin HCl) 500 Mg Capsule 1 Cap PO Q6H 7 Days Oxycodone-Acetaminophen 10-325 (Oxycodone Hcl/Acetaminophen) 1 Each Tablet 1 Tab PO Q8H PRN I accessed the state of [place] [employer] controlled prescription database Cures- on this patient. Reported Gabapentin 400 Mg Capsule 1 Cap PO TID Mayzent (Siponimod) 2 Mg Tablet 1 Tab PO DAILY Aspirin EC (Aspirin) 81 Mg Tablet.dr 1 Tab PO DAILY 30 Days Allopurinol 300 Mg Tablet 1 Tab PO QAM 30 Days Vitamin D3 (Cholecalciferol (Vitamin D3)) 25 Mcg Tablet 1 Tab PO DAILY 30 Days Ativan (Lorazepam) 1 Mg Tablet 1 Mg PO DAILY PRN Lisinopril* (Lisinopril) 40 Mg Tablet 1 Tab PO QAM Atorvastatin Calcium 40 Mg Tablet 1 Tab PO DAILY Amlodipine Besylate 10 Mg Tablet 1 Tab PO DAILY Past Medical History Past Medical History UTI Hypertension Hyperlipidemia Past Surgical History Surgical History Comment Appendectomy Lumbar fusion Past Social History Social History Comment Alcohol: Denies Tobacco: Denies Illicit drug use: Denies Living situation: Lives at home with family ROS ROS Other than positives in HPI, all 14 review of systems are negative Exam Vitals: Vital Signs Date Time Temp Pulse Resp B/P (MAP) Pulse Ox O2 Delivery O2 Flow Rate FiO2 03/27/25 18:06 17 03/27/25 16:30 03/27/25 16:22 97.9 67 95 0 General: A&Ox 3, in acute distress HEENT: Normocephalic, PERRLA Neck: Supple, trachea midline, no JVD Chest: Clear to auscultation bilaterally Cardiovascular: RRR, S1&S2 Abdomen: Tender right upper quadrant and right lower quadrant; negative rebound tenderness Extremities: No cyanosis/clubbing/or edema Central Nervous System: CN II-XII intact, no focal deficits Musculoskeletal: No paraspinal muscle tenderness, no muscle spasm Skin: Warm and intact Diagnostic Data Last Recorded Lab Results: 03/27/25 1504 03/27/25 1504 Additional Plan Assessment & Plan Intractable abdominal pain UTI Nephrolithiasis, nonobstructive -no signs of sepsis on admission, lipase wnl, CT abdomen/pelvis w/o contrast (03/23/25) shows tiny nonobstructive right nephrolithiasis without acute findings, CTA chest/abdomen/pelvis (03/24/25) left lower lobe focal consolidation -follow premedicated CT abd/pelv iv&oral contrast given reported anaphylaxis to contrast, start supportive care, Flomax, Rocephin HTN Hyperlipidemia -continue home lisinopril, amlodipine, statin, pending med rec DVT/VTE prophylaxis: Heparin Code status: Full code I spent a total of 35 minutes discussing Advanced Care Planning measures with the patient. Advance care planning: Discussed with patient the importance of advance care planning in case of emergent situation. We discussed various resuscitative measures/ ACP with the patient at the time of admission. Patient voiced understanding and patient has decided on a full code status Date of Service: Mar 27, 2025 Billing Provider: EDGAR KEANE Common Visit Codes: [id number] INP/OBS CARE (HIGH) Secondary Visit Codes: [id number] CARE PLAN 30 MINUTES EDGAR KEANE Mar 27, 2025 18:24
[2025-03-27] MEDS ORDERED: HYDROmorphone/PF 0.2 MG/ML SYRINGE IV PRN (18:25)
[2025-03-27] MEDS: docusate sod 100mg capsule PO SCH (20:00)
[2025-03-27] MEDS: K and/or MAG REPLACEMENT MC SCH (20:00)
[2025-03-27] MEDS: CefTRIAXone 2gm/D5W 50ml BAG 50 ML IV ONE (20:03)
[2025-03-27] MEDS: HYDROmorphone inj. 0.5 MG/0.5 ML DISP.SYRIN IV PRN (20:13)
[2025-03-27] MEDS: barium sulfate 450ml oral suspension PO ONE (21:12)
[2025-03-27] MEDS: HYDROcodone/acetaminophen 10/325mg tab PO PRN (22:03)
[2025-03-27] MEDS: heparin, porcine 5000 units/ml vial SQ SCH (22:04)
[2025-03-27 22:30] VITALS: BP 159/99; PULSE 69; RESP 18; TEMP 97.5; O2SAT 98
[2025-03-27 22:45] VITALS: RESP 16
[2025-03-28] VITALS (7 sets, daily range): BP systolic 127–141; BP diastolic 56–83; PULSE 60–82; RESP 10–19; TEMP 97.1–97.9; O2SAT 94–98
[2025-03-28 04:42] LABS: MEAN PLATELET VOLUME 10.2 FL (7.4-10.4); RED CELL DISTRIBUTION WIDTH 14.1 % (11.5-14.5)
[2025-03-28 05:00] LABS: CHOL/HDL RATIO 3.7 (0.00-4.99); CREATININE 0.65 MG/DL (0.40-0.90); LDL CHOLESTEROL 95 MG/DL (50-100); TOTAL CARBON DIOXIDE 23.0 MMOL/L (24-32); eCRCL 78 ML/MIN; eGFR > 90 ML/MIN
[2025-03-28] MEDS: barium sulfate 450ml oral suspension PO SCH (07:00)
[2025-03-28] MEDS: CefTRIAXone 2gm/D5W 50ml BAG 50 ML IV SCH (09:17)
--- NOTE | 2025-03-28 11:24 | PROGRESS NOTE- Residence ---
Progress Note - Resident Providers to CC Resident Creating Document: OLESYA LANDA RES ~ Antibiotic Timeout Antibiotic Ordered?: Yes Subjective Patient is seen and examined at the bedside. She is she complains of right lower quadrant abdominal pain that is now better than admission. She denies any urinary symptoms. She denies shortness or breath or chest pain. No other symptoms reported. Objective Vital Signs Date Time Temp Pulse Resp B/P (MAP) Pulse Ox O2 Delivery O2 Flow Rate FiO2 03/28/25 09:21 16 03/28/25 03:27 71 98 25 03/27/25 22:45 Room Air 03/27/25 22:30 97.5 159/99 (119) 03/27/25 16:22 0 Result Diagram: 03/28/2541203/28/25412 General: Morbidly obese. Awake and Alert, no acute distress. HEENT: Conjunctiva pink, Sclera clear, Mucus Membranes moist. Neck: Supple without masses and tenderness. Resp: Unlabored. Lungs clear to auscultation bilaterally. Heart: Regular Rate and rhythm, normal S1 and S2 without murmur, rub or gallop. Abdomen: Abdomen is mildly tender on palpation of the right lower quadrant, no guarding or rebound. Abdomen is soft, bowel sounds present. Extremities: No cyanosis,clubbing or edema. Skin: Warm and Dry. Assessment Assessment This is a 60-year-old female who presented to the ED 4th times within the past five days with most recent visit being two days ago due to intractable right lower quadrant abdominal pain x 1 week. Patient also reports associated symptoms of nausea without vomiting. Workups including CT abdomen/pelvis w/o contrast and CTA chest/abdomen/pelvis were unremarkable for acute findings. Patient returned to ED today due to intractable right quadrant abdominal pain. Patient denies prior [place]/CAD, CVA, cardiac arrhythmia, DVT/PE, or GIB. Patient denies chest pain, palpitations, shortness of breath, vomiting, diarrhea, constipation, dysuria, fever, chills, loss of consciousness. Urine cultures was positive for Enterobacter cloacae sensitive to ciprofloxacin, Bactrim and cefepime. Since the patient is allergic to quinolones, she was started on Bactrim q.6 IV. Plan Plan UTI/cystitis associated with persistent abdominal pain, failed ambulatory treatment - Nephrolithiasis, nonobstructive -no signs of sepsis on admission, lipase wnl, CT abdomen/pelvis w/o contrast (03/23/25) shows tiny nonobstructive right nephrolithiasis without acute findings, CTA chest/abdomen/pelvis (03/24/25) left lower lobe focal consolidation - MichelineDenilsontrun 03/28/2025 WBC 9.4, procalcitonin 0.05 Lipase 44, AST 22, ALT 35, alkaline phosphatase 118, total bilirubin 0.5 Urine culture from 03/26/2025 positive for Enterobacter cloacae sensitive to ciprofloxacin, Bactrim and cefepime Since the patient is allergic to quinolones she was started on Bactrim and IV q.6 Started on p.o. diet today Symptomatic treatment Monitor for new symptoms Left lower lobe pneumonia - community-acquired CTA chest/abdomen/pelvis (03/24/25) left lower lobe focal consolidation No signs of sepsis Continue ceftriaxone Started on azithromycin Multiple sclerosis - not on acute flare Continue Siponimod Hypertension Multiple blood pressures over 140/90 mmHg most likely secondary to pain Continue home lisinopril 40 mg daily and amlodipine 10 mg daily Hyperlipidemia Continue atorvastatin 40 mg daily DVT/VTE prophylaxis: Heparin Code status: Full code Disposition: Continue medical treatment. Addendum ru and rl quadrant pain; upper one due to pneumonia? has some cough and pain seems pleuritic; ceftriaxone and zithromax Date of Service: Mar 28, 2025 Billing Provider: CLEMENT SONG MD Common Visit Codes: [id number] INP/OBS CARE(HIGH) OLESYA LANDA, AURA Mar 28, 2025 11:24 CLEMENT SONG MD Mar 28, 2025 20:19
[2025-03-28] MEDS: sulfmethoxaz/trimethoprim inj 10 ML in dextrose 5%-water 240 ML IV SCH (14:03)
[2025-03-28] MEDS: mag hydrox/Alum hydrox/simeth 30ml oral suspension PO PRN (14:15)
[2025-03-28] MEDS: ondansetron/PF 4mg/2ml inj IV PRN (16:25)
[2025-03-28] MEDS: HYDROcodone/acetaminophen 10/325mg tab PO PRN (17:43)
[2025-03-28] MEDS ORDERED: ciprofloxacin lact 400MG/200ML 200 ML IV SCH (20:00)
[2025-03-28] MEDS: azithromycin/NS 500mg/250ml 250 ML IV SCH (20:47)
[2025-03-29 05:21] LABS: CREATININE 0.53 MG/DL (0.40-0.90); TOTAL CARBON DIOXIDE 23.2 MMOL/L (24-32); eCRCL 96 ML/MIN; eGFR > 90 ML/MIN
[2025-03-29 06:00] VITALS: BP 131/78; PULSE 77; RESP 18; TEMP 97.4; O2SAT 98
[2025-03-29 06:49] LABS: MEAN PLATELET VOLUME 10.6 FL (7.4-10.4); RED CELL DISTRIBUTION WIDTH 14.1 % (11.5-14.5)
[2025-03-29 08:00] VITALS: RESP 19; O2SAT 96
[2025-03-29] MEDS: SIPONIMOD 2 MG PO SCH (08:00)
[2025-03-29] MEDS: aspirin 81mg, enteric-coated 1 TAB TABLET.DR PO SCH (08:04)
[2025-03-29] MEDS: CefTRIAXone/D5W-Rocephin 1gm 50 ML IV SCH (09:40)
[2025-03-29] MEDS: ondansetron 4mg rapidly disintigrating tab PO PRN (11:21)
--- NOTE | 2025-03-29 15:59 | PROGRESS NOTE- Residence ---
Progress Note - Resident Providers to CC Resident Creating Document: OLESYA LANDA RES ~ Antibiotic Timeout Antibiotic Ordered?: Yes Subjective Patient is seen and examined at the bedside. She states that the abdominal pain is still present without any change. Yesterday she was nauseous but was able to tolerate oral diet. She did not have a bowel movement since admission. She continues to deny any urinary or respiratory symptoms. No other symptoms reported. Objective Vital Signs Date Time Temp Pulse Resp B/P (MAP) Pulse Ox O2 Delivery O2 Flow Rate FiO2 03/29/25 11:50 18 03/29/25 08:05 70 03/29/25 08:00 96 Room Air 03/28/25 22:00 97.9 127/56 (79) 03/28/25 21:32 25 03/28/25 20:10 0.0 Result Diagram: 03/29/25 0615 03/29/25 0438 General: Morbidly obese. Awake and Alert, no acute distress. HEENT: Conjunctiva pink, Sclera clear, Mucus Membranes moist. Neck: Supple without masses and tenderness. Resp: Unlabored. Lungs clear to auscultation bilaterally. Heart: Regular Rate and rhythm, normal S1 and S2 without murmur, rub or gallop. Abdomen: Abdomen is mildly tender on palpation of the right lower quadrant, no guarding or rebound. Abdomen is soft, bowel sounds present. Extremities: No cyanosis,clubbing or edema. Skin: Warm and Dry. Assessment Assessment This is a 60-year-old female who presented to the ED four times within the past five days with most recent visit being two days ago due to intractable right lower quadrant abdominal pain. Patient also reports associated symptoms of nausea without vomiting. Workup including CT abdomen/pelvis w/o contrast was unremarkable for acute intra-abdominal findings. Patient returned to ED due to intractable right quadrant abdominal pain. Patient denies prior [place]/CAD, CVA, cardiac arrhythmia, DVT/PE, or GIB. Patient denies chest pain, palpitations, shortness of breath, vomiting, diarrhea, constipation, dysuria, fever, chills, loss of consciousness. Urine cultures was positive for Enterobacter cloacae sensitive to ciprofloxacin, Bactrim and cefepime. Since the patient is allergic to quinolones, she was started on Bactrim q.6 IV. Despite the lack of respiratory symptoms, she was found to have left lower lobe consolidation, being treated with ceftriaxone and azithromycin. She continues to have right lower quadrant pain and is pending pelvic ultrasound for further evaluation. Plan Plan UTI/cystitis associated with persistent abdominal pain, failed ambulatory treatment - Nephrolithiasis, nonobstructive -no signs of sepsis on admission, lipase wnl, CT abdomen/pelvis w/o contrast (03/23/25) shows tiny nonobstructive right nephrolithiasis without acute findings, CTA chest/abdomen/pelvis (03/24/25) left lower lobe focal consolidation - Flomax, Rocephin 03/28/2025 WBC 9.4, procalcitonin 0.05 Lipase 44, AST 22, ALT 35, alkaline phosphatase 118, total bilirubin 0.5 Urine culture from 03/26/2025 positive for Enterobacter cloacae sensitive to ciprofloxacin, Bactrim and cefepime Since the patient is allergic to quinolones she was started on Bactrim and IV q.6 Started on p.o. diet today Symptomatic treatment Monitor for new symptoms 03/29/2025 Ordered pelvic ultrasound due to persistent right lower quadrant pain No signs of complication Left lower lobe pneumonia - community-acquired CTA chest/abdomen/pelvis (03/24/25) left lower lobe focal consolidation No signs of sepsis Continue ceftriaxone Started on azithromycin 03/29/2025 Continue ceftriaxone day 2 and azithromycin day 1 Multiple sclerosis - not on acute flare Continue Siponimod Hypertension Multiple blood pressures over 140/90 mmHg most likely secondary to pain Continue home lisinopril 40 mg daily and amlodipine 10 mg daily Hyperlipidemia Continue atorvastatin 40 mg daily DVT/VTE prophylaxis: Heparin Code status: Full code Disposition: Continue medical treatment. Anticipated discharge tomorrow. Addendum morbid obesity bmi 47 persistent abd pain of unclear etiol, pain management Date of Service: Mar 29, 2025 Billing Provider: CLEMENT SONG MD Common Visit Codes: [id number] INP/OBS CARE(HIGH) OLESYA LANDA, RES Mar 29, 2025 15:59 CLEMENT SONG MD Mar 29, 2025 20:47
[2025-03-29 17:29] VITALS: BP 116/78; PULSE 70; RESP 15; TEMP 97.5; O2SAT 97
[2025-03-29 18:00] VITALS: BP 124/78; PULSE 73; RESP 16; TEMP 97.1; O2SAT 96
--- NOTE | 2025-03-29 19:54 | RADIOLOGY REPORT ---
INDICATION: Persistent right lower quadrant pain TECHNIQUE: Multiple real-time grayscale transabdominal sonographic images along with color and duplex Doppler of the uterus and ovaries were obtained. COMPARISON: None FINDINGS: Uterus measures approximately 9.3 x 3.2 x 5.9 cm and appears unremarkable. Endometrium measures 3 mm in thickness and appears unremarkable. Right ovary measures approximately 3.1 x 2.9 x 2.7 cm with normal Doppler color flow. Left ovary alexey ures approximately 3.3 x 2.5 x 2 cm with normal Doppler color flow. No evidence of pelvic mass or flu id collection. IMPRESSION: No abnormality demonstrated.
[2025-03-29] MEDS: magnesium hydroxide 30ml (MOM) UD suspension PO PRN (20:00)
[2025-03-29 20:44] VITALS: PULSE 85; RESP 20; O2SAT 95
[2025-03-29 22:00] VITALS: BP 122/74; PULSE 83; RESP 20; TEMP 98.5; O2SAT 95
[2025-03-30] MEDS: mineral oil 133ml enema RC ONE (00:17)
[2025-03-30 06:52] VITALS: BP 127/73
[2025-03-30 07:26] LABS: CREATININE 0.64 MG/DL (0.40-0.90); TOTAL CARBON DIOXIDE 22.9 MMOL/L (24-32); eCRCL 79 ML/MIN; eGFR > 90 ML/MIN
[2025-03-30 09:29] VITALS: RESP 16
[2025-03-30 10:00] VITALS: BP 119/69; PULSE 91; RESP 15; TEMP 97.4; O2SAT 97
[2025-03-30 11:09] LABS: MEAN PLATELET VOLUME 10.7 FL (7.4-10.4); RED CELL DISTRIBUTION WIDTH 13.9 % (11.5-14.5)
[2025-03-30] MEDS: ketorolac trometh 30MG/ML vial 30 MG/ML VIAL IV ONE (13:51)
--- NOTE | 2025-03-30 15:17 | PROGRESS NOTE- Residence ---
Progress Note - Resident Providers to CC Resident Creating Document: NICOL SAHU RES ~ Antibiotic Timeout Antibiotic Ordered?: Yes Subjective Patient is seen and examined at the bedside. She continues to have abdominal pain, more in the right lower quadrant region, also reports back pain. She had one bowel movement yesterday with mineral oil enema, hard pellet-like stools. Pelvic ultrasound did not show any significant findings. CT with oral and IV contrast ordered Objective Vital Signs Date Time Temp Pulse Resp B/P (MAP) Pulse Ox O2 Delivery O2 Flow Rate FiO2 03/30/25 13:51 13 03/30/25 09:30 84 03/30/25 09:29 Room Air 0.0 03/30/25 06:52 127/73 (91) 03/29/25 22:00 98.5 95 03/29/25 20:44 21 Result Diagram: 03/30/25 1030 03/30/25 0636 General: Morbidly obese. Awake and Alert, no acute distress. HEENT: Conjunctiva pink, Sclera clear, Mucus Membranes moist. Neck: Supple without masses and tenderness. Resp: Unlabored. Lungs clear to auscultation bilaterally. Heart: Regular Rate and rhythm, normal S1 and S2 without murmur, rub or gallop. Abdomen: Abdomen is tender on palpation of the right lower quadrant, no guarding or rebound. Abdomen is soft, bowel sounds present. Extremities: No cyanosis,clubbing or edema. Skin: Warm and Dry. Assessment Assessment This is a 60-year-old female with a history of multiple sclerosis, hypertension who presented to the ED four times within the past five days with most recent visit being two days ago due to intractable right lower quadrant abdominal pain associated with nausea without vomiting. Workup including CT abdomen/pelvis w/o contrast was unremarkable for acute intra-abdominal findings. Patient returned to ED due to intractable right quadrant abdominal pain. Despite the lack of respiratory symptoms, she was found to have left lower lobe consolidation, being treated with ceftriaxone and azithromycin. She continues to have right lower quadrant pain, pelvic ultrasound showed no findings. CT with oral and IV contrast ordered for further evaluation. Plan Plan Abdominal pain, cause under evaluation -right lower quadrant pain and tenderness. -Lipase negative -CT abdomen/pelvis w/o contrast (03/23/25) shows tiny nonobstructive right nephrolithiasis without acute findings -pelvic ultrasound showed no significant findings -CT abdomen with oral and IV contrast started, patient has some allergic to contrast, prednisolone ordered. -pain management-morphine and [place] p.r.n. one dose of Toradol given today. Constipation Had one bowel movement after mineral oil enema last night Left lower lobe pneumonia - community-acquired CTA chest/abdomen/pelvis (03/24/25) left lower lobe focal consolidation No signs of sepsis Normal WBC count, procalcitonin. On ceftriaxone and azithromycin-day 4 On IV fluids NS@ 100 mL/hour UTI/cystitis-not present on this admission Nephrolithiasis, nonobstructive Urine analysis-negative Urine culture on 03/26/2025 positive for Enterobacter cloacae sensitive to Cipro, Bactrim, cefepime Repeat urine cultures on 03/27/2025 showed no growth after two days Multiple sclerosis - not on acute flare Continue Siponimod Hypertension Multiple blood pressures over 140/90 mmHg most likely secondary to pain Continue home lisinopril 40 mg daily and amlodipine 10 mg daily Hyperlipidemia Continue atorvastatin 40 mg daily DVT/VTE prophylaxis: Heparin Code status: Full code Disposition: Continue medical treatment. Pending CT abdomen and pelvis with oral and IV contrast. Nicol Sahu M.D PGY2 Date of Service: Mar 30, 2025 Billing Provider: CLEMENT SONG MD Common Visit Codes: [id number] INP/OBS CARE(HIGH) NICOL SAHU, RES Mar 30, 2025 15:17 CLEMENT SONG MD Mar 30, 2025 21:27
[2025-03-30 20:00] VITALS: RESP 16
[2025-03-30] MEDS ORDERED: diatr meglu/diatrizoate 30ml oral sol.-(3 dose) bottle PO SCH (21:00)
[2025-03-30] MEDS: barium sulfate 450ml oral suspension PO ONE (21:20)
[2025-03-31 06:05] LABS: MEAN PLATELET VOLUME 10.9 FL (7.4-10.4); RED CELL DISTRIBUTION WIDTH 14.4 % (11.5-14.5)
[2025-03-31 06:50] LABS: CREATININE 0.57 MG/DL (0.40-0.90); TOTAL CARBON DIOXIDE 22.2 MMOL/L (24-32); eCRCL 89 ML/MIN; eGFR > 90 ML/MIN
[2025-03-31] MEDS: barium sulfate 450ml oral suspension PO SCH (07:03)
[2025-03-31 07:17] VITALS: BP 142/91; PULSE 85; RESP 18; TEMP 98.1; O2SAT 94
[2025-03-31 09:20] VITALS: RESP 16
[2025-03-31 11:00] VITALS: BP 142/97; PULSE 79; RESP 17; TEMP 98.3; O2SAT 96
--- NOTE | 2025-03-31 11:16 | RADIOLOGY REPORT ---
CT CT ABDOMEN PELVIS W/ IV ORAL CONTRAST INDICATION: unresolving abd pain EXAM DATE: 03/31/2025 10:26 AM COMPARISON: CT CT ABDOMEN PELVIS on DOS: 03/23/25, CT ABDOMEN PELVIS on DOS: 10/19/21, CT ABDOMEN PELVI S on DOS: 10/04/21 RADIATION DOSE: CTDIvol: 36 mGy, DLP: 1898 mGy*cm PROCEDURE: Helical CT images were obtained of the abdomen and pelvis with IV contrast Sagittal and co jahaira reconstructions are provided. ORAL CONTRAST: yes ADDITIONAL IMAGES / REFORMATS: None All CT sca ns at this medical facility are performed using dose modulation techniques as appropriate to a perfor med exam including the following: Automated exposure control was utilized; adjustment of the MA and/o r KV according to patient size; and use of iterative reconstruction technique. FINDINGS: LUNG BASE: Left basilar consolidation. LIVER: Normal. GALLBLADDER AND BILIARY TREE: No calcified gallstones. Normal caliber wall. No intra- or extrahepatic biliary ductal dilation. PANCREAS: Normal. SPLEEN: Normal. BOWEL: Oral contrast material reaches the cecum. Moderate colonic fecal burden. Appendix not seen. ADRENALS: Normal. KIDNEYS AND URETER: 3.7 cm left kidney cyst. BLADDER: Normal. REPRODUCTIVE ORGANS: Normal. LYMPH NODES:No lymphadenopathy. PERITONEUM: No ascites or free air. No other fluid collection. VESSELS: Scattered atherosclerotic calcifications are noted. RETROPERITONEUM: Normal. ABDOMINAL WALL: Normal. BONES: Scattered osseous degenerative changes are noted. Lumbar spinal hardware appears intact. IMPRESSION: No acute intraabdominal abnormality. Moderate colonic fecal burden.
[2025-03-31] MEDS: lactulose 20gm/30ml cup PO SCH (11:24)
--- NOTE | 2025-03-31 15:01 | PROGRESS NOTE- Residence ---
Progress Note - Resident Providers to CC Resident Creating Document: NICOL SAHU RES ~ Antibiotic Timeout Antibiotic Ordered?: No Subjective Patient is seen and examined at the bedside. IV contrast did not show any significant findings. Patient had large bowel movement. Likely discharge tomorrow to home with home health. Objective Vital Signs Date Time Temp Pulse Resp B/P (MAP) Pulse Ox O2 Delivery O2 Flow Rate FiO2 03/31/25 14:25 16 03/31/25 11:09 79 03/31/25 11:00 98.3 142/97 (112) 96 Room Air 03/31/25 09:20 0.0 03/29/25 20:44 21 Result Diagram: 03/31/2542703/31/25427 General: Morbidly obese. Awake and Alert, no acute distress. HEENT: Conjunctiva pink, Sclera clear, Mucus Membranes moist. Neck: Supple without masses and tenderness. Resp: Unlabored. Lungs clear to auscultation bilaterally. Heart: Regular Rate and rhythm, normal S1 and S2 without murmur, rub or gallop. Abdomen: Abdomen is tender on palpation of the right lower quadrant, no guarding or rebound. Abdomen is soft, bowel sounds present. Extremities: No cyanosis,clubbing or edema. Skin: Warm and Dry. Assessment Assessment This is a 60-year-old female with a history of multiple sclerosis, hypertension who presented to the ED for intractable right lower quadrant abdominal pain associated with nausea without vomiting. Workup including CT abdomen/pelvis w/o contrast was unremarkable for acute intra-abdominal findings. CT with IV contrast also did not show any significant findings. Despite the lack of respiratory symptoms, she was found to have left lower lobe consolidation completed five day course of ceftriaxone and azithromycin. She will be discharged tomorrow to home with home health Plan Plan Abdominal pain, cause under evaluation -right lower quadrant pain and tenderness. -Lipase negative -CT abdomen/pelvis w/o contrast (03/23/25) shows tiny nonobstructive right nephrolithiasis without acute findings -pelvic ultrasound showed no significant findings -CT abdomen with oral and IV contrast ordered -pain management-morphine and [place] p.r.n. one dose of Toradol given today. 03/31/2025 -CT with IV contrast showed no acute intra-abdominal abnormality. Moderate colonic fecal burden -patient had a large bowel movement today, started lactulose 20 g daily. -continues to have abdominal pain even after the bowel movement. Constipation Had one bowel movement after mineral oil enema last night patient had a large bowel movement today, started lactulose 20 g daily. Left lower lobe pneumonia - community-acquired CTA chest/abdomen/pelvis (03/24/25) left lower lobe focal consolidation No signs of sepsis Normal WBC count, procalcitonin. On ceftriaxone and azithromycin-day 4 On IV fluids NS@ 100 mL/hour 03/31/2025 Completed five day course of ceftriaxone and azithromycin-discontinued. UTI/cystitis-not present on this admission Nephrolithiasis, nonobstructive Urine analysis-negative Urine culture on 03/26/2025 positive for Enterobacter cloacae sensitive to Cipro, Bactrim, cefepime Repeat urine cultures on 03/27/2025 showed no growth after two days Multiple sclerosis - not on acute flare Continue Siponimod Hypertension Continue home lisinopril 40 mg daily and amlodipine 10 mg daily Hyperlipidemia Continue atorvastatin 40 mg daily DVT/VTE prophylaxis: Heparin Code status: Full code Disposition: Discharge to home tomorrow with home health Nicol Sahu M.D PGY2 Date of Service: Mar 31, 2025 Billing Provider: CLEMENT SONG MD Common Visit Codes: [id number] INP/OBS CARE(HIGH) NICOL SAHU, RES Mar 31, 2025 15:01 CLEMENT SONG MD Mar 31, 2025 22:34
[2025-03-31 18:00] VITALS: BP 135/84; PULSE 75; RESP 16; TEMP 98.1; O2SAT 97
[2025-03-31 20:00] VITALS: RESP 16; O2SAT 96
[2025-03-31] MEDS: magnesium hydroxide 30ml (MOM) UD suspension PO SCH (21:09)
[2025-03-31 22:00] VITALS: BP 116/70; PULSE 75; RESP 16; TEMP 98.6; O2SAT 95
[2025-04-01 06:00] VITALS: BP 146/86; PULSE 75; RESP 17; TEMP 97.8; O2SAT 98
[2025-04-01 08:00] VITALS: RESP 19; O2SAT 98
[2025-04-01 11:00] VITALS: BP 123/67; PULSE 101; RESP 17; TEMP 99.6; O2SAT 100
[2025-04-01 11:23] LABS: MEAN PLATELET VOLUME 10.4 FL (7.4-10.4); RED CELL DISTRIBUTION WIDTH 14.3 % (11.5-14.5)
[2025-04-01 11:37] LABS: CREATININE 0.50 MG/DL (0.40-0.90); TOTAL CARBON DIOXIDE 26.7 MMOL/L (24-32); eCRCL 101 ML/MIN; eGFR > 90 ML/MIN
[2025-04-01 14:00] VITALS: RESP 16
[2025-04-01 14:58] VITALS: RESP 16
--- NOTE | 2025-04-01 15:28 | DISCHARGE SUMMARY-Residence ---
Discharge Summary Providers to CC Resident Creating Document: RYAN HENLEY RES ~ Discharge Summary Admission Diagnosis: INTRACTABLE ABDOMINAL PAIN Hospital Course DATE OF ADMISSION: 03/27/2025 DATE OF DISCHARGE: 04/01/2025 As in HPI: Carmina Norton is a 60-year-old female who presented to the ED 4th times within the past five days with most recent visit being two days ago due to intractable right lower quadrant abdominal pain x 1 week. Patient also reports associated symptoms of nausea without vomiting. Workups including CT abdomen/pelvis w/o contrast and CTA chest/abdomen/pelvis were unremarkable for acute findings. Patient returned to ED today due to intractable right quadrant abdominal pain. Patient denies prior AL/CAD, CVA, cardiac arrhythmia, DVT/PE, or GIB. Patient denies chest pain, palpitations, shortness of breath, vomiting, diarrhea, constipation, dysuria, fever, chills, loss of consciousness. Patient is to be admitted for further workups and treatment. During her hospital stay, she was evaluated for abdominal pain. CT abdomen/pelvis without contrast on 03/23/2025 showed tiny nonobstructive right nephrolithiasis without acute findings. CT abdomen with oral and IV contrast on 03/31/2025 showed no acute intra-abdominal abnormality. Moderate colonic fecal burden. Pelvic ultrasound negative for any acute abnormalities. She had multiple bowel movements during her stay. She has a history of recurrent renal stones in the past and multiple stents placement and lithotripsy done bilaterally. States that her recent ureteral stent was about an year back in his unsure which side it was. Today, she is still complains of right lumbar region and lower quadrant pain but agreed to go home on p.o. pain medications. Rest of the lab work did not show any significant abnormal findings. Vitals stable. Today, she is stable for discharge back to home. General: Alert and oriented x 4 HEENT: Normocephalic and atraumatic. Pupils equal round and reactive to light and accommodation. Extraocular movements intact. Oral and nasal mucosa moist Neck: Trachea is in midline. No masses or JVD Lungs: Bilateral normal breath sounds. No crackles, rhonchi or wheezes Heart: Regular rate and rhythm. S1-S2 normal. No rubs or murmurs Abdomen: Soft, and nondistended. Normoactive bowel sounds. Mild tenderness in the right lower quadrant, lumbar region and right lower flank pain. No bilateral costovertebral angle tenderness SENIOR PATIENT ACCOUNT REPRESENTATIVE: No gross sensory or motor abnormalities Extremities: No cyanosis, clubbing or edema Skin: Warm and dry Advised to follow up with the urologist and PCP within 1-2 weeks after discharge. Encouraged p.o. oral fluids-about 2.5 L fluid in a day Ryan Henley MD Internal Medicine Resident, PGY 3 Discharge Diagnosis\Comment: Right lower quadrant abdominal pain likely due to nephrolithiasis Multiple sclerosis-no acute flare Hypertension Operations\Procedures: None Consultants: None Complications: None Condition on DC: Stable Continued Medications: Allopurinol (Allopurinol) 300 Mg Tablet 1 TAB PO QAM for 30 Days, #30 TAB Amlodipine Besylate (Amlodipine Besylate) 10 Mg Tablet 1 TAB PO DAILY Aspirin (Aspirin EC) 81 Mg Tablet.dr 1 TAB PO DAILY for 30 Days, #30 TAB Atorvastatin Calcium (Atorvastatin Calcium) 40 Mg Tablet 1 TAB PO DAILY Cholecalciferol (Vitamin D3) (Vitamin D3) 25 Mcg Tablet 1 TAB PO DAILY for 30 Days, #30 TAB 0 Refills Gabapentin (Gabapentin) 400 Mg Capsule 1 CAP PO TID Hydrocodone Bit/Acetaminophen (Hydrocodone-Apap 10-325 Tablet) 10mg/325mg Tablet 1 TAB PO TID PRN PRN for pain for 7 Days, #21 TAB Lisinopril* (Lisinopril*) 40 Mg Tablet 1 TAB PO QAM Methocarbamol (Methocarbamol) 750 Mg Tablet 1 TAB PO Q8H for 7 Days, #21 TAB 0 Refills Siponimod (Mayzent) 2 Mg Tablet 1 TAB PO DAILY Tamsulosin Hcl* (Flomax*) 0.4 Mg Cap.sr.24h 1 CAP PO DAILY for 10 Days, #10 CAP Discontinued Medications: Lorazepam (Ativan) 1 Mg Tablet 1 MG PO DAILY PRN for IVIG TREATMENT Oxycodone Hcl/Acetaminophen (Oxycodone-Acetaminophen 10-325) 1 Each Tablet 1 TAB PO Q8H PRN for severe pain (7-10), #12 TAB I accessed the [facility] [employer] controlled prescription database Cures- on this patient. Discharge Summary: As above *Problems/Diagnosis: (1) Abdominal Pain Status: Acute Total Time Spent on D/C: > 30 Minutes Date of Service: Apr 01, 2025 Billing Provider: CLEMENT SONG MD Common Visit Codes: 67148-GRS/OBS DISCH DAY >30min RYAN HENLEY RES Apr 01, 2025 15:26 CLEMENT SONG MD Apr 01, 2025 20:48
== END 2025-04-01 15:30 | disposition home or self-care (01) | DRG 693 ==
LOC: ER 13:38 → ED HOLD 17:14 → SUR 3N 22:35
PROVIDERS: ADMIT Internal Medicine; ATTEND Internal Medicine
PROC: 5A09357 Assistance with Respiratory Ventilation, Less than 24 Consecutive Hours, Continuous Positive Airway Pressure (ICD-10-PCS; 2025-03-28)
PROC: BW211ZZ Computerized Tomography (CT Scan) of Abdomen and Pelvis using Low Osmolar Contrast (ICD-10-PCS; principal; 2025-03-31)
DX: N20.0 Calculus of kidney (principal); J15.69 Pneumonia due to other Gram-negative bacteria; Z68.42 Body mass index [BMI] 45.0-49.9, adult; N39.0 Urinary tract infection, site not specified; K59.00 Constipation, unspecified; E66.01 Morbid (severe) obesity due to excess calories; E78.5 Hyperlipidemia, unspecified; G35 Multiple sclerosis; I10 Essential (primary) hypertension; Z85.72 Personal history of non-Hodgkin lymphomas; Z88.1 Allergy status to other antibiotic agents; Z90.49 Acquired absence of other specified parts of digestive tract; Z91.041 Radiographic dye allergy status; Z56.0 Unemployment, unspecified; Z86.73 Personal history of transient ischemic attack (TIA), and cerebral infarction without residual deficits; Y92.89 Other specified places as the place of occurrence of the external cause
CPT/HCPCS: 36415; 71275; 74177; 76856; 80048; 80053; 80061; 81001; 81025; 83036; 83690; 83735; 84145; 85025; 87077; 87081; 87088; 87186; 93976; 94660; 94760; 96365; 96366; 96368; 96372; 96374; 96375; 96376; 99285; A4615; G0378; J0131; J0456; J0696; J1100; J1171; J1200; J1642; J1644; J1885; J2270; J2405; J3010; J3490; J7030; J7060; J7512; Q9967

== ENCOUNTER 2025-07-05 15:02 | Emergency (ER) | payer MEDICARE, MEDICAID ==
[~2025-07-05] VITALS: Ht 160 cm; Wt 121.1 kg
[~2025-07-05 15:02] MED LIST changes: -ATI1T PO; -CEPH-585 PO; -CEPH500C2 PO; -DIRO231C2 PO; -HYDR-3972 PO; -HYDR-3973 PO; +OXYC-150 PO; -OXYC1TAB17 PO; -TAMS-55 PO; -tamsulosin capsule PO
[2025-07-05 15:21] VITALS: BP 150/101; PULSE 92; RESP 16; TEMP 98.3; O2SAT 97
--- NOTE | 2025-07-05 15:32 | Physician Documentation ---
History of Present Illness ~ Chief Complaint: Flank Pain Stated Complaint: KIDNEY PAIN Time Seen by MD: 15:27 Primary Medical Doctor: [employer] Source: patient Mode of Arrival: POV Exam Limitations: no limitations HPI 60-year-old female with history of kidney stones believe she is passing a kidney stone complaining of right flank pain x2 days. Currently not on medications for kidney stones. Last kidney stone approximately 6 months ago. Patient used to see Dr. Lopez her urologist has not seen a urologist in over a year. Medication Reconciliation Allergies: Coded Allergies: Iodinated Contrast Media (Verified Allergy, Severe, SOB, HIVES, 07/05/25) diatrizoate meglumine (Verified Allergy, Severe, HIVES, SOB, 07/05/25) levofloxacin (Verified Allergy, Intermediate, HIVES, 07/05/25) Uncoded Allergies: IV CONTRAST (Adverse Reaction, Severe, HIVES, SOB, 05/05/11) Scheduled Allopurinol (Allopurinol), 1 TAB PO QAM, (Reported) Amlodipine Besylate (Amlodipine Besylate), 1 TAB PO DAILY, (Reported) Aspirin (Aspirin EC), 1 TAB PO DAILY, (Reported) Atorvastatin Calcium (Atorvastatin Calcium), 1 TAB PO DAILY, (Reported) Cholecalciferol (Vitamin D3) (Vitamin D3), 1 TAB PO DAILY, (Reported) Gabapentin (Gabapentin), 1 CAP PO TID, (Reported) Lisinopril* (Lisinopril*), 1 TAB PO QAM, (Reported) Methocarbamol (Methocarbamol), 1 TAB PO Q8H Siponimod (Mayzent), 1 TAB PO DAILY, (Reported) Scheduled PRN Oxycodone HCl/Acetaminophen (Percocet 10-325 mg Tablet), 1 TAB PO QID PRN PRN for pain Past Medical History Past Medical History: CVA/TIA/Stroke, Multiple Sclerosis, Hypertension, Kidney Stones, UTI, Lymphoma Past Surgical History: appendectomy, tubal ligation, other Other Past Surgical History: Lithotripsy Other Past Family History: Reviewed, noncontribturoy Alcohol Use: None Drug Use: none Lives with: Spouse Lives In: Home Occupation: unemployed Review of Systems All Other Systems at this time: Reviewed and Negative Genitourinary: Reports: see HPI Physical Exam Vital Signs: RN Vital Signs have been reviewed: Yes, Temperature: 98.3, Source: Temporal, Heart Rate: 92, Respiratory Rate: 16, BP: 150/101, Pulse Oximetry: 97, Weight: 121.100 Oxygen Flow Rate: 0 Physical Exam General: Alert, no apparent distress. HEENT: moist mucous membranes. Neck: Full range of motion. Respiratory: No respiratory distress speaking in full sentences Chest: No accessory muscle use. Cardiovascular: Appears well perfused Neurologic: Oriented x4. Genitourinary: right CVA tenderness no suprapubic tenderness Psychiatric: Normal mood and affect. Skin: Normal color, warm and dry. No edema, no ecchymosis. Progress Results/Orders Results/Orders Orders - OLIVIA HAMILTON MARKETING CONSULTANT Urinalysis, Cult If Indicated (07/05/25 15:29) Hcg, Ur Ql (07/05/25 15:29) Ct Abdomen Pelvis (07/05/25 16:27) Completed Orders - OLIVIA HAMILTON NP Cbc/Diff (07/05/25 15:29) BMP (07/05/25 15:29) Lipase (07/05/25 15:29) CMP (07/05/25 15:29) Ondansetron Inj. (Zofran 4mg/2ml Vial) (07/05/25 15:35) Morphine 4mg/Ml Inj. (Morphine Inj.) (07/05/25 15:35) Normal Saline 1000ml (0.9% Sodium Chlori (07/05/25 15:35) Ct Abdomen Pelvis (07/05/25 16:27) Vital Signs 07/05/25 15:21 Temp 98.3 Pulse 92 Resp 16 B/P (MAP) 150/101 Pulse Ox 97 O2 Flow Rate 0 Laboratory Tests Test 07/05/25 15:51 White Blood Count 4.9 Red Blood Count 5.14 Hemoglobin 15.9 Hematocrit 46.8 H Mean Corpuscular Volume 91.0 Mean Corpuscular Hemoglobin 31.0 Mean Corpuscular Hemoglobin Concent 34.0 Red Cell Distribution Width 14.0 Platelet Count 226 Mean Platelet Volume 9.9 Neutrophils (%) (Auto) 83.5 H Lymphocytes (%) (Auto) 4.6 L Monocytes (%) (Auto) 9.7 Eosinophils (%) (Auto) 1.7 Basophils (%) (Auto) 0.5 Neutrophils # (Auto) 4.1 Lymphocytes # (Auto) 0.2 L Monocytes # (Auto) 0.5 Eosinophils # (Auto) 0.1 Basophils # (Auto) 0.0 CBC Comment Sodium Level 140 Potassium Level 4.1 Chloride Level 108 H Carbon Dioxide Level 25.6 Anion Gap 6 L Blood Urea Nitrogen 12 Creatinine 0.67 Estimated GFR/1.73 m2 90 BUN/Creatinine Ratio 17.9 Glucose Level 106 H Calcium Level 9.9 Total Bilirubin 0.6 Aspartate Amino Transf (AST/SGOT) 26 Alanine Aminotransferase (ALT/SGPT) 41 Alkaline Phosphatase 154 H Total Protein 7.6 Albumin 3.5 Globulin 4.1 Albumin/Globulin Ratio 0.9 L Lipase 32 Chemistry Comments EKG/XRAY/CT/US/VASC/MRI CT : Impression Exam: CT CT ABDOMEN PELVIS History: Kidney stone, right flank pain COMPARISON: CT CT ABDOMEN PELVIS W/ IV ORAL CONTRAST on DOS: 03/31/25, CT CTA CHEST CT ABD PELVIS on DOS: 03/24/25, CT CT ABDOMEN PELVIS on DOS: 03/23/25, CT ABDOMEN PELVIS on DOS: 10/19/21, CT ABDOMEN PELVIS on DOS: 10/04/21 Technique: Multidetector spiral CT of the abdomen and pelvis was performed from lung bases to pubic symphysis without contrast. Axial, coronal and sagittal multiplanar reformats were performed by the technologist on a separate w orkstation. Radiation Dose : 1. Abdomen/Pelvis: CTDIvol 35.85 mGy, DLP 1682.31 mGy*cm. Findings: Lung Bases: No acute or significant lung base finding. Normal heart size. No pleural or pericardial effusion. Liver: The liver is normal in size. No focal lesions. Gallbladder and Biliary Tree: Unremarkable Spleen: Unremarkable Pancreas: Unremarkable. Adrenal Glands: Unremarkable Kidneys: Few tiny nonobstructing right renal calculi. No hydronephrosis. Left midpole renal cortical cysts measuring 3.6 cm. Bladder: Unremarkable Bowel: The stomach is grossly normal in appearance. Small bowel and colon are normal in caliber and distribution. The appendix is not visualized; however, no secondary findings of acute appendicitis identified. Suspect prior appendectomy. Ascites: Absent Lymphadenopathy: No mesenteric, retroperitoneal or periportal lymphadenopathy. Abdominal Wall and Mesentery: Unremarkable. Vasculature: Unremarkable. Pelvic Organs: Unremarkable Musculoskeletal: No aggressive focal bony lesions, acute fractures or dislocation. Posterior decompression and fusion with bilateral rods and pedicle screws extending from L3-L5. Interbody spacers. IMPRESSION: No acute abdominal or pelvic finding. Radiation optimization: All CT scans at this facility use at least one of these dose optimization techniques: automated exposure control mA and/or kV adjustment per patient size (includes targeted exams where dose is matched to clinical indication) or iterative reconstruction. Medical Decision Making Additional information obtaine: old records Findings Patient with a history of kidney stones experiencing right flank pain x2 days. Labs and UA as well as CT to evaluate obstruction, hydronephrosis. Patient eloped Urinary Diff Dx:Considerations: Include: Musculoskeletal pain, Urinary Obstruction, Urolithiasis, Urinary retention, UTI Genital Diff Dx:Considerations: Unlikely: -Complete, - Incomplete, -Inevitable, Ablortion-Missed, -Threatened, Abruptio placentae, Bartholin abscess, Bartholin cyst, Blood loss anemia, Constipation, Cervicitis, Dsymenorrhea, Ectopic , Foreign body, Hormonal, Hidradenitis suppurativa, Intrauterine , Menorrhagia, Menometrorrhagia, Menstrual bleeding, Myomatous uterus, Perianal abscess, Physiologic discharge, Pinworms, PID, Placenta previa, , Precipitous Hct, Trauma, UTI, Vaginitis(osis)-Atrophic, Vaginitis, Vaginitis(osis)-Bacterial, Vaginitis(osis)- Candidal, Vaginitis(osis)-Contact, Vaginitis(osis)-Herpes, Vaginitis(osis)- Trich., Other Departure Time of Disposition: 17:24 Disposition: 07 LEFT AWOL/ELOPED Impression: Primary Impression: Calculus of kidney Condition: Stable Discharge Instructions: Renal Colic, Kidney Stones Referrals: NO PRIMARY CARE PROVIDER (PCP) Education Educated: Patient Educated regarding: diagnosis, treatment, need for follow up Signature Scribe Signature: No scribe Attestation: The note accurately reflects work and decisions made by me.Olivia ALVARENGA 07/05/25 15:31 OLIVIA HAMILTON NP Jul 05, 2025 15:32
[2025-07-05] MEDS ORDERED: morphine 4 MG/ML inj SYRINge IV ONE (15:35)
[2025-07-05] MEDS ORDERED: normal saline 1000ML IV soln IVB ONE (15:35)
[2025-07-05] MEDS ORDERED: ondansetron/PF 4mg/2ml inj IV ONE (15:35)
[2025-07-05 16:04] LABS: MEAN PLATELET VOLUME 9.9 FL (7.4-10.4); RED CELL DISTRIBUTION WIDTH 14.0 % (11.5-14.5)
[2025-07-05 16:24] LABS: CREATININE 0.67 MG/DL (0.40-0.90); TOTAL CARBON DIOXIDE 25.6 MMOL/L (24-32); eCRCL 76 ML/MIN; eGFR 90 ML/MIN
--- NOTE | 2025-07-05 16:51 | RADIOLOGY REPORT ---
Exam: CT CT ABDOMEN PELVIS History: Kidney stone, right flank pain COMPARISON: CT CT ABDOMEN PELVIS W/ IV ORAL CONTRAST on DOS: 03/31/25, CT CTA CHEST CT ABD PELVIS on DOS: 03/24/25, CT CT ABDOMEN PELVIS on DOS: 03/23/25, CT ABDOMEN PELVIS on DOS: 10/19/21, CT ABDOMEN PELVIS on DOS: 10/04/21 Technique: Multidetector spiral CT of the abdomen and pelvis was performed from lung bases to pubic symphysis without contrast. Axial, coronal and sagittal multiplanar reformats were performed by the technologist on a separate workstation. Radiation Dose : 1. Abdomen/Pelvis: CTDIvol 35.85 mGy, DLP 1682.31 mGy*cm. Findings: Lung Bases: No acute or significant lung base finding. Normal heart size. No pleural or pericardial effusion. Liver: The liver is normal in size. No focal lesions. Gallbladder and Biliary Tree: Unremarkable Spleen: Unremarkable Pancreas: Unremarkable. Adrenal Glands: Unremarkable Kidneys: Few tiny nonobstructing right renal calculi. No hydronephrosis. Left midpole renal cortical cysts measuring 3.6 cm. Bladder: Unremarkable Bowel: The stomach is grossly normal in appearance. Small bowel and colon are normal in caliber and distribution. The appendix is not visualized; however, no secondary findings of acute appendicitis identified. Suspect prior appendectomy. Ascites: Absent Lymphadenopathy: No mesenteric, retroperitoneal or periportal lymphadenopathy. Abdominal Wall and Mesentery: Unremarkable. Vasculature: Unremarkable. Pelvic Organs: Unremarkable Musculoskeletal: No aggressive focal bony lesions, acute fractures or dislocation. Posterior decompression and fusion with bilateral rods and pedicle screws extending from L3-L5. Interbody spacers. IMPRESSION: No acute abdominal or pelvic finding. Radiation optimization: All CT scans at this facility use at least one of these dose optimization techniques: automated exposure control mA and/or kV adjustment per patient size (includes targeted exams where dose is matched to clinical indication) or iterative reconstruction.
[2025-07-06] MEDS ORDERED: HYDR-3964 PO (09:41)
[2025-07-06] MEDS ORDERED: TAMS-55 PO (09:41)
[2025-07-06] MEDS ORDERED: ONDA-245 PO (09:41)
[2025-07-06] MEDS ORDERED: SULF1TAB45 PO (09:41)
[2025-07-06] MEDS ORDERED: PHEN-824 PO (09:43)
== END 2025-07-05 17:29 | disposition left against medical advice (07) ==
LOC: ER 15:02
DX: N20.0 Calculus of kidney (principal); I10 Essential (primary) hypertension; Z86.73 Personal history of transient ischemic attack (TIA), and cerebral infarction without residual deficits; Z87.442 Personal history of urinary calculi; Z88.1 Allergy status to other antibiotic agents; Z91.041 Radiographic dye allergy status; Z88.8 Allergy status to other drugs, medicaments and biological substances; Z90.49 Acquired absence of other specified parts of digestive tract; Z98.51 Tubal ligation status; Z79.899 Other long term (current) drug therapy; Z79.82 Long term (current) use of aspirin; Z56.0 Unemployment, unspecified
CPT/HCPCS: 36415; 74176; 80053; 83690; 85025; 99284

== ENCOUNTER 2025-07-06 09:28 | Emergency (ER) | payer MEDICARE, MEDICAID ==
[~2025-07-06] VITALS: Ht 160 cm; Wt 121.3 kg
[2025-07-06 09:33] VITALS: BP 144/100; PULSE 89; TEMP 98.3; O2SAT 98
--- NOTE | 2025-07-06 09:37 | Physician Documentation ---
History of Present Illness ~ Stated Complaint: FLANK PAIN Time Seen by MD: 09:44 Primary Medical Doctor: [facility] NEISHA This is a 60-year-old female who was seen in this emergency department yesterday for complaints of right flank pain. She did have a CT scan done as well as labs and a urinalysis. The CT scan returned showing a few faint nonobstructing right renal calculi, no hydronephrosis. Her urinalysis returned showing possible infection. Her kidney function was normal, she had no leukocytosis. She returns today due to severe pain. Reports multiple stones in the past, this is different than her usual. Denies chills or fever, chest pain or shortness of breath. Medication Reconciliation Allergies: Coded Allergies: Iodinated Contrast Media (Verified Allergy, Severe, SOB, HIVES, 07/06/25) diatrizoate meglumine (Verified Allergy, Severe, HIVES, SOB, 07/06/25) levofloxacin (Verified Allergy, Intermediate, HIVES, 07/06/25) Uncoded Allergies: IV CONTRAST (Adverse Reaction, Severe, HIVES, SOB, 05/05/11) Scheduled Allopurinol (Allopurinol), 1 TAB PO QAM, (Reported) Amlodipine Besylate (Amlodipine Besylate), 1 TAB PO DAILY, (Reported) Aspirin (Aspirin EC), 1 TAB PO DAILY, (Reported) Atorvastatin Calcium (Atorvastatin Calcium), 1 TAB PO DAILY, (Reported) Cholecalciferol (Vitamin D3) (Vitamin D3), 1 TAB PO DAILY, (Reported) Gabapentin (Gabapentin), 1 CAP PO TID, (Reported) Lisinopril* (Lisinopril*), 1 TAB PO QAM, (Reported) Methocarbamol (Methocarbamol), 1 TAB PO Q8H Phenazopyridine HCl (Pyridium), 1 TAB PO Q8H Siponimod (Mayzent), 1 TAB PO DAILY, (Reported) Sulfamethoxazole/Trimethoprim (Septra Ds Tab), 1 TAB PO BID Tamsulosin Hcl* (Flomax*), 1 CAP PO DAILY Scheduled PRN Hydrocodone Bit/Acetaminophen (Hydrocodon-Acetaminophen 5-325), 1 TAB PO TID PRN PRN for pain Ondansetron 8mg ODT (Ondansetron Odt), 1 TAB PO TID PRN for nausea/vomiting Oxycodone HCl/Acetaminophen (Percocet 10-325 mg Tablet), 1 TAB PO QID PRN PRN for pain Past Medical History Past Medical History: CVA/TIA/Stroke, Multiple Sclerosis, Hypertension, Kidney Stones, UTI, Lymphoma Past Surgical History: appendectomy, tubal ligation, other Other Past Surgical History: Lithotripsy Other Past Family History: Reviewed, noncontribturoy Alcohol Use: None Drug Use: none Lives with: Spouse Lives In: Home Occupation: unemployed Review of Systems ROS As stated above in the HPI, otherwise all systems are reviewed and negative. Physical Exam Physical Exam General: Alert, mild distress due to pain. HEENT: PERRL, EOMI, no injection, moist mucous membranes. Neck: Full range of motion. Respiratory: Lungs clear, no respiratory distress. Chest: No accessory muscle use. Cardiovascular: Regular rate and rhythm, no murmurs. Gastrointestinal: Soft, nontender, nondistended. Bowels sounds present. Extremities: Normal range of motion, no deformity. Neurologic: Oriented x4. Psychiatric: Normal mood and affect. Skin: Normal color, warm and dry. No edema, no ecchymosis. Progress Progress Note CT scan from 07/05/25 CT : Impression Exam: CT CT ABDOMEN PELVIS History: Kidney stone, right flank pain COMPARISON: CT CT ABDOMEN PELVIS W/ IV ORAL CONTRAST on DOS: 03/31/25, CT CTA CHEST CT ABD PELVIS on DOS: 03/24/25, CT CT ABDOMEN PELVIS on DOS: 03/23/25, CT ABDOMEN PELVIS on DOS: 10/19/21, CT ABDOMEN PELVIS on DOS: 10/04/21 Technique: Multidetector spiral CT of the abdomen and pelvis was performed from lung bases to pubic symphysis without contrast. Axial, coronal and sagittal multiplanar reformats were performed by the technologist on a separate workstation. Radiation Dose : 1. Abdomen/Pelvis: CTDIvol 35.85 mGy, DLP 1682.31 mGy*cm. Findings: Lung Bases: No acute or significant lung base finding. Normal heart size. No pleural or pericardial effusion. Liver: The liver is normal in size. No focal lesions. Gallbladder and Biliary Tree: Unremarkable Spleen: Unremarkable Pancreas: Unremarkable. Adrenal Glands: Unremarkable Kidneys: Few tiny nonobstructing right renal calculi. No hydronephrosis. Left midpole renal cortical cysts measuring 3.6 cm. Bladder: Unremarkable Bowel: The stomach is grossly normal in appearance. Small bowel and colon are normal in caliber and distribution. The appendix is not visualized; however, no secondary findings of acute appendicitis identified. Suspect prior appendectomy. Ascites: Absent Lymphadenopathy: No mesenteric, retroperitoneal or periportal lymphadenopathy. Abdominal Wall and Mesentery: Unremarkable. Vasculature: Unremarkable. Pelvic Organs: Unremarkable Musculoskeletal: No aggressive focal bony lesions, acute fractures or dislocation. Posterior decompression and fusion with bilateral rods and pedicle screws extending from L3-L5. Interbody spacers. IMPRESSION: No acute abdominal or pelvic finding. Radiation optimization: All CT scans at this facility use at least one of these dose optimization techniques: automated exposure control mA and/or kV adjustment per patient size (includes targeted exams where dose is matched to clinical indication) or iterative reconstruction. Results/Orders Results/Orders Completed Orders - FAUSTO CADET NP Ketorolac Trometh 15mg/Ml Vial (Toradol (07/06/25 09:45) Phenazopyridine Tablet (Pyridium Tablet) (07/06/25 09:45) Hydrocodone/Apap 10/325 (Sterling 10/325mg (07/06/25 09:45) Vital Signs 07/06/25 09:33 Temp 98.3 Pulse 89 Resp 18 B/P (MAP) 144/100 Pulse Ox 98 O2 Flow Rate 0 Medical Decision Making Additional information obtaine: old records Findings Patient was seen in this ER yesterday on 07/05/2025 for right flank pain. NEG HCG, UA indicates infection, no obstructing renal stones, hydronephrosis or other abnormalities on CT scan. Normal kidney function, no leukocytosis. Urinary Diff Dx:Considerations: Include: Other Genital Diff Dx:Considerations: Include: Other Additional Comment The patient does not have any obstructing kidney stones. Her pain was thought to be due to urinary tract infection with musculoskeletal strain. No fevers or chills. No leukocytosis on labs done yesterday. She will be treated with Bactrim. She will be given Pyridium and Sterling as needed for pain. She will be given Toradol 15 mg IM along with her 1st dose of Pyridium and hydrocodone in the ER prior to discharge. She is to follow up with the primary care provider or return if worse, especially with fever or worsening of her pain rather than improvement. She may resume her Flomax for the next several days Departure Time of Disposition: 09:39 Disposition: HOME / SELF CARE / HOMELESS Impression: Primary Impression: Acute urinary tract infection Additional Impression: Calculus of kidney Condition: Stable Discharge Instructions: Kidney Stones, Urinary Tract Infection, Adult Additional Instructions: Your CT scan done on 07/05/2025 showed a few faint nonobstructing right renal stones. No hydronephrosis. This means that you do not have an obstruction caused by a kidney stone. Your labs were overall normal, however your urinalysis does seem to indicate that you have an infection. You will be treated for urinary tract infection. Please resume your Flomax for the next few days to encouraged a small stones to pass. Use the hydrocodone as needed for pain. Pyridium for urinary pain, caution that it causes orange urine and can stain light-colored underwear. Take care to stay well hydrated. Take the ondansetron if needed for nausea. Return for intractable pain or fever. Followup with the primary care, return if worse Referrals: NO PRIMARY CARE PROVIDER (PCP) Prescriptions Phenazopyridine HCl (Pyridium) 100 Mg Tablet 1 TAB PO Q8H for urinary discomfort for 2 Days, #6 TAB 0 Refills Prov: FAUSTO CADET NP 07/06/25 Ondansetron 8mg ODT (Ondansetron Odt) 8 Mg Tab.rapdis 1 TAB PO TID PRN for nausea/vomiting, #10 TAB Prov: FAUSTO CADET NP 07/06/25 Hydrocodone Bit/Acetaminophen (Hydrocodon-Acetaminophen 5-325) 5 Mg-325 Mg Tablet 1 TAB PO TID PRN PRN for pain for 5 Days, #15 TAB Prov: FAUSTO CADET NP 07/06/25 Tamsulosin Hcl* (Flomax*) 0.4 Mg Cap.sr.24h 1 CAP PO DAILY, #10 CAP Prov: FAUSTO CADET NP 07/06/25 Sulfamethoxazole/Trimethoprim (Septra Ds Tab) 800 Mg/160 Mg Tablet 1 TAB PO BID for 5 Days, #10 TAB Prov: FAUSTO CADET NP 07/06/25 Education Educated: Patient Educated regarding: diagnosis, treatment, prognosis, need for follow up Signature Scribe Signature: x Attestation: The note accurately reflects work and decisions made by me.Fausto Soto NP 07/06/25 09:47 FAUSTO CADET NP Jul 06, 2025 09:37
[2025-07-06] MEDS ORDERED: HYDR-3964 PO (09:41)
[2025-07-06] MEDS ORDERED: ONDA-245 PO (09:41)
[2025-07-06] MEDS ORDERED: SULF1TAB45 PO (09:41)
[2025-07-06] MEDS ORDERED: TAMS-55 PO (09:41)
[2025-07-06] MEDS ORDERED: PHEN-824 PO (09:43)
[2025-07-06] MEDS: phenazopyridine 100mg tablet PO ONE (10:03)
[2025-07-06] MEDS: ketorolac trometh 15mg/ml vial 15 MG/ML ML IM ONE (10:03)
[2025-07-06] MEDS: HYDROcodone/acetaminophen 10/325mg tab PO ONE ×2 (10:08→10:32)
[2025-07-06 10:32] VITALS: RESP 16
== END 2025-07-06 10:36 | disposition home or self-care (01) ==
LOC: ER 09:29
DX: N39.0 Urinary tract infection, site not specified (principal); N20.0 Calculus of kidney; I10 Essential (primary) hypertension; Z86.73 Personal history of transient ischemic attack (TIA), and cerebral infarction without residual deficits; Z88.1 Allergy status to other antibiotic agents; Z90.49 Acquired absence of other specified parts of digestive tract; Z91.041 Radiographic dye allergy status; Z98.51 Tubal ligation status; Z88.6 Allergy status to analgesic agent; Z87.442 Personal history of urinary calculi; Z88.5 Allergy status to narcotic agent; Z87.440 Personal history of urinary (tract) infections; Z79.899 Other long term (current) drug therapy; Z79.82 Long term (current) use of aspirin; Z56.0 Unemployment, unspecified
CPT/HCPCS: 96372; 99283; J1885

== ENCOUNTER 2025-08-16 13:46 | Emergency (ER) | payer MEDICARE, MEDICAID ==
[~2025-08-16] VITALS: Ht 160 cm; Wt 120.1 kg
[~2025-08-16 13:46] MED LIST changes: +ONDA-245 PO; +PHEN-824 PO
--- NOTE | 2025-08-16 13:54 | Physician Documentation ---
History of Present Illness Chief Complaint: Abdominal Pain Stated Complaint: FLANK PAIN AND COUGH Primary Medical Doctor: [facility] Patient is a very pleasant 60-year-old female that presents to the emergency department for evaluation of cough congestion right upper quadrant pain in abnormal bruising to her abdomen x2 days. Patient reports she has a history of non-Hodgkin's lymphoma that she receives IVIG treatment for monthly. Patient reports she may have had fevers but is unsure no chills nausea vomiting or diarrhea at this time. Patient denies any chest pain shortness of breath chest pressure or radiating chest pain at this time. Medication Reconciliation Allergies: Coded Allergies: Iodinated Contrast Media (Verified Allergy, Severe, SOB, HIVES, 08/16/25) diatrizoate meglumine (Verified Allergy, Severe, HIVES, SOB, 08/16/25) levofloxacin (Verified Allergy, Intermediate, HIVES, 08/16/25) Uncoded Allergies: IV CONTRAST (Adverse Reaction, Severe, HIVES, SOB, 05/05/11) Scheduled Allopurinol (Allopurinol), 1 TAB PO QAM, (Reported) Amlodipine Besylate (Amlodipine Besylate), 1 TAB PO DAILY, (Reported) Aspirin (Aspirin EC), 1 TAB PO DAILY, (Reported) Atorvastatin Calcium (Atorvastatin Calcium), 1 TAB PO DAILY, (Reported) Cholecalciferol (Vitamin D3) (Vitamin D3), 1 TAB PO DAILY, (Reported) Gabapentin (Gabapentin), 1 CAP PO TID, (Reported) Lisinopril* (Lisinopril*), 1 TAB PO QAM, (Reported) Methocarbamol (Methocarbamol), 1 TAB PO Q8H Phenazopyridine HCl (Pyridium), 1 TAB PO Q8H Siponimod (Mayzent), 1 TAB PO DAILY, (Reported) Scheduled PRN Ondansetron 8mg ODT (Ondansetron Odt), 1 TAB PO TID PRN for nausea/vomiting Oxycodone HCl/Acetaminophen (Percocet 10-325 mg Tablet), 1 TAB PO QID PRN PRN for pain Past Medical History Past Medical History: CVA/TIA/Stroke, Multiple Sclerosis, Hypertension, Kidney Stones, UTI, Lymphoma Past Surgical History: appendectomy, tubal ligation, other Other Past Surgical History: Lithotripsy Other Past Family History: Reviewed, noncontribturoy Alcohol Use: None Drug Use: none Lives with: Spouse Lives In: Home Occupation: unemployed Review of Systems ROS As stated above in the HPI, otherwise all systems are reviewed and negative. Physical Exam Vital Signs: Temperature: 99.8, Source: Temporal, Heart Rate: 94, Respiratory Rate: 18, BP: 140/92, Pulse Oximetry: 96, Weight: 120.100 Oxygen Flow Rate: 0 Progress Results/Orders Results/Orders Vital Signs 08/16/25 13:49 Temp 99.8 Pulse 94 Resp 18 B/P (MAP) 140/92 Pulse Ox 96 O2 Flow Rate 0 Departure Referrals: NO PRIMARY CARE PROVIDER (PCP) LUIS EDUARDO LANTIGUAP Aug 16, 2025 13:54
[2025-08-16 14:22] LABS: MEAN PLATELET VOLUME 9.3 FL (7.4-10.4); RED CELL DISTRIBUTION WIDTH 13.6 % (11.5-14.5)
--- NOTE | 2025-08-16 14:41 | Physician Documentation ---
History of Present Illness Chief Complaint: Abdominal Pain Stated Complaint: FLANK PAIN AND COUGH Time Seen by MD: 14:22 Primary Medical Doctor: [facility] conti Mode of Arrival: POV HPI Patient is a very pleasant 60-year-old female that presents to the emergency department for evaluation of cough and congestion (2 days) and right upper q uadrant pain (3 days). Patient reports she has a history of non-Hodgkin's lymphoma that she receives IVIG treatment for monthly. She is also diagnosed with MS and takes Mayzent. Patient reports she may have had fevers but is unsure no chills nausea vomiting or diarrhea at this time. Patient denies any chest pain shortness of breath chest pressure or radiating chest pain at this time. The patient is on her 3rd week of Zepbound (tirzepatide) therapy for weight loss. She has lost 8 lb, so far. Medication Reconciliation Allergies: Coded Allergies: Iodinated Contrast Media (Verified Allergy, Severe, SOB, HIVES, 08/16/25) diatrizoate meglumine (Verified Allergy, Severe, HIVES, SOB, 08/16/25) levofloxacin (Verified Allergy, Intermediate, HIVES, 08/16/25) Uncoded Allergies: IV CONTRAST (Adverse Reaction, Severe, HIVES, SOB, 05/05/11) Scheduled Allopurinol (Allopurinol), 1 TAB PO QAM, (Reported) Amlodipine Besylate (Amlodipine Besylate), 1 TAB PO DAILY, (Reported) Aspirin (Aspirin EC), 1 TAB PO DAILY, (Reported) Atorvastatin Calcium (Atorvastatin Calcium), 1 TAB PO DAILY, (Reported) Cholecalciferol (Vitamin D3) (Vitamin D3), 1 TAB PO DAILY, (Reported) Gabapentin (Gabapentin), 1 CAP PO TID, (Reported) Lisinopril* (Lisinopril*), 1 TAB PO QAM, (Reported) Methocarbamol (Methocarbamol), 1 TAB PO Q8H Phenazopyridine HCl (Pyridium), 1 TAB PO Q8H Siponimod (Mayzent), 1 TAB PO DAILY, (Reported) Scheduled PRN Ondansetron 8mg ODT (Ondansetron Odt), 1 TAB PO TID PRN for nausea/vomiting Oxycodone HCl/Acetaminophen (Percocet 10-325 mg Tablet), 1 TAB PO QID PRN PRN for pain Past Medical History Past Medical History: CVA/TIA/Stroke, Multiple Sclerosis, Hypertension, Kidney Stones, UTI, Lymphoma Past Surgical History: appendectomy, tubal ligation, other Other Past Surgical History: Lithotripsy Other Past Family History: Reviewed, noncontribturoy Alcohol Use: None Drug Use: none Lives with: Spouse Lives In: Home Occupation: unemployed Review of Systems ROS Constitutional: Denies chills, fatigue, fever, weight gain or weight loss. HEENT: Denies hearing loss, sinus pressure or visual changes. Respiratory: Cough. Cardiovascular: Denies chest pain, pain while walking (claudication), edema or palpitations. Gastrointestinal: Right upper quadrant pain. Genitourinary: Denies painful urination (dysuria), excessive amount of urine (polyuria) or urinary frequency. Metabolic/Endocrine: Denies cold intolerance, heat intolerance, excessive thirst (polydipsia) or excessive hunger (polyphagia). Neurological: Denies dizziness, extremity numbness, extremity weakness, headaches, seizures or tremors. Psychiatric: Denies anxiety or depression. Integumentary: Denies breast discharge, breast lump, hives, mole change(s), rash or skin lesion. Musculoskeletal: Denies back pain, joint pain, joint swelling or neck pain. Hematologic: Denies easily bleeding, easily bruises, lymphedema or issues with blood clots. Immunologic: Denies food allergies or seasonal allergies. Physical Exam Vital Signs: Temperature: 99.8, Source: Temporal, Heart Rate: 94, Respiratory Rate: 18, BP: 140/92, Pulse Oximetry: 96, Weight: 120.100 Oxygen Flow Rate: 0 Physical Exam Physical Exam Vitals and nursing note reviewed. Constitutional: General: Patient is awake, alert, oriented x 4 in no acute distress and well appearing. Speech is clear and lucid. Appearance: Obese. Patient is not ill-appearing, toxic-appearing or diaphoretic. HENT: Head: Normocephalic and atraumatic. Mouth/Throat: Mouth: Mucous membranes are moist. Pharynx: Oropharynx is clear. Eyes: General: No scleral icterus. Extraocular Movements: Extraocular movements intact. Pupils: Pupils are equal, round, and reactive to light. Neck: Supple, no Kernig or Brudzinski sign. Cardiovascular: Rate and Rhythm: Normal rate and regular rhythm. Heart sounds: No murmur heard. Pulmonary: Effort: No respiratory distress. Breath sounds: No wheezing, rhonchi or rales. Abdominal: General: There is no distension. Palpations: There is no fluid wave, hepatomegaly or mass. Tenderness: Right upper quadrant tenderness with no rebound or guarding. Musculoskeletal: General: No swelling or deformity. Skin: Coloration: Skin is not jaundiced. Findings: No erythema or rash. Neurological: Mental Status: Patient is alert. Progress Results/Orders Results/Orders Orders - JORDAN PARK MD Ultrasound Of Abdomen (08/16/25 14:32) Chest,Single View (08/16/25 14:34) Vital Signs 08/16/25 08/16/25 13:49 14:18 Temp 99.8 Pulse 94 Resp 18 B/P (MAP) 140/92 Pulse Ox 96 O2 Flow Rate 0 Laboratory Tests Test 08/16/25 14:12 White Blood Count 5.9 Red Blood Count 4.93 Hemoglobin 15.3 Hematocrit 44.6 Mean Corpuscular Volume 90.5 Mean Corpuscular Hemoglobin 31.0 Mean Corpuscular Hemoglobin Concent 34.3 Red Cell Distribution Width 13.6 Platelet Count 158 Mean Platelet Volume 9.3 Neutrophils (%) (Auto) 86.0 H Lymphocytes (%) (Auto) 4.3 L Monocytes (%) (Auto) 9.3 Eosinophils (%) (Auto) 0.2 Basophils (%) (Auto) 0.2 Neutrophils # (Auto) 5.1 Lymphocytes # (Auto) 0.3 L Monocytes # (Auto) 0.5 Eosinophils # (Auto) 0.0 Basophils # (Auto) 0.0 CBC Comment Chemistry Comments Medical Decision Making Additional information obtaine: N/A Findings Ultrasound of the right upper quadrant reveals a normal gallbladder though there is mild hepatomegaly. The patient is morbidly obese though she is on therapy to lose weight. I feel that her positive Ramirez sign is secondary to hepatomegaly. She has a mildly elevated alkaline phosphatase and this may be related to the Zepbound therapy. I am going to give her some Toradol here and advised her to continue with ibuprofen. Differential Dx:Considerations: Cholangitis, Cholelithasis, Constipation, Hepatitis Departure Disposition: HOME / SELF CARE / HOMELESS Impression: Primary Impression: Right upper quadrant pain Condition: Stable Additional Instructions: Continue Zepbound therapy and exercise as much as possible. May take ibuprofen, as needed. Follow-up with your PCP. Return here for worsening symptoms or new/unusual symptoms. It is important to see your doctor or primary care provider. Emergency care may be incomplete without proper follow-up. Symptoms sometimes change or new symptoms might arise after you leave the emergency department. It is important that you call your doctor if you become worse in any way, or return to the emergency department. You are strongly urged to follow-up with your physician to assure complete and thorough care. Please call your doctor's office today, and informed them that you were seen in the emergency department, and that you need to be seen immediately for close follow-up. If you do not have a primary care doctor we encourage you to proactively seek a local physician for close follow-up. Consider local clinics, [facility], or local [facility]. Prior to discharge we spoke at length concerning symptoms that would merit reevaluation, but please return to the emergency department for any symptoms that are concerning to you, and we will be happy to continue your evaluation and treatment. Please note you can always return to the emergency department if you are having difficulty coordinating close follow-up. If medications were prescribed, you should fill them at your local pharmacy immediately and take only as prescribed. Bring your new medications to your doctors follow-up visit to discuss any changes that would be necessary. Please check [employer] for any results you did not receive in the Emergency Department: often we are unable to get all your tests back before you leave, and these tests need to be reviewed by your PCP and yourself. You can also call Medical Records if you are unable to access the internet to see [employer]. Return to the emergency department immediately for worsening chest pain, difficulty breathing, sweating, or other concerning emergent symptoms. Referrals: NO PRIMARY CARE PROVIDER (PCP) Signature Scribe Signature: . Attestation: JORDAN SINGH MD Aug 16, 2025 14:41
[2025-08-16 14:43] LABS: CREATININE 0.67 MG/DL (0.40-0.90); TOTAL CARBON DIOXIDE 23.9 MMOL/L (24-32); eCRCL 76 ML/MIN; eGFR 90 ML/MIN
--- NOTE | 2025-08-16 15:18 | RADIOLOGY REPORT ---
EXAM: US ULTRASOUND OF ABDOMEN HISTORY: RUQ plz COMPARISON: CT CT ABDOMEN PELVIS on DOS: 07/05/25, CT CT ABDOMEN PELVIS W/ IV ORAL CONTRAST on DOS: 03/31/25, CT CT ABDOMEN PELVIS on DOS: 03/23/25, CT ABDOMEN PELVIS on DOS: 10/19/21, CT ABDOMEN PELVIS on DOS: 10/04/21 TECHNIQUE: Real-time grayscale and color flow images of the abdomen were obtained. FINDINGS: LIVER: Liver measures 17.97 cm craniocaudal. Liver parenchyma is homogeneous in echotexture. No focal lesion is identified. No intrahepatic ductal dilatation. Normal directional flow is seen in the portal vein. GALLBLADDER: No gallstones. No gallbladder wall edema or pericholecystic fluid. Possible 2 mm gallbladder polyp. Gallbladder wall thickness is 3 mm. A sonographic wilks sign was present. COMMON BILE DUCT: 4 mm in caliber. KIDNEYS: The right kidney measures 12.8 cm in length. No hydronephrosis. No suspicious renal lesions. No sonographic evidence of calculi. PANCREAS: Obscured by overlying bowel gas. IMPRESSION: 1. No cholelithiasis, gallbladder wall thickening, or pericholecystic fluid. A sonographic wilks sign was present. Possible 2 mm gallbladder polyp. 2. Mild hepatomegaly.
--- NOTE | 2025-08-16 15:22 | RADIOLOGY REPORT ---
CHEST RADIOGRAPH INDICATION: Right upper quadrant pain TECHNIQUE: Single frontal view of the chest was obtained COMPARISON: DI CHEST,SINGLE VIEW on DOS: 01/22/24 FINDINGS: Lines and Tubes: Partially imaged Right IJ approach port-A-Cath, terminating over the distal SVC.. Lungs: No focal consolidation. Mild interstitial prominence. Pleura: No effusion. No pneumothorax. Cardiomediastinal contours: Unremarkable Bones: No acute osseous abnormality. Suggested surgical clips of the right axilla. IMPRESSION: Mild pulmonary vascular congestion. No focal consolidation.
[2025-08-16 15:35] VITALS: TEMP 99.8
[2025-08-16 15:55] LABS: URINE HCG NEGATIVE (NEG)
[2025-08-16 15:58] LABS: LEUKOCYTE ESTERASE ,URINE NEGATIVE (Neg); NITRITES, URINE POSITIVE (Neg); OCCULT BLOOD,URINE NEGATIVE (Neg)
[2025-08-16 16:04] LABS: UA COLLECTION TYPE CLN CATCH MIDSTREAM
[2025-08-16 16:08] LABS: MUCUS STRANDS FEW /LPF (Neg); SQUAMOUS EPITHELIAL CELL,UR FEW /LPF (FEW)
[2025-08-16] MEDS: ketorolac trometh 15mg/ml vial 15 MG/ML ML IV ONE (16:59)
[2025-08-16 17:08] VITALS: BP 133/103; PULSE 91; RESP 16; O2SAT 96
[2025-08-16 17:39] LABS: INFLUENZA TYPE A ANTIGEN RAPID NEGATIVE (Negative); INFLUENZA TYPE B ANTIGEN RAPID NEGATIVE (Negative)
--- NOTE | 2025-08-17 07:56 | ELECTROCARDIOGRAPH REPORT ---
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 RAFAELA Fitch Measurements Intervals [place] Rate: 92 P: 60 DE: 134 QRS: -72 QRSD: 144 T: 22 QT: 383 QTc: 474 Interpretive Statements Sinus rhythm RBBB and LAFB Electronically Signed On 08-17-2025 19:39:[address] RAFAELA Fitch Please click the below link to view image of tracing.
== END 2025-08-16 17:10 | disposition home or self-care (01) ==
LOC: ER 13:46
DX: R10.11 Right upper quadrant pain (principal); R05.9 Cough, unspecified; R09.81 Nasal congestion; I10 Essential (primary) hypertension; Z86.73 Personal history of transient ischemic attack (TIA), and cerebral infarction without residual deficits; Z88.1 Allergy status to other antibiotic agents; Z88.8 Allergy status to other drugs, medicaments and biological substances; Z90.49 Acquired absence of other specified parts of digestive tract; Z91.041 Radiographic dye allergy status; Z98.51 Tubal ligation status; Z20.822 Contact with and (suspected) exposure to COVID-19
CPT/HCPCS: 36415; 71045; 76700; 80053; 81001; 81025; 83690; 85025; 87088; 87186; 87804; 87811; 93005; 96374; 99285; J1885; 87077